=== PATIENT | male | born 1935 | race Caucasian/White ===

== ENCOUNTER 2021-12-21 11:33 | Outpatient (CLI) | payer MEDICARE, BC, SELFPAY ==
[2021-12-21 16:21] LABS: Chloride* 101 mmol/L (96-114)
[2021-12-21 16:22] LABS: Potassium* 5.3 mmol/L (3.6-5.1); Sodium* 137 mmol/L (135-149)
[2021-12-21 16:24] LABS: Carbon Dioxide* 28 mmol/L (20-32); Creatinine* 1.6 mg/dL (0.5-1.5); Estimated Glomerular Filt Rate 42 ml/min
[2021-12-21 16:25] LABS: Blood Urea Nitrogen* 27 mg/dL (7-30); Calcium* 8.8 mg/dL (8.4-10.6); Glucose* 136 mg/dL (60-115)
== END 2021-12-21 11:34 | disposition home or self-care (01) ==
LOC: LKVREF 11:34
PROVIDERS: PCP Emergency Medicine; Visit Provider Emergency Medicine
DX: I10 Essential (primary) hypertension (principal); E78.5 Hyperlipidemia, unspecified; E11.9 Type 2 diabetes mellitus without complications; M10.9 Gout, unspecified; F41.9 Anxiety disorder, unspecified
CPT/HCPCS: 80048

== ENCOUNTER 2022-01-20 15:15 | Outpatient (CLI) | payer MEDICARE, BC, SELFPAY ==
[2022-01-20 22:04] LABS: Potassium* 5.2 mmol/L (3.6-5.1)
== END 2022-01-20 15:16 | disposition home or self-care (01) ==
LOC: LKVREF 15:15
PROVIDERS: PCP Emergency Medicine; Visit Provider Emergency Medicine
DX: E87.6 Hypokalemia (principal)
CPT/HCPCS: 84132

== ENCOUNTER 2022-02-24 06:25 | Emergency (ER) | payer MEDICARE, BC, SELFPAY ==
[2022-02-24 06:27] VITALS: BP 187/116; PULSE 90; RESP 30; TEMP 36.4; O2SAT 82; BMI 34.6
[2022-02-24] MEDS: IPRAT-ALBUT 0.5-2.5 MG/3 ML NEB 1 NEB IH (06:30)
--- NOTE | 2022-02-24 06:42 | ED_ITS ---
HPI - SOB/Dyspnea General Chief Complaint: Shortness of Breath/Dyspnea <Jennifer Tatum MD - Last Filed: 02/24/22 08:12> Stated Complaint: can't breathe <Jennifer Tatum MD - Last Filed: 02/24/22 08:12> Time Seen by Provider: 02/24/22 06:38 <Jennifer Tatum MD - Last Filed: 02/24/22 08:12> Source: patient <Jennifer Tatum MD - Last Filed: 02/24/22 08:12> Mode of arrival: ambulatory <Jennifer Tatum MD - Last Filed: 02/24/22 08:12> Limitations: no limitations <Jennifer Tatum MD - Last Filed: 02/24/22 08:12> History of Present Illness HPI Narrative: 87-year-old male with a known prior history of COPD presents with increasing dyspnea, for the last week. Patient reports that he was evaluated in urgent care yesterday, chest x-ray was performed, he was giving a nebulizer solution. Was not started on antibiotics or steroids. He notes no fever but is having increasing fatigue. He has started the Combivent that they prescribed in shows me the inhaler. As cough, it is nonproductive. There is no chest pain. He denies a prior history of cardiac disease. Chest x-ray and Urgent Care notes are reviewed. He states that his appetite has been normal, illness exposures. He no longer smokes. He says that the dyspnea is getting worse despite use of the inhaler, prompting presentation to the ED. Upon arrival it is noted that his oxygen lesions or 82%. He denies chest pain or cardiac history, no orthopnea or swelling in his legs. He does have a notable prior history of sleep apnea but does not use a CPAP, as he did not get a good air seal with his baumann. He did not try any other interventions at home prior to coming to the emergency department. Past medical history notable for diabetes, COPD, hypertension, chronic kidney disease, depression. Medications are reviewed and verified through our electronic records. He denies allergies. Socially he is a former smoker but denies any pertinent travel or recent tobacco exposure. ROS is notable for the generalized and respiratory symptoms as described above, otherwise denies times 12 systems. <Jennifer Tatum MD - Last Filed: 02/24/22 08:12> Related Data Home Medications: Home Medications Medication Instructions Recorded Confirmed aspirin 81 mg tablet,delayed 81 mg PO QDAY 11/28/21 02/23/22 release gabapentin 100 mg capsule 100 mg PO TID 11/28/21 02/23/22 [id number] acid 300 1 tab PO QDAY 11/28/21 02/23/22 mcg-lycopene 600 mcg-lutein 300 mcg tablet (Centrum Silver Men) vitamin A-vitamin C-vit E-min 1 tab PO QDAY 11/28/21 02/23/22 tablet Previous Rx's Medication Instructions Recorded metoprolol succinate 50 mg 50 mg PO QDAY #90 tabs 12/07/21 tablet,extended release 24 hr allopurinol 300 mg tablet 300 mg PO QPM #90 tabs 12/21/21 escitalopram oxalate 5 mg tablet 5 mg PO QPM #90 tabs 12/21/21 hydrochlorothiazide 12.5 mg capsule 12.5 mg PO QAM #90 caps 12/21/21 lisinopril 20 mg tablet 20 mg PO QDAY #90 tabs 12/21/21 omeprazole 20 mg capsule,delayed 20 mg PO QDAY #90 caps 12/21/21 release simvastatin 40 mg tablet 40 mg PO QPM #90 tabs 12/21/21 ipratropium 20 mcg-albuterol 100 1 puff inhalation QID PRN sob #4 01/13/22 mcg/actuation mist for inhalation grams (Combivent Respimat) albuterol sulfate 90 mcg/actuation 2 inh inhalation Q2-3H PRN 02/24/22 aerosol inhaler shortness of breath or wheezing #8.5 grams azithromycin 250 mg tablet 250 mg PO DAILY 4 days #4 tabs 02/24/22 prednisone 20 mg tablet 20 mg PO DAILY #15 tabs 02/24/22 <Jennifer Tatum MD - Last Filed: 02/24/22 08:12> Allergies/Adverse Reactions: Allergies Allergy/AdvReac Type Severity Reaction Status Date / Time No Known Allergies Allergy Unverified 02/23/22 14:57 <Jennifer Tatum MD - Last Filed: 02/24/22 08:12> [facility] Medical History: Medical History (Updated 02/24/22 @ 07:51 by Jennifer Tatum MD) Barretts esophagus COPD (chronic obstructive pulmonary disease) Diabetes mellitus type 2, controlled, without complications Gastrointestinal stromal tumor (GIST) Mass of stomach Suspected sleep apnea <Jennifer Tatum MD - Last Filed: 02/24/22 08:12> Surgical History: Surgical History (Updated 12/01/21 @ 09:30 by Moe Hernandez) History of appendectomy History of hemicolectomy Status post partial gastrectomy <Jennifer Tatum MD - Last Filed: 02/24/22 08:12> Family History: Family History (Updated 12/01/21 @ 09:31 by Moe Hernandez) Mother Cancer Father Myocardial infarction <Jennifer Tatum MD - Last Filed: 02/24/22 08:12> Social History: Social History (Updated 12/01/21 @ 09:32 by Moe Hernandez) Narrative: Daily consumption of alcohol Does not use illicit drugs Former smoker Past Problems: Rarely consumes alcohol Smoking Status: Former smoker Do you use any of these nicotine containing products: None Second hand tobacco smoke exposure: No How often do you have a drink containing alcohol: never AUDIT-C Alcohol total score: 0 service: No <Jennifer Tatum MD - Last Filed: 02/24/22 08:12> Exam Const: Vital Signs, click to edit/add: Vital Signs - 24 hr 02/24/22 06:27 02/24/22 08:56 02/24/22 07:45 Temperature 97.6 F Pulse Rate [Left P ulse Oximeter] 90 86 Respiratory Rate 30 H 20 Blood Pressure [Le ft Upper Arm] 187/116 H 146/77 H Pulse Oximetry 82 L 98 98 Oxygen Delivery Me thod Room Air Nasal Cannula Nasal Cannula Oxygen Flow Rate 2 02/24/22 09:00 02/24/22 11:36 Temperature Pulse Rate [Left P ulse Oximeter] 87 87 Respiratory Rate 20 20 Blood Pressure [Le ft Upper Arm] 153/77 H 141/63 H Pulse Oximetry 94 96 Oxygen Delivery Me thod Nasal Cannula Room Air Oxygen Flow Rate <Jennifer Tatum MD - Last Filed: 02/24/22 08:12> Vital Signs, click to edit/add: Vital Signs - 24 hr 02/24/22 06:27 02/24/22 08:56 02/24/22 07:45 Temperature 97.6 F Pulse Rate [Left P ulse Oximeter] 90 86 Respiratory Rate 30 H 20 Blood Pressure [Le ft Upper Arm] 187/116 H 146/77 H Pulse Oximetry 82 L 98 98 Oxygen Delivery Me thod Room Air Nasal Cannula Nasal Cannula Oxygen Flow Rate 2 02/24/22 09:00 02/24/22 11:36 Temperature Pulse Rate [Left P ulse Oximeter] 87 87 Respiratory Rate 20 20 Blood Pressure [Le ft Upper Arm] 153/77 H 141/63 H Pulse Oximetry 94 96 Oxygen Delivery Me thod Nasal Cannula Room Air Oxygen Flow Rate <Fredrick Vincent MD - Last Filed: 02/25/22 01:08> Documenting provider has reviewed patient's vital signs: yes <Jennifer Tatum MD - Last Filed: 02/24/22 08:12> Common normals: alert <Jennifer Tatum MD - Last Filed: 02/24/22 08:12> General appearance: well kempt <Jennifer Tatum MD - Last Filed: 02/24/22 08:12> Other: Patient is visibly dyspneic with prolonged expiration, tachypnea and use of accessory muscles. There is barrel chest deformity and mild cyanosis of the lips. He is cooperative but mildly anxious which is clinically appropriate. He can not answer questions appropriately and does not seem obtunded.. <Jennifer Tatum MD - Last Filed: 02/24/22 08:12> HENMT: Common normals: normocephalic <Jennifer Tatum MD - Last Filed: 02/24/22 08:12> Head and scalp: normocephalic <Jennifer Tatum MD - Last Filed: 02/24/22 08:12> Mouth: oral and palatal mucosa normal <Jennifer Tatum MD - Last Filed: 02/24/22 08:12> Throat: posterior oropharynx normal <Jennifer Tatum MD - Last Filed: 02/24/22 08:12> Eye: Common normals: PERRL and conjunctivae normal <MD Stephy Mancini Last Filed: 02/24/22 08:12> Conjunctiva: conjunctiva(e) normal <MD Stephy Mancini Last Filed: 02/24/22 08:12> Pupil: PERRL <MD Stephy Mancini Last Filed: 02/24/22 08:12> Neck & C-Spine: Common normals: full ROM and no lymphadenopathy <MD Stephy Mancini Last Filed: 02/24/22 08:12> Chest: Other: Chronic COPD changes to the chest, nontender <MD Stephy Mancini Last Filed: 02/24/22 08:12> Resp: Other: Increased respiratory effort noted, marked prolongation of expiration about a 5- 1 ratio. Course expiratory wheeze but no obvious crackles. <MD Stephy Mancini Last Filed: 02/24/22 08:12> Cardio: Common normals: regular rate, regular rhythm, no murmurs and peripheral pulses 2+ throughout <MD Stephy Mancini Last Filed: 02/24/22 08:12> Rate: regular rate <MD Stephy Mancini Last Filed: 02/24/22 08:12> Rhythm: regular rhythm <MD Stephy Mancini Last Filed: 02/24/22 08:12> Peripheral pulses: pulses 2+ throughout <MD Stephy Mancini Last Filed: 02/24/22 08:12> GI: Common normals: Normal to inspection, nondistended, normoactive bowel sounds present, soft to palpation, non-tender and no hepatosplenomegaly <MD Stephy Mancini Last Filed: 02/24/22 08:12> Palpation: soft and no hepatosplenomegaly <MD Stephy Mancini Last Fi led: 02/24/22 08:12> Extremity: Common normals: normal to inspection, normal capillary refill and no pedal edema <MD Stephy Mancini Last Filed: 02/24/22 08:12> Neuro: Sensorium/orientation: alert <Jennifer Tatum MD - Last Filed: 02/24/22 08:12> Speech: speech normal <Jennifer Tatum MD - Last Filed: 02/24/22 08:12> Motor exam: no tremor noted and no movement abnormalities noted <Jennifer Tatum MD - Last Filed: 02/24/22 08:12> Psych: Common normals: speech normal <Jennifer Tatum MD - Last Filed: 02/24/22 08:12> Appearance: well kempt <Jennifer Tatum MD - Last Filed: 02/24/22 08:12> Attitude: engaged <Jennifer Tatum MD - Last Filed: 02/24/22 08:12> Speech: normal speech <Jennifer Tatum MD - Last Filed: 02/24/22 08:12> Insight: insight good <Jennifer Tatum MD - Last Filed: 02/24/22 08:12> Judgement: judgment good <Jennifer Tatum MD - Last Filed: 02/24/22 08:12> Skin: Common normals: no rashes or lesions noted <Jennifer Tatum MD - Last Filed: 02/24/22 08:12> General skin exam: no rashes or lesions noted <Jennifer Tatum MD - Last Filed: 02/24/22 08:12> Course Reevaluation(s) Reevaluation #1: Received Mr. Galvan at change of shift. Pending effect of steroid. He has received antibiotics. Oxygenating upper 90s on 2 L per nasal cannula. Reports feeling he is wheezy and a little short of breath but overall improved. Will titrate back on oxygen given COPD dx. <Fredrick Vincent MD - Last Filed: 02/25/22 01:08> Reevaluation #2: COVID positive. Reviewing this with Mr. Galvan reveals that he had COVID a month ago he says. Doing better from a respiratory standpoint. Oxygen has been turned off. Will also ambulate to check oxygen saturation. <Fredrick Vincent MD - Last Filed: 02/25/22 01:08> Reevaluation #3: Oxygen saturations now maintained at acceptable level. Overall feels improved. Regardless no beds available in this hospital or regionally at this time. <Fredrick Vincent MD - Last Filed: 02/25/22 01:08> Vital Signs Vital signs: Initial Vital Signs Temperature 97.6 F 02/24/22 06:27 Temperature Source Temporal Artery Scan 02/24/22 06:27 Pulse Rate 90 02/24/22 06:27 Respiratory Rate 30 H 02/24/22 06:27 Blood Pressure 187/116 H 02/24/22 06:27 Blood Pressure Mean 139 02/24/22 06:27 Blood Pressure Position High-Fowlers 02/24/22 06:27 Pulse Oximetry 82 L 02/24/22 06:27 Oxygen Delivery Method 02/24/22 06:27 Vital Signs Temperature 97.6 F 02/24/22 06:27 Pulse Rate 90 02/24/22 06:27 Respiratory Rate 30 H 02/24/22 06:27 Blood Pressure 187/116 H 02/24/22 06:27 Pulse Oximetry 82 L 02/24/22 06:27 Oxygen Delivery Method 02/24/22 06:27 Temperature 97.6 F 02/24/22 06:27 Pulse Rate 87 02/24/22 11:36 Respiratory Rate 20 02/24/22 11:36 Blood Pressure 141/63 H 02/24/22 11:36 Pulse Oximetry 96 02/24/22 11:36 Oxygen Delivery Method 02/24/22 11:36 Oxygen Flow Rate 2 02/24/22 07:45 <Jennifer Tatum MD - Last Filed: 02/24/22 08:12> Initial Vital Signs Temperature 97.6 F 02/24/22 06:27 Temperature Source Temporal Artery Scan 02/24/22 06:27 Pulse Rate 90 02/24/22 06:27 Respiratory Rate 30 H 02/24/22 06:27 Blood Pressure 187/116 H 02/24/22 06:27 Blood Pressure Mean 139 02/24/22 06:27 Blood Pressure Position High-Fowlers 02/24/22 06:27 Pulse Oximetry 82 L 02/24/22 06:27 Oxygen Delivery Method 02/24/22 06:27 Vital Signs Temperature 97.6 F 02/24/22 06:27 Pulse Rate 90 10/28/22 06:27 Respiratory Rate 30 H 02/24/22 06:27 Blood Pressure 187/116 H 02/24/22 06:27 Pulse Oximetry 82 L 02/24/22 06:27 Oxygen Delivery Method 02/24/22 06:27 Temperature 97.6 F 02/24/22 06:27 Pulse Rate 87 02/24/22 11:36 Respiratory Rate 20 02/24/22 11:36 Blood Pressure 141/63 H 02/24/22 11:36 Pulse Oximetry 96 02/24/22 11:36 Oxygen Delivery Method 02/24/22 11:36 Oxygen Flow Rate 2 02/24/22 07:45 <Fredrick Vincent MD - Last Filed: 02/25/22 01:08> MDM - SOB/Dyspnea MDM Narrative Medical decision making narrative: Hypoxia noted on arrival, placed on supplemental oxygen. Oxygen saturations improved to about 90% pretty quickly with this intervention. He will receive DuoNeb, laboratory studies. The benefit outweighs the risk in starting steroids. I have reviewed the previous chest x-ray performed yesterday, will not repeat. No obvious signs of heart failure but significant changes with chronic COPD. Will start Rocephin and azithromycin. He will likely need hospitalization. Differential diagnosis also includes acute coronary syndrome, pulmonary embolism. Laboratory studies to look at troponins will be performed. EKG is performed and is reassuring. Awaiting clinical response and re-evaluation. 7:30 a.m.: Repeat evaluation: A little less dyspnea, oxygen levels now around 90% on 2 L nasal cannula but feels less dyspneic after DuoNeb. Still markedly wheezy with prolongation of expiration and coarse breath sounds. Lab studies reviewed, actually a little better than usual for him. Blood pressure noted to be improved. Troponins negative, chest x-ray findings reviewed from yesterday with patient, not repeated. Admission discussed. He cannot maintain appropriate saturations without supplemental oxygen. I suspect that he would benefit from admission, additional IV steroids and antibiotics to help with his acute hypoxic respiratory failure. We do not have a bed available currently better likely to have 1 later this morning. He is willing to wait for 1 here rather than transfer to an outside hospital as there are no other beds available within a 2 hour radius. In the interim, I will order a regular diet, order DuoNebs p.r.n.. He has already started IV steroids and antibiotics. We will have Pharmacy verify his morning medications that we may get these ordered as well. A.c. at bedtime Accu-Cheks with sliding scale insulin ordered. Hand off to be given to Dr. Davis. <Jennifer Tatum MD - Last Filed: 02/24/22 08:12> Differential Diagnosis Differential diagnosis: Likely acute exacerbation of chronic obstructive airways disease, congestive heart failure, community acquired pneumonia, asthma with exacerbation and pulmonary embolism <Jennifer Tatum MD - Last Filed: 02/24/22 08:12> Medical Records Attestation: I reviewed the patient's medical records. <Jennifer Tatum MD - Last Filed: 02/24/22 08:12> Lab Data Attestation: I reviewed the patient's lab results. <Jennifer Tatum MD - Last Filed: 02/24/22 08:12> Labs: Lab Results 02/24/22 02/24/22 02/24/22 Range/Units 06:35 06:35 06:38 WBC (4.50-11.00) K/uL RBC (4.30-5.90) m/uL Hgb (13.5-17.5) gm/dL Hct (37.0-53.0) % MCV (80-100) fL MCH (26-34) pg MCHC (32-36) gm/dL RDW Coeff of Juanita (11.5-15.5) % Plt Count (140-440) K/uL Neut % (Auto) (42.0-72.0) % Lymph % (Auto) (20-44) % [place] % (Auto) (0.0-11.0) % Eos % (Auto) (0.0-7.0) % Baso % (Auto) (0.0-3.0) % Neut # (Auto) (1.7-7.0) K/uL Lymph # (Auto) (0.90-2.90) K/uL [place] # (Auto) (0.00-0.90) K/UL Eos # (Auto) (0.00-0.50) K/uL Baso # (Auto) (0.00-0.30) K/uL Abs Immat Gran (auto) (0.00-0.30) K/uL VBG pH 7.313 L (7.32-7.43) VBG pCO2 48 (40-50) mmHG VBG pO2 47.9 H (25-47) mmHG VBG HCO3 24 (21-28) mmol/L Sodium (135-149) mmol/L Potassium (3.6-5.1) mmol/L Chloride (96-114) mmol/L Carbon Dioxide (20-32) mmol/L BUN (7-30) mg/dL Creatinine (0.5-1.5) mg/dL Estimated Creat Clear Estimated GFR ml/min Glucose (60-115) mg/dL Calcium (8.4-10.6) mg/dL C-Reactive Protein (0.5-1.0) mg/dL NT-Pro-B Natriuret Pep 357 (0-450) PG/mL SARS-CoV-2 (PCR) POSITIVE SARS-CoV-2 A (Negative) Influenza Type A (PCR) Negative PCR FLU A (Negative) Influenza Type B (PCR) Negative PCR FLU B (Negative) RSV (PCR) Negative PCR RSV (Negative) POC Glucose (60-115) mg/dl POC Troponin I (0.01-0.04) ng/ml 02/24/22 02/24/22 02/24/22 Range/Units 06:40 06:40 06:40 WBC 7.80 (4.50-11.00) K/uL RBC 3.66 L (4.30-5.90) m/uL Hgb 12.4 L (13.5-17.5) gm/dL Hct 37.5 (37.0-53.0) % MCV 103 H (80-100) fL MCH 34 (26-34) pg MCHC 33 (32-36) gm/dL RDW Coeff of Juanita 13.0 (11.5-15.5) % Plt Count 162 (140-440) K/uL Neut % (Auto) 50.8 (42.0-72.0) % Lymph % (Auto) 29.1 (20-44) % [place] % (Auto) 5.8 (0.0-11.0) % Eos % (Auto) 12.4 H (0.0-7.0) % Baso % (Auto) 0.4 (0.0-3.0) % Neut # (Auto) 3.96 (1.7-7.0) K/uL Lymph # (Auto) 2.27 (0.90-2.90) K/uL [place] # (Auto) 0.50 (0.00-0.90) K/UL Eos # (Auto) 1.00 H (0.00-0.50) K/uL Baso # (Auto) 0.03 (0.00-0.30) K/uL Abs Immat Gran (auto) 0.12 (0.00-0.30) K/uL VBG pH (7.32-7.43) VBG pCO2 (40-50) mmHG VBG pO2 (25-47) mmHG VBG HCO3 (21-28) mmol/L Sodium 137 (135-149) mmol/L Potassium 4.6 (3.6-5.1) mmol/L Chloride 103 (96-114) mmol/L Carbon Dioxide 22 (20-32) mmol/L BUN 25 (7-30) mg/dL Creatinine 1.5 (0.5-1.5) mg/dL Estimated Creat Clear 37.65 Estimated GFR 45 ml/min Glucose 135 H (60-115) mg/dL Calcium 8.4 (8.4-10.6) mg/dL C-Reactive Protein 0.7 (0.5-1.0) mg/dL NT-Pro-B Natriuret Pep (0-450) PG/mL SARS-CoV-2 (PCR) (Negative) Influenza Type A (PCR) (Negative) Influenza Type B (PCR) (Negative) RSV (PCR) (Negative) POC Glucose (60-115) mg/dl POC Troponin I 0.01 (0.01-0.04) ng/ml 02/24/22 Range/Units 08:00 WBC (4.50-11.00) K/uL RBC (4.30-5.90) m/uL Hgb (13.5-17.5) gm/dL Hct (37.0-53.0) % MCV (80-100) fL MCH (26-34) pg MCHC (32-36) gm/dL RDW Coeff of Juanita (11.5-15.5) % Plt Count (140-440) K/uL Neut % (Auto) (42.0-72.0) % Lymph % (Auto) (20-44) % [place] % (Auto) (0.0-11.0) % Eos % (Auto) (0.0-7.0) % Baso % (Auto) (0.0-3.0) % Neut # (Auto) (1.7-7.0) K/uL Lymph # (Auto) (0.90-2.90) K/uL [place] # (Auto) (0.00-0.90) K/UL Eos # (Auto) (0.00-0.50) K/uL Baso # (Auto) (0.00-0.30) K/uL Abs Immat Gran (auto) (0.00-0.30) K/uL VBG pH (7.32-7.43) VBG pCO2 (40-50) mmHG VBG pO2 (25-47) mmHG VBG HCO3 (21-28) mmol/L Sodium (135-149) mmol/L Potassium (3.6-5.1) mmol/L Chloride (96-114) mmol/L Carbon Dioxide (20-32) mmol/L BUN (7-30) mg/dL Creatinine (0.5-1.5) mg/dL Estimated Creat Clear Estimated GFR ml/min Glucose (60-115) mg/dL Calcium (8.4-10.6) mg/dL C-Reactive Protein (0.5-1.0) mg/dL NT-Pro-B Natriuret Pep (0-450) PG/mL SARS-CoV-2 (PCR) (Negative) Influenza Type A (PCR) (Negative) Influenza Type B (PCR) (Negative) RSV (PCR) (Negative) POC Glucose 150 H (60-115) mg/dl POC Troponin I (0.01-0.04) ng/ml <Jennifer Tatum MD - Last Filed: 02/24/22 08:12> Lab Results 02/24/22 02/24/22 02/24/22 Range/Units 06:35 06:35 06:38 WBC (4.50-11.00) K/uL RBC (4.30-5.90) m/uL Hgb (13.5-17.5) gm/dL Hct (37.0-53.0) % MCV (80-100) fL MCH (26-34) pg MCHC (32-36) gm/dL RDW Coeff of Juanita (11.5-15.5) % Plt Count (140-440) K/uL Neut % (Auto) (42.0-72.0) % Lymph % (Auto) (20-44) % [place] % (Auto) (0.0-11.0) % Eos % (Auto) (0.0-7.0) % Baso % (Auto) (0.0-3.0) % Neut # (Auto) (1.7-7.0) K/uL Lymph # (Auto) (0.90-2.90) K/uL [place] # (Auto) (0.00-0.90) K/UL Eos # (Auto) (0.00-0.50) K/uL Baso # (Auto) (0.00-0.30) K/uL Abs Immat Gran (auto) (0.00-0.30) K/uL VBG pH 7.313 L (7.32-7.43) VBG pCO2 48 (40-50) mmHG VBG pO2 47.9 H (25-47) mmHG VBG HCO3 24 (21-28) mmol/L Sodium (135-149) mmol/L Potassium (3.6-5.1) mmol/L Chloride (96-114) mmol/L Carbon Dioxide (20-32) mmol/L BUN (7-30) mg/dL Creatinine (0.5-1.5) mg/dL Estimated Creat Clear Estimated GFR ml/min Glucose (60-115) mg/dL Calcium (8.4-10.6) mg/dL C-Reactive Protein (0.5-1.0) mg/dL NT-Pro-B Natriuret Pep 357 (0-450) PG/mL SARS-CoV-2 (PCR) POSITIVE SARS-CoV-2 A (Negative) Influenza Type A (PCR) Negative PCR FLU A (Negative) Influenza Type B (PCR) Negative PCR FLU B (Negative) RSV (PCR) Negative PCR RSV (Negative) POC Glucose (60-115) mg/dl POC Troponin I (0.01-0.04) ng/ml 02/24/22 02/24/22 02/24/22 Range/Units 06:40 06:40 06:40 WBC 7.80 (4.50-11.00) K/uL RBC 3.66 L (4.30-5.90) m/uL Hgb 12.4 L (13.5-17.5) gm/dL Hct 37.5 (37.0-53.0) % MCV 103 H (80-100) fL MCH 34 (26-34) pg MCHC 33 (32-36) gm/dL RDW Coeff of Jaunita 13.0 (11.5-15.5) % Plt Count 162 (140-440) K/uL Neut % (Auto) 50.8 (42.0-72.0) % Lymph % (Auto) 29.1 (20-44) % [place] % (Auto) 5.8 (0.0-11.0) % Eos % (Auto) 12.4 H (0.0-7.0) % Baso % (Auto) 0.4 (0.0-3.0) % Neut # (Auto) 3.96 (1.7-7.0) K/uL Lymph # (Auto) 2.27 (0.90-2.90) K/uL [place] # (Auto) 0.50 (0.00-0.90) K/UL Eos # (Auto) 1.00 H (0.00-0.50) K/uL Baso # (Auto) 0.03 (0.00-0.30) K/uL Abs Immat Gran (auto) 0.12 (0.00-0.30) K/uL VBG pH (7.32-7.43) VBG pCO2 (40-50) mmHG VBG pO2 (25-47) mmHG VBG HCO3 (21-28) mmol/L Sodium 137 (135-149) mmol/L Potassium 4.6 (3.6-5.1) mmol/L Chloride 103 (96-114) mmol/L Carbon Dioxide 22 (20-32) mmol/L BUN 25 (7-30) mg/dL Creatinine 1.5 (0.5-1.5) mg/dL Estimated Creat Clear 37.65 Estimated GFR 45 ml/min Glucose 135 H (60-115) mg/dL Calcium 8.4 (8.4-10.6) mg/dL C-Reactive Protein 0.7 (0.5-1.0) mg/dL NT-Pro-B Natriuret Pep (0-450) PG/mL SARS-CoV-2 (PCR) (Negative) Influenza Type A (PCR) (Negative) Influenza Type B (PCR) (Negative) RSV (PCR) (Negative) POC Glucose (60-115) mg/dl POC Troponin I 0.01 (0.01-0.04) ng/ml 02/24/22 Range/Units 08:00 WBC (4.50-11.00) K/uL RBC (4.30-5.90) m/uL Hgb (13.5-17.5) gm/dL Hct (37.0-53.0) % MCV (80-100) fL MCH (26-34) pg MCHC (32-36) gm/dL RDW Coeff of Juanita (11.5-15.5) % Plt Count (140-440) K/uL Neut % (Auto) (42.0-72.0) % Lymph % (Auto) (20-44) % [place] % (Auto) (0.0-11.0) % Eos % (Auto) (0.0-7.0) % Baso % (Auto) (0.0-3.0) % Neut # (Auto) (1.7-7.0) K/uL Lymph # (Auto) (0.90-2.90) K/uL [place] # (Auto) (0.00-0.90) K/UL Eos # (Auto) (0.00-0.50) K/uL Baso # (Auto) (0.00-0.30) K/uL Abs Immat Gran (auto) (0.00-0.30) K/uL VBG pH (7.32-7.43) VBG pCO2 (40-50) mmHG VBG pO2 (25-47) mmHG VBG HCO3 (21-28) mmol/L Sodium (135-149) mmol/L Potassium (3.6-5.1) mmol/L Chloride (96-114) mmol/L Carbon Dioxide (20-32) mmol/L BUN (7-30) mg/dL Creatinine (0.5-1.5) mg/dL Estimated Creat Clear Estimated GFR ml/min Glucose (60-115) mg/dL Calcium (8.4-10.6) mg/dL C-Reactive Protein (0.5-1.0) mg/dL NT-Pro-B Natriuret Pep (0-450) PG/mL SARS-CoV-2 (PCR) (Negative) Influenza Type A (PCR) (Negative) Influenza Type B (PCR) (Negative) RSV (PCR) (Negative) POC Glucose 150 H (60-115) mg/dl POC Troponin I (0.01-0.04) ng/ml <Fredrick Vincent MD - Last Filed: 02/25/22 01:08> Discharge Plan Discharge Clinical Impression: Acute respiratory failure with hypoxia, Acute exacerbation of chronic obstructive pulmonary disease (COPD) <Jennifer Tatum MD - Last Filed: 02/24/22 08:12> Patient Disposition: Home, Self-Care <Jennifer Tatum MD - Last Filed: 02/24/22 08:12> Condition: Improved <Jennifer Tatum MD - Last Filed: 02/24/22 08:12> Additional Instructions: I understand you have a follow-up with your primary care provider this following Sunday. You will be receiving another inhaler to use if you're feeling wheezy outside of the regularly scheduled Combivent. For both of these, please use with a spacer. Ask the pharmacist for spacer please. Return for persistent increasing shortness of breath, on associated fever, chest pain. As you are on a steroid, prednisone, please watch your blood sugars closely. <Jennifer Tatum MD - Last Filed: 02/24/22 08:12> Prescriptions: New prednisone 20 mg tablet 20 mg PO DAILY Qty: 15 0RF Rx Instructions: Take 60 mg starting on 02/25, take 40 mg days 2 through 5, then 20 mg daily days 6 through 10 azithromycin 250 mg tablet 250 mg PO DAILY 4 Days Qty: 4 0RF Taper: Z-MAGGI 250 mg Q24H for 4 Days and 0 Hour Rx Instructions: start on day 2 of therapy (02/25) albuterol sulfate 90 mcg/actuation HFA aerosol inhaler 2 inh inhalation Q2-3H PRN (Reason: shortness of breath or wheezing) Qty: 8.5 1RF Rx Instructions: use with spacer No Action allopurinol 300 mg tablet 300 mg PO QPM Qty: 90 1RF escitalopram oxalate 5 mg tablet 5 mg PO QPM Qty: 90 1RF hydrochlorothiazide 12.5 mg capsule 12.5 mg PO QAM Qty: 90 1RF lisinopril 20 mg tablet 20 mg PO QDAY Qty: 90 1RF omeprazole 20 mg capsule,delayed release(DR/EC) 20 mg PO QDAY Qty: 90 1RF simvastatin 40 mg tablet 40 mg PO QPM Qty: 90 1RF gabapentin 100 mg capsule 100 mg PO TID aspirin 81 mg tablet,delayed release (DR/EC) 81 mg PO QDAY vitamin A-vitamin C-vit E-min Tablet 1 tab PO QDAY Centrum Silver Men 300-600-300 mcg tablet 1 tab PO QDAY metoprolol succinate 50 mg tablet extended release 24 hr 50 mg PO QDAY Qty: 90 3RF Combivent Respimat 20-100 mcg/actuation mist 1 puff inhalation QID PRN (Reason: sob) Qty: 4 2RF Rx Instructions: space evenly during waking hours <Jennifer Tatum MD - Last Filed: 02/24/22 08:12> Follow Up/Referrals: Alexa Meng MD [Primary Care Provider] - <Jennifer Tatum MD - Last Filed: 02/24/22 08:12> [facility] <Jennifer Tatum MD - Last Filed: 02/24/22 08:12>
[2022-02-24 06:52] LABS: HCO3 VBG 24 mmol/L (21-28); PCO2 VBG 48 mmHG (40-50); PO2 VBG 47.9 mmHG (25-47); pH VBG 7.313 (7.32-7.43)
[2022-02-24 06:57] LABS: Basophils Absolute Auto 0.03 K/uL (0.00-0.30); Basophils Percent Auto 0.4 % (0.0-3.0); Eosinophils Percent Auto 12.4 % (0.0-7.0); Hematocrit 37.5 % (37.0-53.0); Hemoglobin* 12.4 gm/dL (13.5-17.5); Immature Granulocytes Abs Auto 0.12 K/uL (0.00-0.30); Lymphocytes Absolute Auto 2.27 K/uL (0.90-2.90); Lymphocytes Percent Auto 29.1 % (20-44); Mean Corpuscular HGB Conc 33 gm/dL (32-36); Mean Corpuscular Hemoglobin 34 pg (26-34); Mean Corpuscular Volume 103 fL (80-100); Monocytes Percent Auto 5.8 % (0.0-11.0); Neutrophils Absolute Auto 3.96 K/uL (1.7-7.0); Neutrophils Percent Auto 50.8 % (42.0-72.0); Platelet Count* 162 K/uL (140-440); Red Blood Count 3.66 m/uL (4.30-5.90)
[2022-02-24 06:58] LABS: Slide Review Reflex No
--- OUTSIDE RECORDS SUMMARY | 2022-02-24 07:13 | XMS_ITS | Encounter Summary ---
:1935 Author Organization [place] Address [facility] [place] [address] Care Team Providers Name Role Phone Antonio Cummings MD Primary Care Provider [facility], [facility]- Reason for Referral Specialty Diagnoses / Procedures Referred By Contact Refer red To Contact Ivelisse Purvis PA-C [address] [place] [address] Referral ID Status Reason Start Date Expiration Date Visits Requ ested Visits Authorized Reason for Visit Reason Comments Fall Encounter Details Date Type Department Care Team Description 12/15/2019 - Emergency [facility] Anusha Barboza DO [facility] [address] [place] [address] Mucosal abnormality of stomach (Primary Dx); 12/16/2019 Ridge Blu Dave MD [address] [place] [address] Abrasion of face, initial encounter; Dept Alcoholic intoxication witho ut complication (H); [address] Hypoglycemia; [place] Adrenal nodul e (H); [id number] of the abdomen; [phone] Abrasion of rig ht knee, initial encounter Social History Tobacco Use Types Packs/Day Years Used Date Smoking Tobacco: Former Alcohol Use Standard Drinks/Week Comments Yes 0.8 (1 standard drink = 0.6 oz pure alco hol) Sex Assigned at Date Recorded Not on file documented as of this encounter Last Filed Vital Signs Vital Sign Reading Time Taken Comments Blood Pressure 132/56 12/16/2019 7:41 AM CDT Pulse 69 12/16/2019 12:30 AM CDT Temperature 35.9 ??C (96.7 ??F) 12/16/2019 7:41 AM CDT Respiratory Rate 20 12/16/2019 7:41 AM CDT Oxygen Saturation 96% 12/16/2019 7:41 AM CDT Inhaled Oxygen Concentration - - Weight 112.4 kg (247 lb 12.8 oz) 12/16/2019 12:54 AM CDT Height 182.9 cm (6') 12/16/2019 12:54 AM CDT Body Mass Index 33.61 12/16/2019 12:54 AM CDT documented in this encounter Discharge Summaries Ivelisse Purvis PA-C - 12/16/2019 10:36 AM CDT [facility] Discharge Summary Hospitalist Date of Admission: 12/15/2019 Date of Discharge: 12/16/2019 Discharging Provider: Ivelisse Purvis PA-C Date of Service (when I saw the patient): 12/16/19 Discharge Diagnoses Fall Facial skin abrasion Alcohol Intoxication Suspected Alcohol dependence Hypoglycemia Hypertension Renal Insuffiencey Abnormal Stomach Mucosa appearance on CT Incidental Adrenal Nodule History of Present Illness Mat Galvan is a 84 year old male with PMhx of diabetes mellitus, HTN, CKD, GERD, lung nodules, arthritis, alcohol dependence, who was brought to the ED by EMS after a fall in his garage while intoxicated where he sustained several skin abrasions. He was registered to Observation for management ofhis hypoglycemia. His blood sugars improved with hold of his previously prescribed glipizide and dietary resumption as it was unclear when the patient had eaten a regular meal last. The patient was intoxicated on admission with a detectable etoh level. His CIWA scores were low during observation stay and the patient refused any alcohol cessation resources, was not interested in sobriety at this time.Imaging in the ED was negative for fractures, however it was suspected he may have sustained injury to his right anterolateral ribs which was treated supportively. 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 Please see admitting H & P for full details of the encounter. Pending Results These results will be followed up by lab with further directions if positive. Unresulted Labs Ordered in the Past 30 Days of this Admission Date and Time Order Name Status Description 12/16/2019 0002 Asymptomatic COVID-19 Virus (Coronavirus) by PCR In process Code Status Full Code Primary Care Physician [facility] INTERVAL HISTORY Patient has slight pain in his right sided anterolateral ribs with position changes and deep inspiration. Pain is controlled. No cough, fevers, chest pain. Tolerating normal diet. No nausea, vomiting. Glucoses improved. No dizziness, lightheaded, vision changes. CIWA scores low. No hallucinations. No fevers, chills. BP 132/56 Pulse 69 Temp 96.7 ??F (35.9 ??C) (Oral) Resp 20 Ht 1.829 m (6') Wt 112.4 kg (247 lb 12.8 oz) SpO2 96% BMI 33.61 kg/m?? Constitutional: Awake, alert, no apparent distress Respiratory: Normal work of breathing. Lungs clear to auscultation bilaterally, no crackles or wheezing. Cardiovascular: Regular rate and rhythm, normal S1 and S2, and no murmur appreciated. GI: Bowel sounds present. soft, non-distended, non-tender. Skin/Integument: Warm, dry. Right cheekbone with soft tissue swelling ecchymosis and superficial mandibular abrasion. MK: No gross deformities. Moving all extremities. Pain with palpations of anterolateral right sided ribs. Left superficial patellar abrasion. Neuro: No focal deficits. Slight intentional tremor. Coordination and sensation grossly intact. Speech clear. No focal deficits. Psych: Appropriate affect. No hallucinations, SI/SA. ?? Discharge Disposition Discharged to home Condition at discharge: Stable Consultations This Hospital Stay SOCIAL WORK IP CONSULT Time Spent on this Encounter IIvelisse PA-C, personally saw the patient today and spent greater than 30 minutes discharging this patient. Discharge Orders Gastroenterology Peds Referral +/- Procedure Reason for your hospital stay You were hospitalized after a fall sustained while drinking alcohol. You sustained a closed head injury and likely have some fractured right sided ribs. Imaging was negative for fracture or head bleed. During your hospital stay you were also noted to have low blood sugars. Your sugars improved after eating. Follow-up and recommended labs and tests Follow up with primary care provider, [facility], within 7 days to evaluate medication change and for hospital follow- up. The following labs/tests are recommended: BMP, Endoscopy with GI is for further evaluation of stomach polyp seen on CT. You should also have a repeat unenhanced CT of incidental 1.8 cm right adrenal nodule. Activity Your activity upon discharge: activity as tolerated When to contact your care team Call your primary care doctor if you have any of the following: temperature greater than 101 F, worsening shortness of breath, increased swelling, worsening pain, new or unrelenting diarrhea, or any other concerning symptoms. Call 911 or go to the emergency room if you need immediate assistance or ifyou have return of persistent low blood sugars <70. Monitor and record blood glucose as previously directed by your primary care provider. Monitor for blood in your stools or dark tarry stools. Discharge Instructions I recommend that you continue to check your blood sugars at home as previously directed by your primary care doctor. If your blood sugar is under 70 I want you to take a glucose tab or have a small amount of candy or juice and recheck your blood sugar. If persistently under 70 please present to the ED or notify your primary care provider for further recommendations. Please continue incentive spirometer to prevent a pneumonia. For your pain I recommend tylenol, ice and heat packs. For your skin abrasion on your face you may leave the wound open and cleanse gently with water, can use bacitracin ointment as needed. Diet Follow this diet upon discharge: Regular Discharge Medications Discharge Medication List as of 12/16/2019 10:06 AM START taking these medications Details acetaminophen (TYLENOL) 325 MG tablet Take 2 tablets (650 mg) by mouth every 4 hours as needed for mild pain, No Print Out glucose (BD GLUCOSE) 4 g chewable tablet Take 1 tablet by mouth every hour as needed for low blood sugar (For low blood sugars under 80) Please recheck your blood sugar after taking this to make sure it is coming up., Disp-10 tablet,R-0, E-Prescribe thiamine (B-1) 100 MG tablet Take 1 tablet (100 mg) by mouth daily Future refills by PCP [facility] with phone number [phone]., Disp-30 tablet,R-0, E-Prescribe CONTINUE these medications which have NOT CHANGED Details allopurinol (ZYLOPRIM) 300 MG tablet Take 300 mg by mouth daily., 300 mg, Oral, DAILY, Until Discontinued, Historical aspirin 81 MG tablet Take 1 tablet by mouth daily., 1 tablet, Oral, DAILY, Until Discontinued, Historical atenolol (TENORMIN) 50 MG tablet Take 50 mg by mouth daily., 50 mg, Oral, DAILY, Until Discontinued,Historical FISH OIL Does not apply, Until Discontinued, Historical lisinopril-hydrochlorothiazide (PRINZIDE,ZESTORETIC) 20-25 MG per tablet Take 1 tablet by mouth daily., 1 tablet, Oral, DAILY, Until Discontinued, Historical Omeprazole 20 MG tablet Take 20 mg by mouth daily., 20 mg, Oral, DAILY, Until Discontinued, Historical simvastatin (ZOCOR) 40 MG tablet Take 40 mg by mouth At Bedtime., 40 mg, Oral, AT BEDTIME, Until Discontinued, Historical STOP taking these medications glipiZIDE (GLUCOTROL XL) 2.5 MG 24 hr tablet Comments: Reason for Stopping: Allergies No Known Allergies Data Most Recent 3 CBC's: Recent Labs Lab Test 12/15/192215 WBC 7.9 HGB 12.6* MCV 104* PLT 143* Most Recent 3 BMP's: Recent Labs Lab Test 12/16/19 0804 12/15/19 221 NA 135 133 POTASSIUM 4.1 3.5 CHLORIDE 104 100 CO2 27 27 BUN 21 23 CR 1.44* 1.54* ANIONGAP 4 6 ANAND 8.0* 7.8* GLC 67* 56* Most Recent 2 LFT's: Recent Labs Lab Test 12/15/192215 AST 58* ALT 50 ALKPHOS 66 BILITOTAL 0.3 Most Recent INR's and Anticoagulation Dosing History: Anticoagulation Dose History Recent Dosing and Labs Latest Ref Rng & Units 12/15/2019 INR 0.86 - 1.14 1.00 Most Recent 3 Troponin's: Recent Labs Lab Test 12/15/19 2216 TROPI <0.015 Recent Labs Lab Test 12/15/19 2216 A1C 5.4 Results for orders placed or performed during the hospital encounter of 12/15/19 CT Head w/o Contrast Narrative EXAM: CT HEAD W/O CONTRAST LOCATION: [facility] DATE/TIME: 12/15/2019 10:38 PM INDICATION: Head injury COMPARISON: None. TECHNIQUE: Routine without IV contrast. Multiplanar reformats. Dose reduction techniques were used. FINDINGS: INTRACRANIAL CONTENTS: No intracranial hemorrhage, extraaxial collection, or mass effect. No CT evidence of acute infarct. Mild presumed chronic small vessel ischemic changes. Moderate generalized volume loss. No hydrocephalus. VISUALIZED ORBITS/SINUSES/MASTOIDS: Borderline bilateral proptosis. Moderate mucosal thickening scattered about the paranasal sinuses. No middle ear or mastoid effusion. BONES/SOFT TISSUES: No acute abnormality. Impression IMPRESSION: 1. No acute intracranial process. CT Cervical Spine w/o Contrast Narrative EXAM: CT CERVICAL SPINE W/O CONTRAST LOCATION: [facility] DATE/TIME: 12/15/2019 10:39 PM INDICATION: Neck injury COMPARISON: None. TECHNIQUE: Routine without IV contrast. Multiplanar reformats. Dose reduction techniques were used. FINDINGS: VERTEBRA: Normal vertebral body heights and alignment. No fracture or posttraumatic subluxation. CANAL/FORAMINA: Mild to moderate degenerative changes with mild canal narrowing at C6-C7. Mild left foraminal narrowing at C3-C4, C4-C5, and C6/C7. PARASPINAL: No extraspinal abnormality. Impression IMPRESSION: 1. No definite fracture. 2. Degenerative changes, as described. CT Facial Bones without Contrast Narrative EXAM: CT FACIAL BONES WITHOUT CONTRAST LOCATION: [facility] DATE/TIME: 12/15/2019 10:39 PM INDICATION: Facial injury COMPARISON: None. TECHNIQUE: Routine without IV contrast. Multiplanar reformats. Dose reduction techniques were used. FINDINGS: OSSEOUS STRUCTURES/SOFT TISSUES: Moderate soft tissue swelling overlying right cheek. No facial bonefracture or malalignment. No evidence for dental trauma or periapical abscess. ORBITAL CONTENTS: No acute abnormality. SINUSES: Moderate mucosal thickening scattered about the paranasal sinuses. VISUALIZED INTRACRANIAL CONTENTS: No acute abnormality. Impression IMPRESSION: 1. No definite fracture. CT Chest/Abdomen/Pelvis w Contrast Narrative EXAM: CT CHEST/ABDOMEN/PELVIS W CONTRAST LOCATION: [facility] DATE/TIME: 12/15/2019 10:40 PM INDICATION: Trauma -???Chest, abdomen, and pelvis injury. Fall. Pain. COMPARISON: None. TECHNIQUE: CT scan of the chest, abdomen, and pelvis was performed following injection of IV contrast. Multiplanar reformats were obtained. Dose reduction techniques were used. CONTRAST: 100mL Isovue-370 FINDINGS: LUNGS AND PLEURA: Small esophageal hiatal hernia. MEDIASTINUM/AXILLAE: Coronary artery calcification. HEPATOBILIARY: Normal. PANCREAS: Normal. SPLEEN: Calcified granulomata. ADRENAL GLANDS: Motion artifact. 1.8 cm nodule in the right adrenal gland is most likely an adenoma.This could be confirmed with a thin section unenhanced CT. KIDNEYS/BLADDER: Normal. BOWEL: Right hemicolectomy. There is a prominent ovoid well-defined 5.0 x 3.5 cm hypodense region within the distal gastric body. This has an appearance of a large intraluminal polyp and endoscopy is recommended in further evaluation. Colonic diverticula without CT evidence for diverticulitis. LYMPH NODES: Normal. VASCULATURE: Unremarkable. PELVIC ORGANS: Small fat-containing right inguinal hernia. MUSCULOSKELETAL: Lower lumbar degenerative change. Pronounced lower lumbar facet arthropathy. Impression IMPRESSION: 1. No acute change. 2. Well-defined ovoid 5.0 x 3.5 cm hypodense region in the distal gastric body. Endoscopy is suggested in further evaluation to exclude large polyp. 3. 1.8 cm right adrenal nodule is slightly obscured by motion. This most likely represents an adenoma and a thin section unenhanced CT could confirm this. 4. Previous right hemicolectomy. Colonic diverticula without CT evidence for diverticulitis. [facility] Associated attestation - Pio Messer MD - 12/17/2019 10:59 AM CDT Physician Attestation I, Pio Messer MD, have reviewed and discussed with the advanced practice provider their discharge plan for Mat Galvan. I did not participate in a shared visit by interviewing or examining the patient and this should be billed as an advanced practice provider only discharge. Pio Messer Date of Service (when I saw the patient): I did not personally see this patient today. documented in this encounter Discharge Instructions AttachmentsThe following attachments cannot be sent through Care Everywhere.(s) Treating Hypoglycemia (Low Blood Glucose): Type 1 and Type 2 Diabetes (French) documented in this encounter Medications at Time of Discharge Medication Sig Dispensed Refills Start Date End Date acetaminophen (TYLENOL) Take 2 tablets (650 0 325 MG tabletIndications: mg) by mouth every 4 Abrasion of right knee, hours as needed for initial encounter mild pain allopurinol (ZYLOPRIM) Take 300 mg by mouth 0 300 MG tablet daily. aspirin 81 MG tablet Take 1 tablet by mouth 0 daily. atenolol (TENORMIN) 50 MG Take 50 mg by mouth 0 tablet daily. FISH OIL 0 glucose (BD GLUCOSE) 4 g Take 1 tablet by mouth 10 tablet 0 12/16/2019 chewable every hour as needed tabletIndications: for low blood sugar Hypoglycemia (For low blood sugars under 80) Please recheck your blood sugar after taking this to make sure it is coming up. lisinopril-hydrochlorothi Take 1 tablet by mouth 0 azide daily. (PRINZIDE,ZESTORETIC) 20-25 MG per tablet Omeprazole 20 MG tablet Take 20 mg by mouth 0 daily. simvastatin (ZOCOR) 40 MG Take 40 mg by mouth At 0 tablet Bedtime. thiamine (B-1) 100 MG Take 1 tablet (100 mg) 30 tablet 0 tabletIndications: by mouth daily Future Alcoholic intoxication refills by PCP without complication (H) [facility] with phone number [phone]. documented as of this encounter Progress Notes Flor Casarez RN - 12/16/2019 10:10 AM CDT Per AM care rounds there are no CM/SW needs at this time. Will complete consult. Please call if needidentified. Flor Casarez RN BSN Weight Caller Inpatient Care Coordination [facility] documented in this encounter H&P Notes Blu Buchanan MD - 12/16/2019 12:53 AM CDT [facility] Hospitalist Admission Note Name: Mat Galvan Date of : 1935 Age: [age] year old Date of admission: 12/15/2019 Primary care provider: Antonio Cummings Assessment and Plan: Mat Galvan is a 84 year old male with known history of bwc-[id number]-msjanxmsc diabetes mellitus on sulfonylurea, hypertension, CKD, gouty arthritis, regular EtOH drinker, GERD, known lung nodules and lives at home with family and reportedly was on his usual state of health but has to be brought inhere in the emergency room by EMS personnel as apparently patient had a fall event outside of his garage and sustained facial laceration and abrasions. 1. Fall event 2. EtOH intoxication 3. Suspected EtOH dependence? 4. Hypoglycemia 5. History of diabetes mellitus tcz-fvhakkl-qvozewqnx on sulfonylurea 6. Hypertension 7. CKD 8. GERD 9. Incidentally found with adrenal nodules [place] under observation. Continue to monitor her glucose levels. May have regular diet. Discontinue sulfonylurea. Likely might not be the best oral regimen for him in the setting of his CKD, regular EtOH use. Check blood sugar levels, currently not requiring dextrose containing IV fluids. Low intensity insulin sliding scale if truly needed His fall events likely secondary to his EtOH intoxication with accompanying hypoglycemia Patient has known history of lung nodules, CT imaging today showed incidental finding of right adrenal nodule and possible gastric polyp. These findings were discussed with him and family as well by emergency room service. This will need to be follow-up in an outpatient basis. Watch for EtOH withdrawals, Code status: Full code Prophylaxis: Ambulate, mechanical PCD's if staying mostly in bed Disposition: Likely in the next 12 to 24 hours Chief Complaint: Fall event Source of Information: Patient with fair reliability Discussion with ED physician Review of E chart records History of Present Illness: Mat Galvan is a 84 year old male with known history of hfw-bkzcozd-ykwysjbow diabetes mellitus on sulfonylurea, hypertension, CKD, gouty arthritis, regular EtOH drinker, GERD, known lung nodules and lives at home with family and reportedly was on his usual state of health but has to be brought inhere in the emergency room by EMS personnel as apparently patient had a fall event outside of his garage and sustained facial laceration and abrasions. Patient stated that he has been drinking whiskey that started around 5 in the afternoon and likely has consumed approximately 1 quart of it. Last oral intake was this morning and and denies any nausea,vomiting, abdominal pain, diarrhea, fevers, chills, shortness of breath, back pain, bleeding tendencies, urinary symptoms, focal weakness nor slurring of speech. Upon further evaluation the emergency room he was ruled out for obvious fractures, found with EtOH intoxication as anticipated and expected, hypoglycemia that prompted his case to be referred to us forfurther management and care hence this hospitalization During the time of my exam he is glucose levels are within acceptable levels and Edward remained conversant, pleasant, interactive and endorses no other new complaints. Past Medical History: Past Medical History: Diagnosis Date ??? Gastro-oesophageal reflux disease ??? Gout ??? Hypertension Past Surgical History: Past Surgical History: Procedure Laterality Date ??? COLONOSCOPY ??? GI SURGERY bowel resection Social History: Social History Tobacco Use ??? Smoking status: Former Smoker Substance Use Topics ??? Alcohol use: Yes Alcohol/week: 0.8 standard drinks Types: 1 drink(s) per week Family History: Family history was fully reviewed and non-contributory in this case. Allergies: No Known Allergies Medications: Prior to Admission medications Medication Sig Last Dose Taking? Auth Provider allopurinol (ZYLOPRIM) 300 MG tablet Take 300 mg by mouth daily. Reported, Patient aspirin 81 MG tablet Take 1 tablet by mouth daily. Reported, Patient atenolol (TENORMIN) 50 MG tablet Take 50 mg by mouth daily. Reported, Patient FISH OIL Reported, Patient glipiZIDE (GLUCOTROL XL) 2.5 MG 24 hr tablet Take 2.5 mg by mouth daily. Reported, Patient lisinopril-hydrochlorothiazide (PRINZIDE,ZESTORETIC) 20-25 MG per tablet Take 1 tablet by mouth daily. Reported, Patient Omeprazole 20 MG tablet Take 20 mg by mouth daily. Reported, Patient simvastatin (ZOCOR) 40 MG tablet Take 40 mg by mouth At Bedtime. Reported, Patient Review of Systems: A Comprehensive greater than 10 system review of systems was carried out. Pertinent positives and negatives are noted above. Otherwise negative for contributory information. Physical Exam: Blood pressure (!) 162/94, pulse 75, temperature 97.6 ??F (36.4 ??C), temperature source Oral, resp.rate 24, SpO2 99 %. Wt Readings from Last 1 Encounters: 02/17/11 113.4 kg (250 lb) Exam: GENERAL: No apparent distress. Awake, alert, and fully oriented. HEENT: Normocephalic, atraumatic. Extraocular movements intact. Multiple facial abrasions CARDIOVASCULAR: Regular rate and rhythm without murmurs or rubs. No JVD PULMONARY: Clear to auscultation, no wheezes, crackles ABDOMINAL: Soft, non-tender, non-distended. Bowel sounds normoactive. No hepatosplenomegaly. EXTREMITIES: No cyanosis or clubbing. No edema. Multiple skin excoriations, hematoma NEUROLOGICAL: CN 2-12 grossly intact, awake and alert x3, spontaneous and coherent speech. no focal neurological deficits. DERMATOLOGICAL: No rash Psych: not agitation, not combative, pleasant mood Data: EKG: Normal sinus rhythm at 72 bpm Imaging: Results for orders placed or performed during the hospital encounter of 12/15/19 CT Head w/o Contrast Narrative EXAM: CT HEAD W/O CONTRAST LOCATION: [facility] DATE/TIME: 12/15/2019 10:38 PM INDICATION: Head injury COMPARISON: None. TECHNIQUE: Routine without IV contrast. Multiplanar reformats. Dose reduction techniques were used. FINDINGS: INTRACRANIAL CONTENTS: No intracranial hemorrhage, extraaxial collection, or mass effect. No CT evidence of acute infarct. Mild presumed chronic small vessel ischemic changes. Moderate generalized volume loss. No hydrocephalus. VISUALIZED ORBITS/SINUSES/MASTOIDS: Borderline bilateral proptosis. Moderate mucosal thickening scattered about the paranasal sinuses. No middle ear or mastoid effusion. BONES/SOFT TISSUES: No acute abnormality. Impression IMPRESSION: 1. No acute intracranial process. CT Cervical Spine w/o Contrast Narrative EXAM: CT CERVICAL SPINE W/O CONTRAST LOCATION: [facility] DATE/TIME: 12/15/2019 10:39 PM INDICATION: Neck injury COMPARISON: None. TECHNIQUE: Routine without IV contrast. Multiplanar reformats. Dose reduction techniques were used. FINDINGS: VERTEBRA: Normal vertebral body heights and alignment. No fracture or posttraumatic subluxation. CANAL/FORAMINA: Mild to moderate degenerative changes with mild canal narrowing at C6-C7. Mild left foraminal narrowing at C3-C4, C4-C5, and C6/C7. PARASPINAL: No extraspinal abnormality. Impression IMPRESSION: 1. No definite fracture. 2. Degenerative changes, as described. CT Facial Bones without Contrast Narrative EXAM: CT FACIAL BONES WITHOUT CONTRAST LOCATION: [facility] DATE/TIME: 12/15/2019 10:39 PM INDICATION: Facial injury COMPARISON: None. TECHNIQUE: Routine without IV contrast. Multiplanar reformats. Dose reduction techniques were used. FINDINGS: OSSEOUS STRUCTURES/SOFT TISSUES: Moderate soft tissue swelling overlying right cheek. No facial bonefracture or malalignment. No evidence for dental trauma or periapical abscess. ORBITAL CONTENTS: No acute abnormality. SINUSES: Moderate mucosal thickening scattered about the paranasal sinuses. VISUALIZED INTRACRANIAL CONTENTS: No acute abnormality. Impression IMPRESSION: 1. No definite fracture. CT Chest/Abdomen/Pelvis w Contrast Narrative EXAM: CT CHEST/ABDOMEN/PELVIS W CONTRAST LOCATION: [facility] DATE/TIME: 12/15/2019 10:40 PM INDICATION: Trauma -???Chest, abdomen, and pelvis injury. Fall. Pain. COMPARISON: None. TECHNIQUE: CT scan of the chest, abdomen, and pelvis was performed following injection of IV contrast. Multiplanar reformats were obtained. Dose reduction techniques were used. CONTRAST: 100mL Isovue-370 FINDINGS: LUNGS AND PLEURA: Small esophageal hiatal hernia. MEDIASTINUM/AXILLAE: Coronary artery calcification. HEPATOBILIARY: Normal. PANCREAS: Normal. SPLEEN: Calcified granulomata. ADRENAL GLANDS: Motion artifact. 1.8 cm nodule in the right adrenal gland is most likely an adenoma.This could be confirmed with a thin section unenhanced CT. KIDNEYS/BLADDER: Normal. BOWEL: Right hemicolectomy. There is a prominent ovoid well-defined 5.0 x 3.5 cm hypodense region within the distal gastric body. This has an appearance of a large intraluminal polyp and endoscopy is recommended in further evaluation. Colonic diverticula without CT evidence for diverticulitis. LYMPH NODES: Normal. VASCULATURE: Unremarkable. PELVIC ORGANS: Small fat-containing right inguinal hernia. MUSCULOSKELETAL: Lower lumbar degenerative change. Pronounced lower lumbar facet arthropathy. Impression IMPRESSION: 1. No acute change. 2. Well-defined ovoid 5.0 x 3.5 cm hypodense region in the distal gastric body. Endoscopy is suggested in further evaluation to exclude large polyp. 3. 1.8 cm right adrenal nodule is slightly obscured by motion. This most likely represents an adenoma and a thin section unenhanced CT could confirm this. 4. Previous right hemicolectomy. Colonic diverticula without CT evidence for diverticulitis. Labs: No results for input(s): CULT in the last 168 hours. Recent Labs Lab 12/15/192215 WBC 7.9 HGB 12.6* HCT 38.7* MCV 104* PLT 143* Recent Labs Lab 12/15/19 2218 12/15/19 221 NA -- 133 POTASSIUM -- 3.5 CHLORIDE -- 100 CO2 -- 27 ANIONGAP -- 6 GLC -- 56* BUN -- 23 CR -- 1.54* GFRESTIMATED 36* 41* GFRESTBLACK 44* 47* ANAND -- 7.8* PROTTOTAL -- 6.7* ALBUMIN -- 3.6 BILITOTAL -- 0.3 ALKPHOS -- 66 AST -- 58* ALT -- 50 Recent Labs Lab 12/15/19 2314 12/15/19 2229 12/15/19 2216 12/15/19 2202 GLC -- -- 56* -- BGM 85 89 -- 61* Recent Labs Lab 12/15/19 2216 INR 1.00 No results for input(s): LIPASE in the last 168 hours. Recent Labs Lab 12/15/192215 TROPI <0.015 Recent Labs Lab 12/16/19 0007 COLOR Straw APPEARANCE Clear URINEGLC Negative URINEBILI Negative URINEKETONE Negative SG 1.012 UBLD Negative URINEPH 5.0 PROTEIN Negative NITRITE Negative LEUKEST Negative RBCU 0 WBCU 1 documented in this encounter ED Notes Tyler Ascecnio RN - 12/16/2019 12:10 AM CDT [facility] ED Nurse Handoff Report Mat Galvan is a 84 year old male ED Chief complaint: Fall . ED Diagnosis: Final diagnoses: Abrasion of face, initial encounter Alcoholic intoxication without complication (H) Hypoglycemia Allergies: No Known Allergies Code Status: Full Code Activity level - Baseline/Home: Independent. Activity Level - Current: Assist X 1. Lift room needed:No. Bariatric: No Corporate Events Director Needed: No Isolation: No. Infection: Not Applicable. Vital Signs: Vitals: 12/15/19 2157 12/15/19 2200 12/15/19 2320 BP: (!) 165/77 (!) 165/77 Pulse: 77 Resp: Temp: 97.6 ??F (36.4 ??C) TempSrc: Oral SpO2: 98% Cardiac Rhythm: , Pain level: Patient confused: No. Patient Falls Risk: Yes. Elimination Status: Has voided Patient Report - Initial Complaint: Fall. Focused Assessment: Pt was found by at the bottom of the stairs in the garage and appears to have fallen onto his face. Pt was known to have been drinkingalcohol, unknown amount of intake. Blood all over face noted upon EMS arrival. C-spines maintained by EMS. Alert to self, unable to remember what happened. Pt is combative and confused upon arrival. ABCs intact. Tests Performed: labs, ekg, CT head, neck, Chest, abdomen. Abnormal Results: Labs Ordered and Resulted from Time of ED Arrival Up to the Time of Departure from the ED CBC WITH PLATELETS DIFFERENTIAL - Abnormal; Notable for the following components: Result Value RBC Count 3.73 (*) Hemoglobin 12.6 (*) Hematocrit 38.7 (*) MCV 104 (*) MCH 33.8 (*) Platelet Count 143 (*) All other components within normal limits COMPREHENSIVE METABOLIC PANEL - Abnormal; Notable for the following components: Glucose 56 (*) Creatinine 1.54 (*) GFR Estimate 41 (*) GFR Estimate If Black 47 (*) Calcium 7.8 (*) Protein Total 6.7 (*) AST 58 (*) All other components within normal limits ALCOHOL ETHYL - Abnormal; Notable for the following components: Ethanol g/dL 0.18 (*) All other components within normal limits GLUCOSE BY METER - Abnormal; Notable for the following components: Glucose 61 (*) All other components within normal limits CREATININE POCT - Abnormal; Notable for the following components: Creatinine 1.8 (*) GFR Estimate 36 (*) GFR Estimate If Black 44 (*) All other components within normal limits INR PARTIAL THROMBOPLASTIN TIME CK TOTAL GLUCOSE MONITOR NURSING POCT TROPONIN I GLUCOSE BY METER GLUCOSE MONITOR NURSING POCT GLUCOSE BY METER ROUTINE UA WITH MICROSCOPIC COVID-19 VIRUS (CORONAVIRUS) BY PCR RODRIGO COMA SCALE (GCS) ASSESSMENT PULSE OXIMETRY NURSING PERIPHERAL IV CATHETER IV ACCESS ABO/RH TYPE AND SCREEN CT Cervical Spine w/o Contrast Final Result IMPRESSION: 1. No definite fracture. 2. Degenerative changes, as described. CT Facial Bones without Contrast Final Result IMPRESSION: 1. No definite fracture. CT Head w/o Contrast Final Result IMPRESSION: 1. No acute intracranial process. CT Chest/Abdomen/Pelvis w Contrast Final Result IMPRESSION: 1. No acute change. 2. Well-defined ovoid 5.0 x 3.5 cm hypodense region in the distal gastric body. Endoscopy is suggested in further evaluation to exclude large polyp. 3. 1.8 cm right adrenal nodule is slightly obscured by motion. This most likely represents an adenoma and a thin section unenhanced CT could confirm this. 4. Previous right hemicolectomy. Colonic diverticula without CT evidence for diverticulitis. . Treatments provided: C-spines maintained until r/o, tylenol Family Comments: daughter at bedside OBS brochure/video discussed/provided to patient: Yes ED Medications: Medications acetaminophen (TYLENOL) tablet 1,000 mg (has no administration in time range) dextrose 50 % injection 50 mL (50 mLs Intravenous Given 12/15/192210) 0.9% sodium chloride BOLUS (65 mLs Intravenous New Bag 12/15/192253) iopamidol (ISOVUE-370) solution 500 mL (100 mLs Intravenous Given 12/15/192253) Drips infusing: No For the majority of the shift, the patient's behavior Green. Interventions performed were NA. Sepsis treatment initiated: No ED Nurse Name/Phone Number: Sil Chan RN, 12:10 AM RECEIVING UNIT ED HANDOFF REVIEW Above ED Nurse Handoff Report was reviewed: Yes Reviewed by: Tyler Ascencio RN on December 16, 2019 at 12:38 AM Sil Chan RN - 12/15/2019 10:00 PM CDT Pt was found by at the bottom of the stairs in the garage and appears to have fallen onto his face. Pt was known to have been drinking alcohol, unknown amount of intake. Blood all over face noted upon EMS arrival. C-spines maintained by EMS. Alert to self, unable to remember what happened. Pt is c ombative and confused upon arrival. ABCs intact. Brice Altman RN - 12/15/2019 9:59 PM CDT Bed: [id number] Expected date: 12/15/19 Expected time: 9:29 PM Means of arrival: Ambulance Comments: [id number] Kylie Barboza DO - 12/15/2019 9:59 PM CDT History Chief Complaint: Fall The history is provided by the patient and the EMS personnel. History limited by: alcohol intoxication. Mat Galvan is a 84 year old male with a history of hypertension, type II diabetes, gout, who presents after a fall via EMS. Per EMS report, the patient was found on the ground outside of his garage by his ashlee with noted facial laceration and abrasions. The patient's is reportedly very demented and was not able to provide details to the fall. He arrives with a c- collar in place. EMS did not obtain blood sugar en route. Here, the patient states that he is unsure how much he exactly drank tonight but estimates it was around a quart. He notes that he drinks 3-4 whiskey drinks nightly starting at 1700. He denies any current pain or drug use. The patient denies blood thinner use besides a baby aspirin daily. Allergies: No known drug allergies. Medications: Zocor Allopurinol Aspirin atenolol Glipizide lisinopril-hydrochlorothiazide Omeprazole simvastatin Past Medical History: GERD Gout Hypertension DAQUAN Obesity Type II diabetes Lung nodule Past Surgical History: Colonoscopy Bowel resection Family History: Family history reviewed. No pertinent family history. Social History: The patient was accompanied to the ED by EMS. Smoking Status: Former Smoker Smokeless Tobacco: Never Used Alcohol Use: Positive Drug Use: Negative PCP: Antonio Cummings Marital Status: Review of Systems Constitutional: Negative for fever. Denies pain Respiratory: Negative for shortness of breath. Cardiovascular: Negative for chest pain. Gastrointestinal: Negative for abdominal pain. Skin: Positive for wound. All other systems reviewed and are negative. Physical Exam Patient Vitals for the past 24 hrs: BP Temp Temp src Pulse Heart Rate Resp SpO2 12/15/19 2320 -- -- -- -- 78 26 98 % 12/15/19 2200 (!) 165/77 -- -- 77 -- 20 -- 12/15/19 2157 (!) 165 97.6 ??F (36.4 ??C) Oral -- -- -- -- Physical Exam General: Alert. C-collar in place Head: The face covered in dried blood; 3cm skin abrasion to R. face Eyes: Sclera white; Pupils are equal and round ENT: External ears normal. No hemotympanum. External nares normal. No septal hematoma. Bruising and abrasion noted to R. Upper lip Neck: No midline tenderness or pain with full ROM. CV: Rate as above with regular rhythm No murmur 2/2 radial and dorsal pedal pulses Resp: Breath sounds clear and equal bilaterally Non-labored, no retractions or accessory muscle use GI: Abdomen soft, non-tender, non-distended No rebound tenderness or guarding MSK: No midline tenderness or bony step-off No deformity Moves all extremities equally and symmetrically; abrasion to R. Knee though full ROM knee flexion/extension; abrasion to R. Palm; ecchymosis to RLQ Skin: No rash or lesions noted. Neuro: No apparent deficit. Strength 5/5 x4. Sensation intact x4. GCS: 15 Psych: Blunt affect bruising to right abdomen Emergency Department Course ECG: ECG taken at 2211, ECG read at 2211 Normal sinus rhythm Normal ECG Rate 72 bpm. TN interval 148 ms. QRS duration 108 ms. QT/QTc 416/455 ms. P-R-T axes 22 63 45. Imaging: Radiology findings were communicated with the patient who voiced understanding of the findings. CT Cervical Spine w/o Contrast 1. No definite fracture. 2. Degenerative changes, as described. CT Facial Bones without Contrast 1. No definite fracture. Reading per radiology CT Head w/o Contrast 1. No acute intracranial process. Reading per radiology CT Chest/Abdomen/Pelvis w Contrast 1. No acute change. 2. Well-defined ovoid 5.0 x 3.5 cm hypodense region in the distal gastric body. Endoscopy is suggested in further evaluation to exclude large polyp. 3. 1.8 cm right adrenal nodule is slightly obscured by motion. This most likely represents an adenoma and a thin section unenhanced CT could confirm this. 4. Previous right hemicolectomy. Colonic diverticula without CT evidence for diverticulitis. Reading per radiology Laboratory: Laboratory findings were communicated with the patient who voiced understanding of the findings. Asymptomatic COVID-19 Virus (Coronavirus) by PCR Nasopharyngeal swab: Pending UA: Ordered/Pending CBC: WBC 7.9, HGB 12.6 (L), PLT 143 (L) CMP: Glucose 56 (L), GFR 41 (L), Calcium 7.8 (L), Protein Total 6.7 (L), AST 58 (H), o/w WNL (Creatinine 1.54 (H)) Troponin (Collected 2215): <0.015 INR: 1.00 Partial Thromboplastin Time: 26 CK Total: 149 Creatinine POCT: Creatinine 1.8 (H), GFR 36 (L) Glucose by meter 2202: 61 (L) Glucose by meter 2216: 56 (L) Glucose by meter 2229: 89 Glucose by meter 2314: 85 Alcohol Ethyl: 0.18 (H) ABO/Rh Type and Screen: A positive, antibody negative [facility] Procedure Note FAST (Focused Assessment with Sonography for Trauma): PROCEDURE: PERFORMED BY: Dr. Kylie Barboza DO INDICATIONS/SYMPTOM: Trauma PROBE: Low frequency convex probe BODY LOCATION: The ultrasound was performed in the abdominal and subxiphoid areas. FINDINGS: No evidence of free fluid in hepatorenal (Morison's pouch), perisplenic, or and pelvic areas. No evidence of pericardial effusion. INTERPRETATION: The FAST exam was normal. There was no free fluid present. There was no pericardial effusion. IMAGE DOCUMENTATION: Images were archived to PACs system. Interventions: Medications dextrose 50 % injection 50 mL (50 mLs Intravenous Given 8/17/20 2211) 0.9% sodium chloride BOLUS (65 mLs Intravenous New Bag 12/15/192253) iopamidol (ISOVUE-370) solution 500 mL (100 mLs Intravenous Given 12/15/192253) acetaminophen (TYLENOL) tablet 1,000 mg (1,000 mg Oral Given 12/16/1915) Emergency Department Course: 2147 Nursing notes and vitals reviewed. I performed an exam of the patient as documented above. 2157 FAST exam performed. 2210 EKG obtained as noted above. 221 IV was inserted and blood was drawn for laboratory testing, results above. 2218 Blood drawn. This was sent to the lab for further testing, results above. 2229 Blood drawn. This was sent to the lab for further testing, results above. 2239 The patient was sent for a CT while in the emergency department, results above. 2255 The patient was sent for a XR while in the emergency department, results above. 2314 Blood drawn. This was sent to the lab for further testing, results above. 0010 I called the patient's daughter, Pio, regarding the patient's plan of care. [address] Buchanan of the hospitalist service from [facility] regarding patient's presentation, findings, and plan of care. A COVID-19 nasal swab PCR test was obtained for laboratory testing as documented above. Prior to admission, I personally reviewed the results with the patient and all related questions were answered. The patient verbalized understanding and is amenable to plan. Impression & Plan Medical Decision Making: Mat Galvan is a 84 year old male who presents to the emergency department today for evaluation of fall. Patient underwent extensive workup during his time in the ED. He was noted to to be hypoglycemic on arrival and did receive an amp of D50. He did not have recurrent episodes of hypoglycemia during his time in the ED. Review of records does show a history of glipizide. He is acutely intoxicatedtoday and noted to have renal insufficiency. He is noted to have multiple abrasions though fortunately no evidence of intracranial process. Cervical spine cleared. Incidental finding of gastric body lesion identified as well as adrenal nodule discussed with patient and his daughter. I do suspect patient's fall was more mechanical, he denied any prodromal symptoms. In light of his hypoglycemia and history of glipizide I do feel that he would benefit from close glucose monitoring at this time to ensure no evidence of sulfonylurea induced hypoglycemia. He was accepted by hospitalist for admission. Covid-19 Mat Galvan was evaluated during a global COVID-19 pandemic, which necessitated consideration that the patient might be at risk for infection with the SARS-CoV-2 virus that causes COVID-19. Applicable protocols for evaluation were followed during the patient's care. COVID-19 was considered as part of the patient's evaluation. The plan for testing is: a test was obtained during this visit. Diagnosis: ICD-10-CM 1. Abrasion of face, initial encounter S00.81XA UA with Microscopic 2. Alcoholic intoxication without complication (H) F10.920 3. Hypoglycemia E16.2 4. Adrenal nodule (H) E27.[address] of the abdomen R93.5 gastric body ovoid lesion 6. Abrasion of right knee, initial encounter S80.211A Disposition: The patient is admitted into the care of Dr. Buchanan. Scribe Disclosure: Dana Bridges, am serving as a scribe at 10:00 PM on 12/15/2019 to document services personally performed by Kylie Barboza DO based on my observations and the provider's statements to me. [facility] EMERGENCY DEPARTMENT Kylie Barboza DO 12/16/19 0041 documented in this encounter Miscellaneous Notes Plan of Care - Pooja Norris RN - 12/16/2019 10:34 AM CDT OBSERVATION patient END time: 1034 Pt daughter picking pt up in front of hospital and he was brought down to her in wheelchair. Did go over discharge info with daughter on phone and pt signed papers. Pt ate good breakfast and blood sugar went up to 112 after eating. Ready for discharge. Plan of Care - Pooja Norris RN - 12/16/2019 7:55 AM CDT PRIMARY DIAGNOSIS: ACUTE PAIN/FALL OUTPATIENT/OBSERVATION GOALS TO BE MET BEFORE DISCHARGE: 1. Pain Status: Improved with use of alternative comfort measures i.e.: positioning, c/o right rib cage pain from fall but better when moving. 2. Return to near baseline physical activity: Yes 3. Cleared for discharge by consultants (if involved): No Web Press Operator Helper Offset Nurse Safe discharge environment identified: No Barriers to discharge: Yes, lives at home with who has dementia. Entered by: Pooja Norris 12/16/2019 7:56 AM Please review provider order for any additional goals. Nurse to notify provider when observation goals have been met and patient is ready for discharge. Plan of Care - Tyler Ascencio RN - 12/16/2019 4:10 AM CDT PRIMARY DIAGNOSIS: FALL OUTPATIENT/OBSERVATION GOALS TO BE MET BEFORE DISCHARGE: ADLs back to baseline: Yes Activity and level of assistance: Up with standby assistance. Pain status: Pain free. Return to near baseline physical activity: Yes Web Press Operator Helper Offset Nurse Safe discharge environment identified: Yes Barriers to discharge: Yes- CIWA scores, blood sugars Entered by: Tyler Ascencio 12/16/2019 4:11 AM Please review provider order for any additional goals. Nurse to notify provider when observation goals have been met and patient is ready for discharge. Plan of Care - Tyler Ascencio RN - 12/16/2019 1:07 AM CDT PRIMARY DIAGNOSIS: FALL OUTPATIENT/OBSERVATION GOALS TO BE MET BEFORE DISCHARGE: ADLs back to baseline: Yes Activity and level of assistance: Up with standby assistance. Pain status: Pain free. Return to near baseline physical activity: Yes Web Press Operator Helper Offset Nurse Safe discharge environment identified: Yes Barriers to discharge: Yes Entered by: Tyler Ascencio 12/16/2019 1:07 AM Please review provider order for any additional goals. Nurse to notify provider when observation goals have been met and patient is ready for discharge. Plan of Care - Tyler Ascencio RN - 12/16/2019 1:05 AM CDT ROOM #215 Living Situation (if not independent, order SW consult): ind w/ Facility name:N/A salesperson toy trains and accessories: javi Mendoza Activity level at baseline: ind Activity level on admit: SBA Patient registered to observation; given Patient Bill of Rights; given the opportunity to ask questions about observation status and their plan of care. Patient has been oriented to the observation room, bathroom and call light is in place. Discussed discharge goals and expectations with patient/family. documented in this encounter Plan of Treatment Scheduled Referrals Name Type Priority Associated Diagnoses Order S chedule Gastroenterology Peds Referral Routine Mucosal abnormality of Ordered: Referral +/- Procedure stomach 12/15 documented as of this encounter Procedures Procedure Name Priority Date/Time Associated Comments Diagnosis GLUCOSE BY METER Routine 12/16/2019 9:13 AM Abrasion of face, Results for this CDT initial encounter procedure are in the results section. GLUCOSE BY METER Routine 12/16/2019 8:20 AM Abrasion of face, Results for this CDT initial encounter procedure are in the results section. BASIC METABOLIC PANEL Routine 12/16/2019 8:04 AM Abrasion of f kelly, Results for this CDT initial encounter procedure are in the results section. GLUCOSE BY METER Routine 12/16/2019 1:36 AM Abrasion of face, Results for this CDT initial encounter procedure are in the results section. GLUCOSE BY METER Routine 12/16/2019 1:14 AM Abrasion of face, Results for this CDT initial encounter procedure are in the results section. COVID-19 VIRUS STAT 12/16/2019 12:19 Abrasion of face, Resu lts for this (CORONAVIRUS) BY PCR AM CDT initial encounter pr ocedure are in the results section. ROUTINE UA WITH STAT 12/16/2019 12:07 Abrasion of face, Res ults for this MICROSCOPIC AM CDT initial encounter procedure are in the results section. CT CERVICAL SPINE W/O STAT 12/15/2019 11:22 Re sults for this CONTRAST PM CDT procedure are i n the results section. CT FACIAL BONES WITHOUT STAT 12/15/2019 11:20 Results for this CONTRAST PM CDT procedure are i n the results section. CT HEAD W/O CONTRAST STAT 12/15/2019 11:18 Res ults for this PM CDT procedure are i n the results section. CT CHEST/ABDOMEN/PELVIS STAT 12/15/2019 11:17 Results for this W CONTRAST PM CDT procedure are i n the results section. GLUCOSE BY METER Routine 12/15/2019 11:14 Results for this PM CDT procedure are i n the results section. GLUCOSE BY METER Routine 12/15/2019 10:29 Results for this PM CDT procedure are i n the results section. ISTAT CREATININE POCT Routine 12/15/2019 10:18 Re sults for this PM CDT procedure are i n the results section. ABO/RH TYPE AND SCREEN STAT 12/15/2019 10:17 R esults for this PM CDT procedure are i n the results section. CBC WITH PLATELETS & STAT 12/15/2019 10:16 Res ults for this DIFFERENTIAL PM CDT procedure are i n the results section. TROPONIN I STAT 12/15/2019 10:16 Results for this PM CDT procedure are i n the results section. INR STAT 12/15/2019 10:16 Results for this PM CDT procedure are i n the results section. PARTIAL THROMBOPLASTIN STAT 12/15/2019 10:16 R esults for this TIME PM CDT procedure are i n the results section. HEMOGLOBIN A1C Routine 12/15/2019 10:16 Abrasion of face, Resu lts for this PM CDT initial encounter procedure are in the results section. COMPREHENSIVE METABOLIC STAT 12/15/2019 10:16 Results for this PANEL PM CDT procedure are i n the results section. CK TOTAL STAT 12/15/2019 10:16 Results for this PM CDT procedure are i n the results section. ETHYL ALCOHOL LEVEL STAT 12/15/2019 10:16 Resu lts for this PM CDT procedure are i n the results section. EKG 12-LEAD, TRACING STAT 12/15/2019 10:11 Res ults for this ONLY PM CDT procedure are i n the results section. GLUCOSE BY METER Routine 12/15/2019 10:02 Results for this PM CDT procedure are i n the results section. documented in this encounter Results (ABNORMAL) Glucose by meter (12/16/2019 9:13 AM CDT) P athologist Signature Glucose 112 (H) 70 - 99 12/16/2019 POINT OF CARE mg/dL 9:21 AM CDT TEST, GLUCOSE Specimen Anatomical Collection Method Collection Time Receive d Time (Source) Location / / Volume Laterality 12/16/2019 9:13 AM 0 9:20 CDT AM CDT Kylie Barboza DO LAB - BEAKER POCT Performing Organization Address City/State/[facility] Phon e Number FV POINT OF CARE TEST, GLUCOSE POINT OF CARE TEST, GLUCOSE (ABNORMAL) Glucose by meter (12/16/2019 8:20 AM CDT) athologist Signature Glucose 54 (L) 70 - 99 12/16/2019 POINT OF CARE mg/dL 8:28 AM CDT TEST, GLUCOSE Specimen Anatomical Collection Method Collection Time Receive d Time (Source) Location / / Volume Laterality 12/16/2019 8:20 AM 0 8:28 CDT AM CDT Kylie Barboza DO LAB - BEBAUTISTA POCT Performing Organization Address City/[facility] Phon e Number [facility] POINT OF CARE TEST, GLUCOSE POINT OF CARE TEST, GLUCOSE (ABNORMAL) Basic metabolic panel (12/16/2019 8:04 AM CDT) Analysis Performed At Patho logist Time Signature Sodium 135 133 - 144 12/16/2019 [facility] mmol/L 8:22 AM [facility] Potassium 4.1 3.4 - 5.3 12/16/2019 [facility] mmol/L 8:22 AM [facility] Chloride 104 94 - 109 12/16/2019 [facility] mmol/L 8:22 AM [facility] Carbon Dioxide 27 20 - 32 12/16/2019 [facility] [facility] mmol/L 8:28 AM [facility] Anion Gap 4 3 - 14 12/16/2019 [facility] mmol/L 8:28 AM [facility] Glucose 67 (L) 70 - 99 12/16/2019 [facility] mg/dL 8:28 AM [facility] Urea Nitrogen 21 7 - 30 12/16/2019 [facility] mg/dL 8:28 AM [facility] Creatinine 1.44 (H) 0.66 - 12/16/2019 [place] 1.25 mg/dL 8:28 AM [facility] GFR Estimate 44 (L) >60 12/16/2019 [place] mL/min/{1. 8:28 AM [facility] 73_m2} [facility]OSPITAL Comment: Non GFR Calc Starting 04/16/2018, serum creatinine ba sed estimated GFR (eGFR) will be calculated using the Chronic Kidney Dise [facility] Epidemiology Collaboration (CKD-EPI) equation. GFR Estimate If 51 (L) >60 mL/min/{1.73_m2} 12/16/2019 8: [address] [facility] Comment: GFR Calc Starting 04/16/2018, serum creatinine ba sed estimated GFR (eGFR) will be calculated using the Chronic Kidney Dise [facility] Epidemiology Collaboration (CKD-EPI) equation. Calcium 8.0 (L) 8.5 - 10.1 mg/dL 12/16/2019 8:28 AM [facility] Specimen Anatomical Collection Method Collection Time Receive d Time (Source) Location / / Volume Laterality Blood specimen 12/16/2019 8:04 AM 020 8:05 (specimen) CDT AM CDT Ivelisse Purvis PA-C LAB - BLOOD ORDERABLES Performing Organization Address City/State/ZIP Code Phon e Number [place] [address] [phone] (ABNORMAL) Glucose by meter (12/16/2019 1:36 AM CDT) P athologist Signature Glucose 170 (H) 70 - 99 12/16/2019 [facility] mg/dL 1:42 AM CDT TEST, GLUCOSE Specimen Anatomical Collection Method Collection Time Receive d Time (Source) Location / / Volume Laterality 12/16/2019 1:36 AM 0 1:42 CDT AM CDT Kylie Barboza DO LAB - BEAKER POCT Performing Organization Address City/State/ZIP Code Phon e Number FV POINT OF CARE TEST, GLUCOSE POINT OF CARE TEST, GLUCOSE (ABNORMAL) Glucose by meter (12/16/2019 1:14 AM CDT) P athologist Signature Glucose 69 (L) 70 - 99 12/16/2019 [facility] mg/dL 1:21 AM CDT TEST, GLUCOSE Specimen Anatomical Collection Method Collection Time Receive d Time (Source) Location / / Volume Laterality 12/16/2019 1:14 AM 0 1:21 CDT AM CDT Kylie Barboza DO [place] - BEAKER POCT Performing Organization Address City/State/ZIP Code Phon e Number [facility] POINT OF CARE TEST, GLUCOSE POINT OF CARE TEST, GLUCOSE Asymptomatic COVID-19 Virus (Coronavirus) by PCR (12/16/2019 12:19 AM CDT) Patholo gist Method Time Signature COVID-19 Nasopharyngeal 12/16/2019 [place] Virus PCR to 12:19 AM [facility] Source COVID-19 Not Detected 12/17/2019 [facility] Virus PCR to 11:10 AM [facility] GENOMICS Result CENTER LABORATORY Comment: Collection of multiple specimens from th e same patient may be necessary to detect the virus. The possibility of a f alse negative should be considered if the patient's recent exposure or clinica l presentation suggests 2019 nCOV infection and diagnostic tests for other causes of illness are negative. Repeat testing may be considered in this setting. Viral RNA was extracted via a validated method and subsequently underwent single step reverse transcriptase-real t malika polymerase chain reaction using primers to the CDC specified N1,N2 gene targets of CoV2 and human [employer] as an internal control. A negative result does not rule out the presence of real-time PCR inhibitors in the specimen or COVID-19 RNA in liela ntrations below the limit of detection of the assay. The possibility of a fals e negative should be considered if the patients recent exposure or clinical pr esentation suggests COVID-19. Additional testing or repeat testing req uires consultation with the laboratory. Nasopharyngeal specimen is the preferred choice for swab-based SARS CoV2 testing. When collection of a nasopharyn geal swab is not possible the following are acceptable alternatives: an oropharyngeal (OP) specimen collected by a healthcare professional, or a nasal mid-turbinate (NMT) swab collected by a healthcare professional or by onsite self-collection (using a flocked tapered swab), or an anterior nares specimen collected by a healthcare profe ssional or by onsite self-collection (using a round foam swab). (Centers for Disease Control) Testing performed by [facility], Room 1-210, [address] [place] [id number]. T his test was developed and its performance characteristics determined b y the [facility]. It has not been cleared or appr rosie by the FDA. The laboratory is regulated under the Cl inical Laboratory Improvement Amendments of 1988 (CLIA-88) as qualifie d to perform high-complexity testing. This test is used for clinical purposes. It should not be regarded as investigational or for research. Specimen (Source) Anatomical Collection Method Collection Time Re ceived Time Location / / Volume Laterality Specimen from 12/16/2019 12:19 12/16/2019 nasopharyngeal AM CDT 12:43 AM CDT structure (specimen) Kylie Barboza DO LAB - MICRO GENERAL ORDERABL ES Performing Organization Address City/State/[place] [address] [facility] Room: 1-210 LABORATORY [facility] [address] [phone] (ABNORMAL) UA with Microscopic (12/16/2019 12:07 AM CDT) [facility] Method Time Signature Color Urine Straw 12/16/2019 [place] 12:22 AM [facility] Appearance Urine Clear 12/16/2019 [place] 12:22 AM [facility] Glucose Urine Negative NEG^Negat 12/16/2019 [place] gianna mg/dL 12:22 [facility] Bilirubin Urine Negative NEG^Negat 12/16/2019 [place] gianna 12:22 [facility] Ketones Urine Negative NEG^Negat 12/16/2019 [place] gianna mg/dL 12:22 [facility] Specific Adams 1.012 1.003 - 12/16/2019 [place] Urine 1.035 12:22 [facility] Blood Urine Negative NEG^Negat 12/16/2019 [place] gianna 12:22 AM [facility] pH Urine 5.0 5.0 - 7.0 12/16/2019 [place] pH 12:22 AM [facility] Protein Albumin Negative NEG^Negat 12/16/2019 [place] Urine gianna mg/dL 12:22 AM [facility] Urobilinogen Normal 0.0 - 2.0 12/16/2019 [place] mg/dL mg/dL 12:22 AM [facility] Nitrite Urine Negative NEG^Negat 12/16/2019 [place] gianna 12:22 AM [facility] Leukocyte Negative NEG^Negat 12/16/2019 [facility] [facility] Esterase Urine gianna 12:22 AM [facility] Source Midstream 12/16/2019 [place] Urine 12:07 AM [facility] WBC Urine 1 0 - 5 12/16/2019 [place] /HPF 12:22 [facility] RBC Urine 0 0 - 2 12/16[facility] [facility] Mucous Urine Present (A) NEG^Negat 12/16/2019 [place] gianna /LPF 12:22 [facility] Specimen (Source) Anatomical Collection Method Collection Time Re ceived Time Location / / Volume Laterality Examination of URINE SPECIMEN 12/16/2019 12:07 020 midstream urine OBTAINED BY CLEAN AM CDT 12:13 A M CDT specimen CATCH PROCEDURE / (procedure) Unknown Kylie Barboza DO LAB - URINE ORDERABLES Performing Organization Address City/State/ZIP Code Phon e Number [place] [address] [address] [place] [address] [place] [address] [address] [place] [phone] CT Cervical Spine w/o Contrast (12/15/2019 11:22 PM CDT) Anatomical Region Laterality Modality Spine, SUBRAD CT NEURO, SUBRAD CT NEURO, UMP CT SPINE, Computed Tomography RAD CT Specimen (Source) Anatomical Collection Method Collection Time Re ceived Time Location / / Volume Laterality 12/15/2019 10:39 PM CDT Impressions 12/15/2019 11:48 PM CDT IMPRESSION: 1. ??No definite fracture. 2. ??Degenerative changes, as described. Narrative 12/15/2019 11:48 PM CDT EXAM: CT CERVICAL SPINE W/O CONTRAST LOCATION: [facility] DATE/TIME: 12/15/2019 10:39 PM INDICATION: Neck injury COMPARISON: None. TECHNIQUE: Routine without IV contrast. Multiplanar reformats. Dose reduction techniques were used. FINDINGS: VERTEBRA: Normal vertebral body heights and alignment. No fracture or posttraumatic subluxation. CANAL/FORAMINA: Mild to moderate degener ative changes with mild canal narrowing at C6-C7. Mild left foraminal narrowing at C3-C4, C4-C5, and C6/C7. PARASPINAL: No extraspinal abnormality. Procedure Note Rickey Sung MD - 12/15/2019Forma tting of this note might be different from the original. EXAM: CT CERVICAL SPINE W/O CONTRAST LOCATION: [facility] DATE/TIME: 12/15/2019 10:39 PM INDICATION: Neck injury COMPARISON: None. TECHNIQUE: Routine without IV contrast. Multiplanar reformats. Dose reduction techniques were used. FINDINGS: VERTEBRA: Normal vertebral body heights and alignment. No fracture or posttraumatic subluxation. CANAL/FORAMINA: Mild to moderate degener ative changes with mild canal narrowing at C6-C7. Mild left foraminal narrowing at C3-C4, C4-C5, and C6/C7. PARASPINAL: No extraspinal abnormality. IMPRESSION: 1. No definite fracture. 2. Degenerative changes, as described. Kylie Barboza DO Tori CT ORDERABLES CT Facial Bones without Contrast (12/15/2019 11:20 PM CDT) Anatomical Region Laterality Modality Head, SUBRAD CT NEURO, UMP CT NEURO, RAD CT Computed Tomography Specimen (Source) Anatomical Collection Method Collection Time Re ceived Time Location / / Volume Laterality 12/15/2019 10:39 PM CDT Impressions 12/15/2019 11:42 PM CDT IMPRESSION: 1. ??No definite fracture. Narrative 12/15/2019 11:42 PM CDT EXAM: CT FACIAL BONES WITHOUT CONTRAST LOCATION: [facility] DATE/TIME: 12/15/2019 10:39 PM INDICATION: Facial injury COMPARISON: None. TECHNIQUE: Routine without IV contrast. Multiplanar reformats. Dose reduction techniques were used. FINDINGS: OSSEOUS STRUCTURES/SOFT TISSUES: Moderat e soft tissue swelling overlying right cheek. No facial bone fracture or malalignment. No evidence for dental trauma or periapical abscess. ORBITAL CONTENTS: No acute abnormality. SINUSES: Moderate mucosal thickening sca ttered about the paranasal sinuses. VISUALIZED INTRACRANIAL CONTENTS: No acu te abnormality. Procedure Note Rickey Sung MD - 12/15/2019Forma tting of this note might be different from the original. EXAM: CT FACIAL BONES WITHOUT CONTRAST LOCATION: [facility] DATE/TIME: 12/15/2019 10:39 PM INDICATION: Facial injury COMPARISON: None. TECHNIQUE: Routine without IV contrast. Multiplanar reformats. Dose reduction techniques were used. FINDINGS: OSSEOUS STRUCTURES/SOFT TISSUES: Moderat e soft tissue swelling overlying right cheek. No facial bone fracture or malalignment. No evidence for dental trauma or periapical abscess. ORBITAL CONTENTS: No acute abnormality. SINUSES: Moderate mucosal thickening sca ttered about the paranasal sinuses. VISUALIZED INTRACRANIAL CONTENTS: No acu te abnormality. IMPRESSION: 1. No definite fracture. Kylie Barboza DO G CT ORDERABLES CT Head w/o Contrast (12/15/2019 11:18 PM CDT) Anatomical Region Laterality Modality Head, SUBRAD CT NEURO, SUBRAD CT NEURO, UMP CT NEURO, Computed Tomography RAD CT Specimen (Source) Anatomical Collection Method Collection Time Re ceived Time Location / / Volume Laterality 12/15/2019 10:38 PM CDT Impressions 12/15/2019 11:29 PM CDT IMPRESSION: 1. ??No acute intracranial process. Narrative 12/15/2019 11:29 PM CDT EXAM: CT HEAD W/O CONTRAST LOCATION: [facility] DATE/TIME: 12/15/2019 10:38 PM INDICATION: Head injury COMPARISON: None. TECHNIQUE: Routine without IV contrast. Multiplanar reformats. Dose reduction techniques were used. FINDINGS: INTRACRANIAL CONTENTS: No intracranial h emorrhage, extraaxial collection, or mass effect. ??No CT evidence of acute infarct. Mild presumed chronic small vessel ischemic changes. Moderate generalized volume loss. No hydrocephalus. VISUALIZED ORBITS/SINUSES/MASTOIDS: Bord jessica bilateral proptosis. Moderate mucosal thickening scattered about the paranasal sinuses. No middle ear or mastoid effusion. BONES/SOFT TISSUES: No acute abnormality . Procedure Note Rickey Sung MD - 12/15/2019Forma tting of this note might be different from the original. EXAM: CT HEAD W/O CONTRAST LOCATION: [facility] DATE/TIME: 12/15/2019 10:38 PM INDICATION: Head injury COMPARISON: None. TECHNIQUE: Routine without IV contrast. Multiplanar reformats. Dose reduction techniques were used. FINDINGS: INTRACRANIAL CONTENTS: No intracranial h emorrhage, extraaxial collection, or mass effect. No CT evidence of acute infarct. Mild presumed chronic small vessel ischemic changes. Moderate generalized volume loss. No hydrocephalus. VISUALIZED ORBITS/SINUSES/MASTOIDS: Bord jessica bilateral proptosis. Moderate mucosal thickening scattered about the paranasal sinuses. No middle ear or mastoid effusion. BONES/SOFT TISSUES: No acute abnormality . IMPRESSION: 1. No acute intracranial process. Kylie Barboza DO G CT ORDERABLES CT Chest/Abdomen/Pelvis w Contrast (12/15/2019 11:17 PM CDT) Anatomical Region Laterality Modality Abdomen/Pelvis, Chest, SUBRAD CT BODY, UMP CT CHEST, Computed Tomography UMP CT ABDOMEN PELVIS, RAD CT Specimen (Source) Anatomical Collection Method Collection Time Re ceived Time Location / / Volume Laterality 12/15/2019 10:40 PM CDT Impressions 12/15/2019 11:42 PM CDT IMPRESSION: 1. ??No acute change. 2. ??Well-defined ovoid 5.0 x 3.5 cm hyp odense region in the distal gastric body. Endoscopy is suggested in further evaluation to exclude large polyp. 3. ??1.8 cm right adrenal nodule is slig htly obscured by motion. This most likely represents an adenoma and a thin section unenhanced CT could confirm this. 4. ??Previous right hemicolectomy. Colon ic diverticula without CT evidence for diverticulitis. Narrative 12/15/2019 11:42 PM CDT EXAM: CT CHEST/ABDOMEN/PELVIS W CONTRAST LOCATION: [facility] DATE/TIME: 12/15/2019 10:40 PM INDICATION: Trauma -???Chest, abdomen, a nd pelvis injury. Fall. Pain. COMPARISON: None. TECHNIQUE: CT scan of the chest, abdomen , and pelvis was performed following injection of IV contrast. Multiplanar reformats were obtained. Dose reduction techniques were used. CONTRAST: 100mL Isovue-370 FINDINGS: LUNGS AND PLEURA: Small esophageal hiata l hernia. MEDIASTINUM/AXILLAE: Coronary artery anand cification. HEPATOBILIARY: Normal. PANCREAS: Normal. SPLEEN: Calcified granulomata. ADRENAL GLANDS: Motion artifact. 1.8 cm nodule in the right adrenal gland is most likely an adenoma. This could be confirmed with a thin section unenhanced CT. KIDNEYS/BLADDER: Normal. BOWEL: Right hemicolectomy. There is a p rominent ovoid well-defined 5.0 x 3.5 cm hypodense region within the distal gastric body. This has an appearance of a large intraluminal polyp and endoscopy is re commended in further evaluation. Colonic diverticula without CT evidence for diverticulitis. LYMPH NODES: Normal. VASCULATURE: Unremarkable. PELVIC ORGANS: Small fat-containing righ t inguinal hernia. MUSCULOSKELETAL: Lower lumbar degenerati ve change. Pronounced lower lumbar facet arthropathy. Procedure Note Richard Little MD - 12/15/2019Formattin g of this note might be different from the original. EXAM: CT CHEST/ABDOMEN/PELVIS W CONTRAST LOCATION: [facility] DATE/TIME: 12/15/2019 10:40 PM INDICATION: Trauma -???Chest, abdomen, a nd pelvis injury. Fall. Pain. COMPARISON: None. TECHNIQUE: CT scan of the chest, abdomen , and pelvis was performed following injection of IV contrast. Multiplanar reformats were obtained. Dose reduction techniques were used. CONTRAST: 100mL Isovue-370 FINDINGS: LUNGS AND PLEURA: Small esophageal hiata l hernia. MEDIASTINUM/AXILLAE: Coronary artery anand cification. HEPATOBILIARY: Normal. PANCREAS: Normal. SPLEEN: Calcified granulomata. ADRENAL GLANDS: Motion artifact. 1.8 cm nodule in the right adrenal gland is most likely an adenoma. This could be confirmed with a thin section unenhanced CT. KIDNEYS/BLADDER: Normal. BOWEL: Right hemicolectomy. There is a p rominent ovoid well-defined 5.0 x 3.5 cm hypodense region within the distal gastric body. This has an appearance of a large intraluminal polyp and endoscopy is recommended in further evaluation. Colonic diverticula without CT evidence for diverticulitis. LYMPH NODES: Normal. VASCULATURE: Unremarkable. PELVIC ORGANS: Small fat-containing righ t inguinal hernia. MUSCULOSKELETAL: Lower lumbar degenerati ve change. Pronounced lower lumbar facet arthropathy. IMPRESSION: 1. No acute change. 2. Well-defined ovoid 5.0 x 3.5 cm hypod ense region in the distal gastric body. Endoscopy is suggested in further evaluation to exclude large polyp. 3. 1.8 cm right adrenal nodule is slight ly obscured by motion. This most likely represents an adenoma and a thin section unenhanced CT could confirm this. 4. Previous right hemicolectomy. Colonic diverticula without CT evidence for diverticulitis. Kylie Barboza DO IMG CT ORDERABLES Glucose by meter (12/15/2019 11:14 PM CDT) athologist Signature Glucose 85 70 - 99 12/15/2019 [facility] mg/dL 11:20 PM CDT TEST, GLUCOSE Specimen Anatomical Collection Method Collection Time Receive d Time (Source) Location / / Volume Laterality 12/15/2019 11:14 12/15/2019 PM CDT 11:20 PM CDT Kylie Barboza DO LAB - BEAKER POCT Performing Organization Address City/[facility]/ZIP Code Phon e Number [facility] POINT OF CARE TEST, GLUCOSE POINT OF CARE TEST, GLUCOSE Glucose by meter (12/15/2019 10:29 PM CDT) athologist Signature Glucose 89 70 - 99 12/15/2019 [facility] mg/dL 10:35 PM CDT TEST, GLUCOSE Comment: Dr/RN Notified Specimen Anatomical Collection Method Collection Time Receive d Time (Source) Location / / Volume Laterality 12/15/2019 10:29 12/15/2019 PM CDT 10:35 PM CDT Kylie Barboza DO LAB - BEAKER POCT Performing Organization Address City/State/ZIP Code Phon e Number [facility] POINT OF CARE TEST, GLUCOSE POINT OF CARE TEST, GLUCOSE (ABNORMAL) Creatinine POCT (12/15/2019 10:18 PM CDT) athologist Signature Creatinine 1.8 (H) 0.66 - 12/15/2019 [facility] C[facility] 1.25 mg/dL 10:22 PM CDT TEST, HANDHELD METER GFR Estimate 36 (L) >60 12/15/2019 [facility] C[facility] mL/min/{1. 10:22 PM CDT TEST, 73_m2} HANDHELD METER GFR Estimate If 44 (L) >60 12/15/2019 POINT OF CARE Black mL/min/{1. 10:22 PM CDT TEST, 73_m2} HANDHELD METER Specimen Anatomical Collection Method Collection Time Receive d Time (Source) Location / / Volume Laterality 12/15/2019 10:18 12/15/2019 PM CDT 10:22 PM CDT Kylie Barboza DO LAB - BEAKER POCT Performing Organization Address City/State/ZIP Code Phon e Number [facility] POINT OF CARE TEST, HANDHELD METER POINT OF CARE TEST, HANDHELD METER ABO/Rh type and screen (12/15/2019 10:17 PM CDT) Patholo gist Method Time Signature ABO A 12/15/2019 [place] 10:58 PM CDT [facility] RH(D) Pos [facility] Antibody Neg 12/15/2019 [place] Screen 10:58 PM T [facility] Test Valid [place] 12/15/2019 [facility] 10:48 PM CDT [facility] Specimen 12/18/2019 12/15/2019 [place] Expires 10:48 PM T [facility] Specimen Anatomical Collection Method Collection Time Receive d Time (Source) Location / / Volume Laterality Blood specimen 12/15/2019 10:17 0 (specimen) PM CDT 10:22 PM CDT Kylie Barboza DO LAB - BLOOD BANK TEST ORDER Performing Organization Address City/[facility]/ZIP [facility] Phon e Number M [facility] [address] [place] [phone] HOSPITAL [facility] [address] [place] [phone] Hemoglobin A1c (12/15/2019 10:16 PM CDT) P athologist Signature Hemoglobin A1C 5.4 0 - 5.6 % 12/16/2019 [place] 1:30 AM CDT [facility] Comment: Normal <5.7% Prediabetes 5.7-6.4% ??Diab etes 6.5% or higher - adopted from ADA consensus guidelines. Specimen Anatomical Collection Method Collection Time Receive d Time (Source) Location / / Volume Laterality 12/15/2019 10:16 12/15/2019 PM CDT 10:21 PM CDT Kylie Barboza DO LAB - BLOOD ORDERABLES Performing Organization Address City/State/ZIP Code Phon e Number M [facility] [address] [address] [facility] [address] [place] [address], [place] [phone] Troponin I (now) (12/15/2019 10:16 PM CDT) athologist Signature Troponin I ES <0.015 0.000 - 12/15/2019 [place] 0.045 ug/L 10:44 PM CDT [facility] Comment: The 99th percentile for upper reference range is 0.045 ug/L. ??Troponin values in the range of 0.045 - 0.120 ug/L may b e associated with risks of adverse clinical events. Specimen Anatomical Collection Method Collection Time Receive d Time (Source) Location / / Volume Laterality Blood specimen 12/15/2019 10:16 0 (specimen) PM CDT 10:21 PM CDT Kylie Barboza DO LAB - BLOOD ORDERABLES Performing Organization Address City/State/ZIP Code Phon e Number M [facility] [address] [place], [place] [address] [facility] [address] [place], [place] [address] [facility] [phone] CK total (12/15/2019 10:16 PM CDT) athologist [facility] CK Total 149 30 - 300 12/15/2019 [facility] U/L 10:42 PM CDT HOSPITAL Specimen Anatomical Collection Method Collection Time Receive d Time (Source) Location / / Volume Laterality Blood specimen 12/15/2019 10:16 0 (specimen) PM CDT 10:21 PM CDT Kylie Barboza DO LAB - BLOOD ORDERABLES Performing Organization Address City/State/ZIP Code Phon e Number M [facility] [address] [place], [place] [address] [facility] [address] [place], [place] [address], [facility] [phone] (ABNORMAL) Alcohol ethyl (12/15/2019 10:16 PM CDT) athologist Signature Ethanol g/dL 0.18 (H) <0.01 g/dL 12/15/2019 [place] 10:42 PM CDT [facility] Specimen Anatomical Collection Method Collection Time Receive d Time (Source) Location / / Volume Laterality Blood specimen 12/15/2019 10:16 0 (specimen) PM CDT 10:21 PM CDT Kylie Barboza DO LAB - BLOOD ORDERABLES Performing Organization Address City/[facility] Phon e Yohana [facility] [address] [place], [place] [address] [facility] [address] [place], [place] [address], [facility] [phone] Partial thromboplastin time (12/15/2019 10:16 PM CDT) athologist Signature PTT 26 22 - 37 sec 12/15/2019 [facility] 10:46 PM CDT HOSPITAL Specimen Anatomical Collection Method Collection Time Receive d Time (Source) Location / / Volume Laterality Blood specimen 12/15/2019 10:16 0 (specimen) PM CDT 10:21 PM CDT Kylie Barboza DO LAB - BLOOD ORDERABLES Performing Organization Address City/[facility] Phon e Yohana Sin [facility] [address] [place], [place] [address] [facility] [address] [place], [place] [address], [facility] [phone] INR (12/15/2019 10:16 PM CDT) athologist Signature INR 1.00 0.86 - 1.14 12/15/2019 [facility] 10:46 PM CDT HOSPITAL Specimen Anatomical Collection Method Collection Time Receive d Time (Source) Location / / Volume Laterality Blood specimen 12/15/2019 10:16 08/17/202 0 (specimen) PM CDT 10:21 PM CDT Kylie Barboza DO LAB - BLOOD ORDERABLES Performing Organization Address City/State/ZIP Code Phon e Yohana [facility] [address] [place], [place] [address] [facility] [address] [place], [place] [address] [facility] [phone] (ABNORMAL) Comprehensive metabolic panel (12/15/2019 10:16 PM CDT) Analysis Performed At [facility] logis Time Signature Sodium 133 133 - 144 12/15/2019 [place] mmol/L 10:33 PM [facility] Potassium 3.5 3.4 - 5.3 12/15/2019 [place] mmol/L 10:33 PM [facility] Chloride 100 94 - 109 12/15/2019 [place] mmol/L 10:33 PM [facility] Carbon Dioxide 27 20 - 32 12/15/2019 [place] mmol/L 10:39 PM [facility] Anion Gap 6 3 - 14 12/15/2019 [place] mmol/L 10:39 PM [facility] Glucose 56 (L) 70 - 99 12/15/2019 [place] mg/dL 10:39 PM [facility] Urea Nitrogen 23 7 - 30 12/15/2019 [place] mg/dL 10:39 PM [facility] Creatinine 1.54 (H) 0.66 - 12/15/2019 [place] 1.25 mg/dL 10:39 PM [facility] GFR Estimate 41 (L) >60 12/15/2019 [place] mL/min/{1. 10:39 PM [facility] 73_m2} [facility] Comment: Non GFR Calc Starting 04/16/2018, serum creatinine ba sed estimated GFR (eGFR) will be calculated using the Chronic Kidney Dise [facility] Epidemiology Collaboration (CKD-EPI) equation. GFR Estimate If 47 (L) >60 mL/min/{1.73_m2} 12/15/2019 10:[address] [facility] Comment: GFR Calc Starting 04/16/2018, serum creatinine ba sed estimated GFR (eGFR) will be calculated using the Chronic Kidney Dise [place] Epidemiology Collaboration (CKD-EPI) equation. Calcium 7.8 (L) 8.5 - 10.1 12/15/2019 10:39 PM [facility] mg/dL [facility] [place] [facility] Bilirubin Total 0.3 0.2 - 1.3 mg/dL 12/15/2019 10:42 P M [facility] Albumin 3.6 3.4 - 5.0 g/dL 12/15/2019 10:42 PM [facility] Protein Total 6.7 (L) 6.8 - 8.8 g/dL 12/15/2019 10:42 PM [facility] Alkaline Phosphatase 66 40 - 150 U/L 12/15/2019 10:42 PM [facility] ALT 50 0 - 70 U/L 12/15/2019 10:42 PM [facility] AST 58 (H) 0 - 45 U/L 12/15/2019 10:42 PM [facility] Specimen Anatomical Collection Method Collection Time Receive d Time (Source) Location / / Volume Laterality Blood specimen 12/15/2019 10:16 0 (specimen) PM CDT 10:21 PM T Kylie Barboza DO LAB - BLOOD ORDERABLES Performing Organization Address City/State/ZIP Code Phon [place] Number [place] [address] [address] [place] [address] [facility] [address] [phone] (ABNORMAL) CBC with platelets differential (12/15/2019 10:16 PM CDT) [facility] Method Time Signature WBC 7.9 4.0 - 12/15/2019 [facility] 11.0 10:24 PM [facility] 10e9/L [facility] [place] RBC Count 3.73 (L) 4.4 - 5.9 12/15/2019 [place] 10e12/L 10:24 PM [facility] Hemoglobin 12.6 (L) 13.3 - 12/15/2019 [place] 17.7 g/dL 10:24 PM [facility] Hematocrit 38.7 (L) 40.0 - 12/15/2019 [facility] 53.0 % 10:24 PM [facility] MCV 104 (H) 78 - 100 12/15/2019 [facility] fl 10:24 PM [facility] MCH 33.8 (H) 26.5 - 12/15/2019 [facility] 33.0 pg 10:24 PM [facility] MCHC 32.6 31.5 - 12/15/2019 [facility] 36.5 g/dL 10:24 PM [facility] RDW 13.2 10.0 - 12/15/2019 [facility] 15.0 % 10:24 PM [facility] Platelet Count 143 (L) 150 - 450 12/15/2019 [facility] 10e9/L 10:24 PM [facility] Diff Method Automated 12/15/2019 [facility] Method 10:24 PM [facility] % Neutrophils 37.6 % 12/15/2019 [facility] 10:24 PM [facility] % Lymphocytes 44.3 % 12/15/2019 [facility] 10:24 PM [facility] % Monocytes 7.9 % 12/15/2019 [facility] 10:24 PM [facility] % Eosinophils 7.9 % 12/15/2019 [facility] 10:24 PM [facility] % Basophils 1.0 % 12/15/2019 [facility] 10:24 PM [facility] % Immature 1.3 % 12/15/2019 [facility] Granulocytes 10:24 PM [facility] Nucleated RBCs 0 0 /100 12/15/2019 [facility] 10:24 PM [facility] Absolute 3.0 1.6 - 8.3 12/15/2019 [facility] Neutrophil 10e9/L 10:24 PM [facility] Absolute 3.5 0.8 - 5.3 12/15/2019 [facility] Lymphocytes 10e9/L 10:24 PM [facility] Absolute 0.6 0.0 - 1.3 12/15/2019 [facility] Monocytes 10e9/L 10:24 PM [facility] Absolute 0.6 0.0 - 0.7 12/15/2019 [facility] Eosinophils 10e9/L 10:24 PM [facility] Absolute 0.1 0.0 - 0.2 12/15/2019 [facility] Basophils 10e9/L 10:24 PM [facility] Abs Immature 0.1 0 - 0.4 12/15/2019 [facility] Granulocytes 10e9/L 10:24 PM [facility] Absolute 0.0 12/15/2019 [place] Nucleated RBC 10:24 PM [facility] Specimen Anatomical Collection Method Collection Time Receive d Time (Source) Location / / Volume Laterality Blood specimen 12/15/2019 10:16 0 (specimen) PM CDT 10:21 PM CDT Kylie Barboza DO LAB - BLOOD ORDERABLES Performing Organization Address City/[facility]/ZIP [facility] Phon e Number [place] [address] [address] [place] [address] [facility] [address] [place] [address] [address] [phone] EKG 12 lead (12/15/2019 10:11 PM CDT) [facility] gist Method Time Signature Interpretation ECG Click View RADIOLOGY Image link RESULTS to view waveform and result Specimen (Source) Anatomical Collection Method Collection Time Re ceived Time Location / / Volume Laterality 12/15/2019 10:11 PM CDT Kylie Barboza DO ECG ORDERABLES Performing Organization Address City/[facility]/ZIP Code Phon e Number RADIOLOGY RESULTS (ABNORMAL) Glucose by meter (12/15/2019 10:02 PM CDT) P athologist Signature Glucose 61 (L) 70 - 99 12/15/2019 [facility] mg/dL 10:09 PM CDT TEST, GLUCOSE Comment: Dr/RN Notified Specimen Anatomical Collection Method Collection Time Receive d Time (Source) Location / / Volume Laterality 12/15/2019 10:02 12/15/2019 PM CDT 10:09 PM CDT Kylie Barboza DO LAB - BEAKER POCT Performing Organization Address City/[facility]/ZIP Code Phon e Number [facility] POINT OF CARE TEST, GLUCOSE POINT OF CARE TEST, GLUCOSE documented in this encounter Visit Diagnoses Diagnosis Mucosal abnormality of stomach - Primary Other specified disorder of stomach and duodenum Abrasion of face, initial encounter Alcoholic intoxication without complicat ion (H) Hypoglycemia Hypoglycemia, unspecified 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 Abnormal CT of the abdomen Nonspecific (abnormal) findings on radio logical and other examination of abdominal area, including retroperitoneum Abrasion of right knee, initial encounte r Hypoglycemia Hypoglycemia, unspecified documented in this encounter Administered Medications Inactive Administered Medications - up to 3 most recent administrations Medication Order MAR Action Action Date Dose Rate Site 0.9% sodium chloride BOLUS New Bag 12/15/2019 10:54 PM CDT 65 mLs Intravenous, 100 mL, ONCE, On Sun12/15/19 at 2242, For 1 dose acetaminophen (TYLENOL) Suppository 650 mg 650 mg, Rectal, EVERY 4 HOURS PRN, mild pain, Starting on Sun12/16/19 at 0050, Alternate ibuprofen (if ordered) with acetaminophen. M aximum acetaminophen dose from all sources = 75 mg/kg/day not to exceed 4 grams/ day. acetaminophen (TYLENOL) tablet 1,000 mg Given 12/16/2019 12:16 AM CDT 1,000 mg 1,000 mg, Oral, ONCE, On Sun12/15/19 at 2352, For 1 dose, Maximum acetaminophen dose from all sources = 75 mg/kg/day not to exceed 4 gram acetaminophen (TYLENOL) tablet 650 mg Given 12/16/2019 8:46 AM CDT 650 mg 650 mg, Oral, EVERY 4 HOURS PRN, mild pain, Starting on Sun12/16/19 at 0050, Alternate ibuprofen (if ordered) with acetaminophen. Maximum acetaminophen dose from all sources = 75 mg/kg/day not to exceed 4 grams/day. dextrose 50 % injection 25-50 mL 25-50 mL, Intravenous, EVERY 15 MIN PRN, low blood sug ar, Administer over 1-5 Minutes, Starting on Sun12/16/19 at 0050 , Use if have IV access, BG less than 70 mg/dL and meet dose criteria below: Dose if conscious and alert (or disorientated) and NPO = 25 mL Dose if unconscious / no t alert = 50 mL Give first dose for initial blood glucose less than 70 mg/dL. If blood glucose at 15 minute recheck is less than or equal to 100 mg/dL continue to a dminister carbohydrate treatment every 15 minutes, as needed, based on blood gluco se and assessment parameters until blood glucose level is above 100 mg/dL. Vesica nt. For ordered doses up to 25 g, give IV Push undiluted. Give each 5g over 1 minute. dextrose 50 % injection 50 mL Given 12/15/2019 10:11 PM CDT 50 mLs 50 mL, Intravenous, ONCE, On 12/15/19 at 2204, For 1 dose, Vesicant. For ordered doses up to 25 g, give IV Push undiluted. Give each 5g over 1 minute. flumazenil (ROMAZICON) injection 0.2 mg 0.2 mg, Intravenous, EVERY 1 MIN PRN, be nzodiazepine reversal, Administer over 1 Minutes, Starting on Sun12/16/19 at 0050 , Give if patient unarousable, RR less than 8, or appears to be approaching respiratory arrest. Gi ve over 15 secs. If inadequate response after 45 seconds, may repeat q1min (MAX total dose: 1 mg). Continue monitoring for a minimum of 2 h ours. Notify MD if administered. Irritant. For ordered IV doses 0.1-1 mg, give IV P ush undiluted. Administer each 0.2mg over 15 seconds. folic acid (FOLVITE) tablet 1 mg Given 12/16/2019 8:20 AM CDT 1 mg 1 mg, Oral, DAILY, First dose on Sun12/16/19 at 0800 glucagon injection 1 mg 1 mg, Subcutaneous, EVERY 15 MIN PRN, low blood sugar, May repeat x 1 only, Starting on Sun12/16/19 at 0050, May giv e SQ or IM. ONLY use glucagon IF patient has NO IV access AND is UNABLE to swallo w AND blood glucose is LESS than or EQUAL to 50 mg/dL. If ordered IV, give IV Push over 1 minute . Reconstitute with 1mL sterile water. glucose gel 15-30 g 15-30 g, Oral, EVERY 15 MIN PRN, low blo od sugar, Starting on Sun12/16/19 at 0050, Give first dose for initial blood glucose less than 70 mg/dL per the dosing instructions below. If blood glucose at 15 minute rechecks is still less than or equal to 100 mg/dL, continue to administ er doses per blood glucose parameters every 15 minutes, as needed, until blood glucose level is ab ove 100 mg/dL. Dosing Instructions: ~If patient is conscious a nd able to swallow and NO enteral tube For initial BG 51-69mg/dL OR 15 minute reche ck BG 51- 100 mg/dL - give 15 g For BG less than or equal to 50 mg/dL - give 30 g ~ If Enteral tube For initial BG 51-69mg/dL OR 15 minute recheck BG 51- 100 mg/dL - give apple juice 120 mL (4 oz or 15 g of CHO) via enteral tube For BG less than o r equal to 50 mg/dL - Give apple juice 240 mL (8 oz or 30 g of CHO) via enteral tub e ~Oral gel is preferable for conscious and able to swallow patient. ~IF gel unavail able or patient refuses may provide apple juice per Enteral tube dosing instructio ns. Document juice on I and O flowsheet. insulin aspart (NovoLOG) injection (RAPI D ACTING) 1-3 Units, Subcutaneous, 3 TIMES DAILY B EFORE MEALS, First dose on Sun12/16/19 at 0730, Correction Scale - LOW INSULIN RESISTANCE DOSING Do Not give Correction Insulin if Pre-Meal BG less than 140. Fo r Pre-Meal BG 140 - 239 give 1 unit. For Pre-Meal BG 240 - 339 give 2 units. For Pre-Meal BG greater than or equal to 340 give 3 units. To be given with prandial insulin, and b ased on pre-meal blood glucose. Notify provider if glucose greater than or eq ual to 350 mg/dL after administration of correction dose. If given at mealtim e, administer within 30 minutes of start of meal insulin aspart (NovoLOG) injection (RAPI D ACTING) 1-3 Units, Subcutaneous, AT BEDTIME, Fir st dose on Sun12/16/19 at 0051, LOW INSULIN RESISTANCE DOSING Do Not give Bedtime Co rrection Insulin if BG less than 200. For BG 200 - 299 give 1 unit. For BG 300 - 399 give 2 unit s For BG greater than or equal 400 give 3 units. Notify provider if glucose gre ater than or equal to 350 mg/dL after administration of correction dose. If give n at mealtime, administer within 30 minutes of start of meal iopamidol (ISOVUE-370) solution 500 mL Given 12/15/2019 10:54 PM CDT 100 mLs 500 mL, Intravenous, ONCE, On Sun12/15/19 at 2242, For 1 dose LORazepam (ATIVAN) injection 1-2 mg 1-2 mg, Intravenous, EVERY 30 MIN PRN, o ther, per CIWA-Ar score, Starting on Sun12/16/19 at 0050, Oral dosing is the preferred route of administration. Dose according to CIWA-Ar score: For CIWA-Ar Score LESS DOUGLAS N OR EQUAL TO 7: ~ NO LORazepam (ATIVAN) is to be administered and ~ repeat CIWA-Ar scale in 4 hours and PRN For CIWA-Ar Score 8-12: ~ give LORaz epam (ATIVAN) 1 mg PO or IV and ~ repeat CIWA-Ar scale in 1 hour For CIWA-Ar Scor e 13-15: ~ give LORazepam (ATIVAN) 2 mg PO or IV ~ and repeat CIWA-Ar scale in 30 m inutes For CIWA-Ar Score GREATER THAN OR EQUAL TO 16: ~ give LORazepam (ATIVAN) 2 mg PO or IV and ~ repeat CIWA-Ar scale in 30 minutes Doses should be withheld for nystagmus, sedation, ataxia, dysarthria or respiratory rate less than 12. If dose i s being held more than once, provider must be notified. This drug may cause significant respirato ry depression. Monitor respiratory status and vital signs carefully for 1 millie r after each dose. LORazepam (ATIVAN) tablet 1-2 mg 1-2 mg, Oral, EVERY 30 MIN PRN, other, p er CIWA-Ar score., Starting on Sun12/16/19 at 0050, Oral dosing is the preferred ro [place] of administration. Dose according to CIWA-Ar score: For CIWA-Ar Score LESS TH AN OR EQUAL TO 7: ~ NO LORazepam (ATIVAN) is to be administered and ~ repeat CIWA-Ar scale in 4 hours and PRN For CIWA-Ar Score 8-12: ~ give LORazepam (ATIVAN) 1 mg PO or IV and ~ repeat CIWA-Ar scale in 1 hour For CIWA-Ar Score 13-15: ~ give REMI azepam (ATIVAN) 2 mg PO or IV ~ and repeat CIWA-Ar scale in 30 minutes For CIWA-Ar Score GREATER THAN OR EQUAL TO 16: ~ give LORazepam (ATIVAN) 2 mg PO or IV and ~ repeat CIWA-Ar scale in 30 minutes Doses should be withheld for nystagmus, sedati on, ataxia, dysarthria or respiratory rate less than 12. If dose is being held more than once, pr ovider must be notified. melatonin tablet 5 mg 5 mg, Oral, EVERY EVENING PRN, sleep, Starting on Sun12/16/19 at 0050 multivitamin w/minerals (THERA-VIT-M) Given 12/16/2019 8:20 AM C DT 1 tablet tablet 1 tablet 1 tablet, Oral, DAILY, First dose on Sun12/16/19 at 0800 naloxone (NARCAN) injection 0.1-0.4 mg 0.1-0.4 mg, Intravenous, EVERY 2 MIN PRN , opioid reversal, Starting on Sun12/16/19 at 0050, For respiratory rate LESS than or EQUAL to 8. Partial reversal dose: 0.1 mg titrated q 2 minutes for Analgesia Si de Effects Monitoring Sedation Level of 3 (frequently drowsy, arousable, drifts to sleep during conversation).Full reversal dose: 0.4 mg bolus for Analgesia Side Effects Monitori ng Sedation Level of 4 (somnolent, minimal or no response to st imulation). For ordered IV doses 0.1-2mg give IVP. Give each 0.4mg over 15 second s in emergency situations. For non-emergent situations further dilute in 9mL of NS to facilitate t itration of response. ondansetron (ZOFRAN) injection 4 mg 4 mg, Intravenous, EVERY 6 HOURS PRN, nausea, vomiting , Administer over 2-5 Minutes, Starting on Sun12/16/19 at 0050, This is Step 1 of nausea and vomiting management. If nausea not resolved in 15 minutes, go t o Step 2 prochlorperazine (COMPAZINE). Irritant. For ordered IV do ses 0.1-4 mg, give IV Push undiluted over 2-5 minutes. ondansetron (ZOFRAN-ODT) ODT tab 4 mg 4 mg, Oral, EVERY 6 HOURS PRN, nausea, v omiting, Starting on Sun12/16/19 at 0050, This is Step 1 of nausea and vomiting management. If n ausea not resolved in 15 minutes, go to Step 2 prochlorperazine (COMPAZINE). Do not push through foil backing. Peel back foil and gently remove. Place on to ngue immediately. Administration with liquid unnecessary W ith dry hands, peel back foil backing and gently remove tablet. Do not push oral d isintegrating tablet through foil backing. Administer immediately on tongue and oral disintegrati ng tablet dissolves in seconds, then swallow with saliva. Liquid not required . senna-docusate (SENOKOT-S/PERICOLACE) 8. 6-50 MG per tablet 1 tablet 1 tablet, Oral, 2 TIMES DAILY PRN, const ipation, Starting on Sun12/16/19 at 0050, If no bowel movement in 24 hours, increa se to 2 tablets PO. Hold for loose stools. This is the first step of a three step constipation tr eatment. Hold for loose stools. senna-docusate (SENOKOT-S/PERICOLACE) 8. 6-50 MG per tablet 2 tablet 2 tablet, Oral, 2 TIMES DAILY PRN, const ipation, Starting on Sun12/16/19 at 0050, Hold for loose stools. This is the first step of a thr ee step constipation treatment. Hold for loose stools. thiamine (B-1) tablet 100 mg 100 mg, Oral, 3 TIMES DAILY, First dose on Sun12/18/19 at 0800, For 15 doses thiamine (B-1) tablet 100 mg 100 mg, Oral, DAILY, First dose on Sun12/23/19 at 0800 thiamine (B-1) tablet 200 mg Given 12/16/2019 8:20 AM CDT 200 mg 200 mg, Oral, 3 TIMES DAILY, First dose on Sun12/16/19 at 0800, For 6 doses documented in this encounter Active and Recently Administered Medications Times are shown in CDT. Scheduled Medication Order 12/14/2019 12/15/2019 12/16/2019 0.9% sodium chloride BOLUS (COMPLETED) 2 254 (New Bag - Provider: Ondina Alexander) Intravenous, 100 mL, ONCE, Sun12/15/19 at 2242, For 1 dose acetaminophen (TYLENOL) tablet 1,000 mg (COMPLETED) 0016 (Given - Provider: Sil Chan RN) 1,000 mg, Oral, ONCE, Sun12/15/19 at 235 2, For 1 dose, Maximum acetaminophen dose from all sources = 75 mg/kg/day not to exceed 4 gram dextrose 50 % injection 50 mL (COMPLETED) 2211 (Given - Provider: Sil Chan RN) 50 mL, Intravenous, ONCE, Sun12/15/19 at 2204, For 1 dose, Vesicant. For ordered doses up to 25 g, give IV Push undiluted. Give each 5g over 1 minute. folic acid (FOLVITE) tablet 1 mg 0820 (Given - Provider: Pooja Norris, ELI) 1 mg, Oral, DAILY, First dose on Sun12/16/19 at 0800 insulin aspart (NovoLOG) injection (RAPID ACTING) 0821 (Not Given - Provider: Pooja Norris RN - Reason: Contraindicated)1200 (Canceled Entry - Provider: Orders Generic Provider - Comment: Automatically canceled at discontinue of medication order) 1-3 Units, Subcutaneous, 3 TIMES DAILY B EFORE MEALS, First dose on Sun12/16/19 at 0730, Correction Scale - LOW INSULIN RESISTANCE DOSING Do Not give Correction Insulin if Pre-Meal BG less than 140. For Pre-Meal BG 140 - 239 give 1 unit. For P re-Meal BG 240 - 339 give 2 units. For Pre-Meal BG greater than or equal to 340 give 3 units. To be given with prandial insulin, and based on pre-meal blood gluco se. Notify provider if glucose greater t morgan or equal to 350 mg/dL after administration of correction dose. If given at mealtime, administer within 30 minutes of start of meal insulin aspart (NovoLOG) injection (RAPID ACTING) 0052 (Not Given - Provider: Tyler Ascencio RN - Reason: Order parameters not met) 1-3 Units, Subcutaneous, AT BEDTIME, Fir st dose on Sun12/16/19 at 0051, LOW INSULIN RESISTANCE DOSING Do Not give Bedtime Correction Insulin if BG less than 200. For BG 200 - 299 give 1 unit. For BG 300 - 399 give 2 units For BG greater than or equal 400 give 3 units. Notify provider if glucose greater than or equal to 350 mg/dL after administration of correction dose. If given at mealtime, administer within 30 minutes of start of meal iopamidol (ISOVUE-370) solution 500 mL (COMPLETED) 2254 (Given - Provider: Ondina Alexander) 500 mL, Intravenous, ONCE, Sun12/15/19 at 2242, For 1 dose multivitamin w/minerals (THERA-VIT-M) tablet 1 tablet 0820 (Given - Provider: Pooja Norris, ELI) 1 tablet, Oral, DAILY, First dose on Sun12/16/19 at 0800 thiamine (B-1) tablet 100 mg(Linked Group 1) 100 mg, Oral, 3 TIMES DAILY, First dose on Sun12/18/19 at 0800, For 15 doses thiamine (B-1) tablet 100 mg(Linked Group 1) 100 mg, Oral, DAILY, First dose on Sun12/23/19 at 0800 thiamine (B-1) tablet 200 mg(Linked Group 1) 0820 (Given - Provider: Pooja Norris, ELI) 200 mg, Oral, 3 TIMES DAILY, First dose on Sun12/16/19 at 0800, For 6 doses PRN Medication Order 12/14/2019 12/15/2019 12/16/2019 acetaminophen (TYLENOL) Suppository 650 mg 650 mg, Rectal, EVERY 4 HOURS PRN, mild pain, Starting Sun12/16/19 at 0050, Alternate ibuprofen (if ordered) with acetaminophen. Maximum acetaminophen dose from all sources = 75 mg/kg/day not to exceed 4 grams/day. acetaminophen (TYLENOL) tablet 650 mg 0846 (Given - Provider: Pooja Norris, ELI) 650 mg, Oral, EVERY 4 HOURS PRN, mild pa in, Starting Sun12/16/19 at 0050, Alternate ibuprofen (if ordered) with acetaminophen. Maximum acetaminophen dose from all sources = 75 mg/kg/day not to exceed 4 grams/day. dextrose 50 % injection 25-50 mL(Linked Group 2) 25-50 mL, Intravenous, EVERY 15 MIN PRN, low blood sugar, Administer over 1-5 Minutes, Starting Sun12/16/19 at 0050, Use if have IV access, BG less than 70 mg/dL and meet dose criteria below: Dose if co nscious and alert (or disorientated) and NPO = 25 mL Dose if unconscious / not alert = 50 mL Give first dose for initial blood glucose less than 70 mg/dL. If blood glucose at 15 minute recheck is less t morgan or equal to 100 mg/dL continue to ad illuminator carbohydrate treatment every 15 minutes, as needed, based on blood glucose and assessment parameters until blood glucose level is above 100 mg/dL. Vesica nt. For ordered doses up to 25 g, give I V Push undiluted. Give each 5g over 1 minute. flumazenil (ROMAZICON) injection 0.2 mg 0.2 mg, Intravenous, EVERY 1 MIN PRN, be nzodiazepine reversal, Administer over 1 Minutes, Starting Sun12/16/19 at 0050, Give if patient unarousable, RR less than 8, or appears to be approaching respirat ory arrest. Give over 15 secs. If inadeq uate response after 45 seconds, may repeat q1min (MAX total dose: 1 mg). Continue monitoring for a minimum of 2 hours. Notify MD if administered. Irritant. For or dered IV doses 0.1-1 mg, give IV Push un diluted. Administer each 0.2mg over 15 seconds. glucagon injection 1 mg(Linked Group 2) 1 mg, Subcutaneous, EVERY 15 MIN PRN, lo w blood sugar, May repeat x 1 only, Starting Sun12/16/19 at 0050, May give SQ or IM. ONLY use glucagon IF patient has NO IV access AND is UNABLE to swallow AND bl ood glucose is LESS than or EQUAL to 50 mg/dL. If ordered IV, give IV Push over 1 minute. Reconstitute with 1mL sterile water. glucose gel 15-30 g(Linked Group 2) 15-30 g, Oral, EVERY 15 MIN PRN, low blo od sugar, Starting Sun12/16/19 at 0050, Give first dose for initial blood glucose less than 70 mg/dL per the dosing instructions below. If blood glucose at 15 min [place] rechecks is still less than or equal to 100 mg/dL, continue to administer doses per blood glucose parameters every 15 minutes, as needed, until blood glucose level is above 100 mg/dL. Dosing Instruc tions: ~If patient is conscious and able to swallow and NO enteral tube For initial BG 51-69mg/dL OR 15 minute recheck BG 51- 100 mg/dL - give 15 g For BG less than or equal to 50 mg/dL - give 30 g ~ If Enteral tube For initial BG 51-69mg/dL OR 15 minute recheck BG 51- 100 mg/dL - give apple juice 120 mL (4 oz or 15 g of CHO) via enteral tube For BG less than or equal to 50 mg/dL - Give apple juice 24 0 mL (8 oz or 30 g of CHO) via enteral t ube ~Oral gel is preferable for conscious and able to swallow patient. ~IF gel unavailable or patient refuses may provide apple juice per Enteral tube dosing instructions. Document juice on I and O flowsheet. LORazepam (ATIVAN) injection 1-2 mg(Linked Group 3) 1-2 mg, Intravenous, EVERY 30 MIN PRN, o ther, per CIWA-Ar score, Starting Sun12/16/19 at 0050, Oral dosing is the preferred route of administration. Dose according to CIWA-Ar score: For CIWA-Ar Score LE SS THAN OR EQUAL TO 7: ~ NO LORazepam (A TIVAN) is to be administered and ~ repeat CIWA-Ar scale in 4 hours and PRN For CIWA-Ar Score 8-12: ~ give LORazepam (ATIVAN) 1 mg PO or IV and ~ repeat CIWA-Ar sc bria in 1 hour For CIWA-Ar Score 13-15: ~ give LORazepam (ATIVAN) 2 mg PO or IV ~ and repeat CIWA-Ar scale in 30 minutes For CIWA-Ar Score GREATER THAN OR EQUAL TO 16: ~ give LORazepam (ATIVAN) 2 mg PO o r IV and ~ repeat CIWA-Ar scale in 30 mi nutes Doses should be withheld for nystagmus, sedation, ataxia, dysarthria or respiratory rate less than 12. If dose is being held more than once, provider must b e notified. This drug may cause signific ant respiratory depression. Monitor respiratory status and vital signs carefully for 1 hour after each dose. LORazepam (ATIVAN) tablet 1-2 mg(Linked Group 3) 1-2 mg, Oral, EVERY 30 MIN PRN, other, p er CIWA-Ar score., Starting Sun12/16/19 at 0050, Oral dosing is the preferred route of administration. Dose according to CIWA-Ar score: For CIWA-Ar Score LESS DOUGLAS N OR EQUAL TO 7: ~ NO LORazepam (ATIVAN) is to be administered and ~ repeat CIWA-Ar scale in 4 hours and PRN For CIWA-Ar Score 8-12: ~ give LORazepam (ATIVAN) 1 mg PO or IV and ~ repeat CIWA-Ar scale in 1 hour For CIWA-Ar Score 13-15: ~ give LORazepam (ATIVAN) 2 mg PO or IV ~ and repeat CIWA-Ar scale in 30 minutes For CIWA-Ar Score GREATER THAN OR EQUAL TO 16: ~ give LORazepam (ATIVAN) 2 mg PO or IV a nd ~ repeat CIWA-Ar scale in 30 minutes Doses should be withheld for nystagmus, sedation, ataxia, dysarthria or respiratory rate less than 12. If dose is being held more than once, provider must be notified. melatonin tablet 5 mg 5 mg, Oral, EVERY EVENING PRN, sleep, Starting Sun12/16/19 at 00 50 naloxone (NARCAN) injection 0.1-0.4 mg 0.1-0.4 mg, Intravenous, EVERY 2 MIN PRN , opioid reversal, Starting Sun12/16/19 at 0050, For respiratory rate LESS than or EQUAL to 8. Partial reversal dose: 0.1 mg titrated q 2 minutes for Analgesia Si de Effects Monitoring Sedation Level of 3 (frequently drowsy, arousable, drifts to sleep during conversation).Full reversal dose: 0.4 mg bolus for Analgesia Side Effects Monitoring Sedation Level of 4 ( somnolent, minimal or no response to sti mulation). For ordered IV doses 0.1-2mg give IVP. Give each 0.4mg over 15 seconds in emergency situations. For non- emergent situations further dilute in 9mL of NS to facilitate titration of response. ondansetron (ZOFRAN) injection 4 mg(Linked Group 4) 4 mg, Intravenous, EVERY 6 HOURS PRN, na usea, vomiting, Administer over 2-5 Minutes, Starting Sun12/16/19 at 0050, This is Step 1 of nausea and vomiting management. If nausea not resolved in 15 minutes, go to Step 2 prochlorperazine (COMPAZIN E). Irritant. For ordered IV doses 0.1-4 mg, give IV Push undiluted over 2-5 minutes. ondansetron (ZOFRAN-ODT) ODT tab 4 mg(Linked Group 4) 4 mg, Oral, EVERY 6 HOURS PRN, nausea, v omiting, Starting Sun12/16/19 at 0050, This is Step 1 of nausea and vomiting management. If nausea not resolved in 15 minutes, go to Step 2 prochlorperazine (COMP AZINE). Do not push through foil backing . Peel back foil and gently remove. Place on tongue immediately. Administration with liquid unnecessary With dry hands, peel back foil backing and gently remove t ablet. Do not push oral disintegrating t ablet through foil backing. Administer immediately on tongue and oral disintegrating tablet dissolves in seconds, then swallow with saliva. Liquid not required. senna-docusate (SENOKOT-S/PERICOLACE) 8. 6-50 MG per tablet 1 tablet(Linked Group 5) 1 tablet, Oral, 2 TIMES DAILY PRN, const ipation, Starting Sun12/16/19 at 0050, If no bowel movement in 24 hours, increase to 2 tablets PO. Hold for loose stools. This is the first step of a three step constipation treatment. Hold for loose stools. senna-docusate (SENOKOT-S/PERICOLACE) 8. 6-50 MG per tablet 2 tablet(Linked Group 5) 2 tablet, Oral, 2 TIMES DAILY PRN, const ipation, Starting Sun12/16/19 at 0050, Hold for loose stools. This is the first step of a three step constipation treatment. Hold for loose stools. Linked Groups Order Group 1: thiamine (B-1) tablet 200 mgJump to med 200 mg, Oral, 3 TIMES DAILY, First dose on Sun12/16/19 at 0800, For 6 doses Followed by thiamine (B-1) tablet 100 mgJump to med 100 mg, Oral, 3 TIMES DAILY, First dose on Sun12/18/19 at 0800, For 15 doses Followed by thiamine (B-1) tablet 100 mgJump to med 100 mg, Oral, DAILY, First dose on Sun at 0800 Group 2: glucose gel 15-30 gJump to med 15-30 g, Oral, EVERY 15 MIN PRN, low blo od sugar, Starting Sun12/16/19 at 0050
Give first dose for initial blood glucose less than 70 mg/dL per the dosing instructions below. If blood glucose at 15 minute rechecks is still less than or equal to 100 mg/dL, continue to administer doses per blood glucose parameters every 15 minutes, as needed, until blood glucose level is above 100 mg/ dL. Dosing Instructions:&nbsp ;~If patient is conscious and able to swallow and NO enteral tube For initial BG 51-69mg/dL OR 15 minute recheck BG 51- 100 mg/dL - give 15 g For BG less than or equal to 50 mg /dL - give 30 g ~ If Enteral tube For initial BG 51-69mg/dL OR 15 minute recheck BG 51- 100 mg/dL - give apple juice 120 mL (4 oz or 15 g of CHO) via enteral tube For BG less than or equal to 50 mg/dL - Give apple juice 240 mL (8 oz or 30 g of CHO) via enteral tube ~Oral gel is preferable for conscious and able to swallow patient. ~IF gel unavailable or pa tient refuses may provide apple juice per Enteral tube dosing instructions. Document juice on I and O flowsheet.
Or dextrose 50 % injection 25-50 mLJump to med 25-50 mL, Intravenous, EVERY 15 MIN PRN, low blood sugar, Administer over 1-5 Minutes, Starting Sun12/16/19 at 0050
Use if have IV access, BG less than 70 mg/dL and meet dose criteria below:&am p;nbsp;Dose if conscious and alert (or d isorientated) and NPO = 25 mL Dose if unconscious / not alert = 50 mL Give first dose for initial blood glucose less than 70 mg/dL. If blood glucose at 15 minute recheck is less than or equal to 100 mg/dL continue to administer carbohydrate treatment every 15 minutes, as needed, based on blood glu cose and assessment parameters until blo od glucose level is above 100 mg/dL. Vesicant. For ordered doses up to 25 g, give IV Push undiluted. Give each 5g over 1 minute.
Or glucagon injection 1 mgJump to med 1 mg, Subcutaneous, EVERY 15 MIN PRN, lo w blood sugar, May repeat x 1 only, Starting Sun12/16/19 at 0050
May give SQ or IM. ONLY use glucagon IF patient has NO IV access AND is UNABLE to swallo w AND blood glucose is LESS than or EQUA L to 50 mg/dL. If ordered IV, give IV Push over 1 minute. Reconstitute with 1mL sterile water.
Group 3: LORazepam (ATIVAN) tablet 1-2 mgJump to med 1-2 mg, Oral, EVERY 30 MIN PRN, other, p er CIWA-Ar score., Starting Sun12/16/19 at 0050
Oral dosing is the preferred route of administration. Dose according to CIWA-Ar score: For CIWA-Ar Score LESS THAN OR EQU AL TO 7: ~ NO LORazepam (ATIVAN) is to be administered and ~ repeat CIWA-Ar scale in 4 hours and PRN For CIWA-Ar Score 8-12:&nb sp;~ give LORazepam (ATIVAN) 1 mg PO or IV and ~ repeat CIWA-Ar scale in 1 hour For CIWA-Ar Score 13-15: ~ give LORazepam (ATIVAN) 2 mg PO or IV ~ and repeat CIWA-Ar scale in 30 minutes& nbsp;For CIWA-Ar Score GREATER THAN OR EQUAL TO 16: ~ give LORazepam (ATIVAN) 2 mg PO or IV and ~ repeat CIWA-Ar scale in 30 minutes&nbs p;Doses should be withheld for nystagmus , sedation, ataxia, dysarthria or respiratory rate less than 12. If dose is being held more than once, provider must be notified.
Or LORazepam (ATIVAN) injection 1-2 mgJump to med 1-2 mg, Intravenous, EVERY 30 MIN PRN, o ther, per CIWA-Ar score, Starting Sun12/16/19 at 0050
Oral dosing is the preferred route of administration. Dose according to CIWA-Ar score: For CIWA-Ar Score LESS THAN OR EQUAL TO 7: ~ NO LORazepam (ATIVAN) is to be administered and ~ repeat CIWA-Ar scale in 4 hours and PRN For CIWA-Ar Score 8-12:& amp;nbsp;~ give LORazepam (ATIVAN) 1 mg PO or IV and ~ repeat CIWA-Ar scale in 1 hour For CIWA-Ar Score 13-15: ~ give LORazepam (ATIVAN) 2 mg PO or IV& nbsp;~ and repeat CIWA-Ar scale in 30 mi nutes For CIWA-Ar Score GREATER THAN OR EQUAL TO 16: ~ give LORazepam (ATIVAN) 2 mg PO or IV and ~ repeat CIWA-Ar scale in 30 minutes&a mp;nbsp;Doses should be withheld for nys tagmus, sedation, ataxia, dysarthria or respiratory rate less than 12. If dose is being held more than once, provider must be notified. This drug may cau se significant respiratory depression. M onitor respiratory status and vital signs carefully for 1 hour after each dose.
Group 4: ondansetron (ZOFRAN-ODT) ODT tab 4 mgJump to med 4 mg, Oral, EVERY 6 HOURS PRN, nausea, v omiting, Starting 12/16/19 at 0050
This is Step 1 of nausea and vomiting management. If nausea not resolved in 15 minutes, go to St ep 2 prochlorperazine (COMPAZINE). Do no t push through foil backing. Peel back foil and gently remove. Place on tongue immediately. Administration with liquid unnecessary With dry hands, peel b ack foil backing and gently remove table t. Do not push oral disintegrating tablet through foil backing. Administer immediately on tongue and oral disintegrating tablet dissolves in seconds, then swallow with saliva. Liquid not required.
Or ondansetron (ZOFRAN) injection 4 mgJump to med 4 mg, Intravenous, EVERY 6 HOURS PRN, na usea, vomiting, Administer over 2-5 Minutes, Starting 12/16/19 at 0050
This is Step 1 of nausea and vomiting management. If nausea not resolved in 15 minutes, go to Step 2 prochlorperazine (COMPAZINE). Irritant. For ordered IV doses 0.1-4 mg, give IV Push undiluted over 2-5 minutes.
Group 5: senna-docusate (SENOKOT-S/PERICOLACE) 8.6-50 MG per tablet 1 tabletJump to med 1 tablet, Oral, 2 TIMES DAILY PRN, const ipation, Starting Sun12/16/19 at 0050
If no bowel movement in 24 hours, increase to 2 tablets PO. Hold for loose stools. This is the first step of a three step const ipation treatment. Hold for loose stools.
Or senna-docusate (SENOKOT-S/PERICOLACE) 8.6-50 MG per tablet 2 tabletJump to med 2 tablet, Oral, 2 TIMES DAILY PRN, const ipation, Starting Sun12/16/19 at 0050
Hold for loose stools. This is the first step of a three step constipation treatment. Hold for loose stools.
documented in this encounter Care Teams City Council Member Relationship Specialty Start Date End Date Antonio Cummings MD PCP - General Family Practice 02/17/11 12/15/19 [facility] PCP - General 12/16/19 [facility] [address] [place] [id number] documented as of this encounter
--- OUTSIDE RECORDS SUMMARY | 2022-02-24 07:13 | XMS_ITS | Encounter Summary ---
:1935 Author Organization [place] Address [facility] [place] [address] Care Team Providers Name Role Phone Unavailable Primary Care Provider Unavailable Encounter Details Date Type Department Care Team Description 02/27/2008 Historic Results [facility] Katrin Cummings MD [address] [id number] [phone] Social History Tobacco Use Types Packs/Day Years Used Date Smoking Tobacco: Never Assessed Sex Assigned at Date Recorded Not on file documented as of this encounter Plan of Treatment Not on filedocumented as of this encounter Procedures Procedure Name Priority Date/Time Associated Diagnosis Comme nts GLUCOSE BY METER Routine 02/27/2008 7:42 AM Resul ts for this CDT procedure are i n the results section. documented in this encounter Results (ABNORMAL) Glucose by meter (02/27/2008 7:42 AM CDT) P athologist Signature Glucose 192 (H) 60 - 99 MISYS mg/dL Specimen Anatomical Collection Method Collection Time Receive d Time (Source) Location / / Volume Laterality 02/27/2008 7:42 AM 8 7:50 CDT AM CDT [facility] - ALL POCT Performing Organization Address City/State/ZIP Code Phon e Number MISYS documented in this encounter Visit Diagnoses Not on filedocumented in this encounter
--- OUTSIDE RECORDS SUMMARY | 2022-02-24 07:13 | XMS_ITS | Encounter Summary ---
:1935 Author Organization [place] Address [address] [facility] [place] [address] Care Team Providers Name Role Phone Antonio Cummings MD Primary Care Provider Encounter Details Date Type Department Care Team Description 12/20/2009 Historic Results [facility] Unknown, [facility] [address] [id number] Social History Tobacco Use Types Packs/Day Years Used Date Smoking Tobacco: Never Assessed Sex Assigned at Date Recorded Not on file documented as of this encounter Plan of Treatment Not on filedocumented as of this encounter Procedures Procedure Name Priority Date/Time Associated Diagnosis Comme nts ECHO CARDIAC - HIM SCAN 12/20/2009 12:00 AM CDT - ARCHIVE documented in this encounter Results ECHO CARDIAC - HIM SCAN - ARCHIVE (12/20/2009 12:00 AM CDT) Anatomical Region Laterality Modality Echocardiography Specimen (Source) Anatomical Location Collection Method / Collectio n Time Received Time / Laterality Volume 12/20/2009 Narrative This result has an attachment that is no t available. Provider Scan CV ECHO ORDERABLES documented in this encounter Visit Diagnoses Not on filedocumented in this encounter Care Teams Cable Splicing Technician Relationship Specialty Start Date End Date Antonio Cummings MD PCP - General Family Practice 02/17/11 12/15/19 documented as of this encounter
--- OUTSIDE RECORDS SUMMARY | 2022-02-24 07:13 | XMS_ITS | Encounter Summary ---
:1935 Author Organization [place] Address [facility] [place] [address] Care Team Providers Name Role Phone Antonio Cummings MD Primary Care Provider Reason for Visit Reason Comments Facial Laceration Patient was bending over to pet a cat and tipped over, striking his face, laceration to his nose and lip Encounter Details Date Type Department Care Team Description 02/17/2011 - Emergency [facility] Dion Pacheco oumar laceration; 02/18/2011 [facility] Emergency MD Ezra Closed head injury Dept [facility] [address] [place], [place] [address] [facility] [id number] [place] [address] [phone] (Wo rk) Social History Tobacco Use Types Packs/Day Years Used Date Smoking Tobacco: Former Alcohol Use Standard Drinks/Week Comments Yes 0.8 (1 standard drink = 0.6 oz pure alco hol) Sex Assigned at Date Recorded Not on file documented as of this encounter Last Filed Vital Signs Vital Sign Reading Time Taken Comments Blood Pressure 138/78 02/17/2011 11:59 PM CDT Pulse 75 02/17/2011 11:44 PM CDT Temperature 36.5 ??C (97.7 ??F) 02/17/2011 11:44 PM CDT Respiratory Rate 18 02/17/2011 11:59 PM CDT Oxygen Saturation 99% 02/17/2011 11:59 PM CDT Inhaled Oxygen Concentration - - Weight 113.4 kg (250 lb) 02/17/2011 9:56 PM CDT Height 182.9 cm (6') 02/17/2011 9:56 PM CDT Body Mass Index 33.91 02/17/2011 9:56 PM CDT documented in this encounter Discharge Instructions Discharge InstructionsDion Pacheco MD - 02/17/2011 11:41 PM CDT Images from the original note were not included. Home Back SP Please make an appointment to follow up with your pick up driver in 5 days for removal of sutures, or earlier if not improving and return to the ED immediately if your symptoms worsen in any way, especially if you have any nausea or vomiting or headache or abnormal behavior. LACERATION, FACE (suture or tape) A??laceration is a cut through the skin. This will require stitches if it is deep. Minor cuts may betreated with surgical tape (???Steri Strips?? ). HOME CARE: 1. If a bandage was applied and it becomes wet or dirty, replace it. Otherwise, leave it in place for the first 24 hours, then change it once a day or as directed. 2. If sutures were used, clean the wound daily: ?? After removing the bandage, wash the area with soap and water. Use a wet cotton swab (Q tip) to loosen and remove any blood or crust that forms. ?? After cleaning, apply a thin layer of Polysporin or Bacitracin ointment. This will keep the woundclean and make it easier to remove the stitches. Reapply a fresh bandage. ?? You may remove the bandage to shower as usual after the first 24 hours, but do not soak the area in water (no swimming) until the sutures are removed. 3. If Steri-Strips were used, keep the area clean and dry. If it becomes wet, blot it dry with a towel. 4. You may use acetaminophen (Tylenol) or ibuprofen (Motrin, Advil) to control pain, unless another pain medicine was prescribed. [NOTE: If you have chronic liver or kidney disease or ever had a stomach ulcer or GI bleeding, talk with your doctor before using these medicines.] FOLLOW UP: Most facial cuts heal in five days with no problem. However, even with proper treatment, a wound infection sometimes occurs. Therefore, check the wound daily for the warning signs listed below. Stitches should not be left in the face for more than five days; otherwise, permanent stitch reyes may form.If Steri-Strips were used, you may remove them yourself after five days, if they have not fallen offby then. GET PROMPT MEDICAL ATTENTION if any of the following occur: ?? Increasing pain in the wound ?? Redness, swelling or pus coming from the wound ?? If sutures come apart or fall out before 5 days ?? If the Steri-Strips fall off before 5 days, or the wound edges reopen ?? Fever over 100.0??F (37.8??C) oral, or over 101.0??F (38.3??C) rectal ?? Bleeding not controlled by direct pressure ?? [id number] [facility], [address] [place] [address]. All rights reserved. This information is not intended as a substitute for professional medical care. Always follow your healthcare professional's instructions. documented in this encounter Medications at Time of Discharge Medication Sig Dispensed Refills Start Date End Date allopurinol (ZYLOPRIM) Take 300 mg by mouth 0 300 MG tablet daily. aspirin 81 MG tablet Take 1 tablet by 0 mouth daily. atenolol (TENORMIN) 50 MG Take 50 mg by mouth 0 tablet daily. FISH OIL 0 lisinopril-hydrochlorothi Take 1 tablet by 0 azide mouth daily. (PRINZIDE,ZESTORETIC) 20-25 MG per tablet Omeprazole 20 MG tablet Take 20 mg by mouth 0 daily. simvastatin (ZOCOR) 40 MG Take 40 mg by mouth 0 tablet At Bedtime. glipiZIDE (GLUCOTROL XL) Take 2.5 mg by mouth 0 12/16/2019 2.5 MG 24 hr tablet daily. documented as of this encounter ED Notes Dion Pacheco MD - 02/17/2011 11:46 PM CDT CHIEF COMPLAINT: Facial laceration. HISTORY OF PRESENT ILLNESS: Mat Alexandra is a 76-year-old gentleman who had a mechanical fall earlier today when he was leaning over to pet his cat. Said that he leaned over, lost his balance, fellforward on to the cement, hit his face, had no loss of consciousness, no nausea, vomiting afterwards. No headache, no neurologic symptoms. and daughter agree he has been acting normally since. He denies any dizziness or lightheadedness prior episode. No chest pain, nausea and vomiting or any other constitutional symptoms. ALLERGIES: None. MEDICATIONS: Omeprazole, allopurinol, aspirin, atenolol, glipizide, Prinzide and simvastatin. PAST MEDICAL HISTORY: Hypertension, reflux, gout, surgical history, GI surgery, colonoscopy. SOCIAL HISTORY: Admits to alcohol, no tobacco, no drugs. REVIEW OF SYSTEMS: No fevers, chills, night sweats, nausea, vomiting, diarrhea, constipation. No headache, no lightheadedness, no changes in vision. No changes in hearing. No chest pain or edema, no difficulty with breathing, no numbness or tingling. Remainder of review of systems are negative. PHYSICAL EXAMINATION: GENERAL: This is a healthy-appearing elderly gentleman in very good spirits. VITAL SIGNS: Temperature 97.7, pulse 73, respirations 22, blood pressure 140/77. HEENT: Head normocephalic with a stellate laceration over the bridge of his nose with no septal hematomas bilaterally and no deviation of the nose to one side or the other. Oropharynx is clear and moist. No intraoral injury. He does have an abrasion over his upper lip. Eyes: Extraocular motions are normal. Pupils are equal, round, reactive to light bilaterally. TMs are clear bilaterally. No hematomas. NECK: Supple, no meningismus, no cervical spinal tenderness. CARDIOVASCULAR: He has got normal rate and rhythm, no murmurs, rubs or gallops. PULMONARY: Chest separates normal, breath sounds normal, no stridor, no respiratory distress. ABDOMEN: Soft, bowel sounds normal. NEUROLOGIC: Intact. Cranial nerves intact. Moves all extremities without difficulty. MEDICAL DECISION MAKING: This is a 36-year-old gentleman with a head injury. Differential is concerning for cause of fall. States it was mechanical in nature, lost his balance. No presyncopal or syncopal symptoms making dangerous causes for fall unlikely. Tetanus was unknown, so we updated and the laceration was repaired without any difficulty and he was instructed for followup. There did not appear to be any foreign bodies. We decided not to do an x-ray. Discussed this with him and the chance of there being a foreign body causing an infection. He agreed that he did not require that at this time. PROCEDURE NOTE: Laceration repair. There is a 3 cm in total stellate laceration over the bridge of the nose. Anesthesia was obtained with lidocaine with epinephrine, 3 cc and wound was cleaned, explored. No obvious fractures, no foreign bodies and it was repaired with 5-0 nylon without complication. Five sutures were placed and the wound appeared intact with the exception of some minor abrasions. Thepatient tolerated the procedure well. There were no difficulties or complications. ASSESSMENT: Fall, laceration to nose. DISPOSITION: Follow up with primary care doctor in 5 days for removal of sutures. Return to the ED with any worsening symptoms, especially any dizziness, headache, nausea, vomiting or other signs of intracranial injury systems. DION PACHECO MD MT: #[id number] Name: MAT ALEXANDRA MRN: [id number] Account: [id number] : 1935 Visit Date: 02/17/2011 Document: [id number] Kaitlynn Puri RN - 02/17/2011 10:46 PM CDT Pt is a and o x 3 and had no loc and has not had any previous falls. Everett Banuelos RN - 02/17/2011 10:02 PM CDT Patient was bending down to pet a cat and tipped over, striking his face on the deck. Laceration to his nose and lip documented in this encounter Plan of Treatment Not on filedocumented as of this encounter Visit Diagnoses Diagnosis Facial laceration Open wound of face, unspecified site, wi thout mention of complication Closed head injury Head injury, unspecified documented in this encounter Administered Medications Inactive Administered Medications - up to 3 most recent administrations Medication Order MAR Action Action Date Dose Rate Site bacitracin 500 UNIT/GM ointment Given 02/17/2011 11:43 PM CDT Starting on Sun02/17/11 at 2338, For 1 dose, CODY FISHMAN: Cabinet Override documented in this encounter Active and Recently Administered Medications Times are shown in CDT. No Frequency Medication Order 02/16/2011 02/17/2011 02/18/2011 bacitracin 500 UNIT/GM ointment (COMPLETED) 2343 (Given - Provider: Cody Fishman) Starting Sun02/17/11 at 2338, For 1 dos e, CODY FISHMAN: Cabinet Override documented in this encounter Care Teams Graduate Assistant Athletic Trainer Relationship Specialty Start Date End Date Antonio Cummings MD PCP - General Family Practice 02/17/11 12/15/19 documented as of this encounter
--- OUTSIDE RECORDS SUMMARY | 2022-02-24 07:13 | XMS_ITS | Encounter Summary ---
:1935 Author Organization [place] Address [facility] [place] [address] Care Team Providers Name Role Phone Unavailable Primary Care Provider Unavailable Encounter Details Date Type Department Care Team Description 02/27/2008 Discharge Summary [facility] Greer Mcgarry, (Air Brakes Inspector) [facility] Results [address] [place] [address] (Wo rk) Social History Tobacco Use Types Packs/Day Years Used Date Smoking Tobacco: Never Assessed Sex Assigned at Date Recorded Not on file documented as of this encounter Progress Notes Greer Mcgarry - 05/26/2008 4:29 PM CONTINUITY EDITOR FINAL PREOPERATIVE DIAGNOSIS: Large sessile polyp. POSTOPERATIVE DIAGNOSIS: Large sessile polyp. SURGICAL INDICATIONS: This is a 73-year-old gentleman with a large sessile polyp noted on screeningcolonoscopy hepatic flexure and is 3.5 cm. It has been tattooed. He had several other polyps which were nonmalignant removed at the same setting of his colonoscopy. He has recommended now for right hemicolectomy. Therefore, on 02/21/2008, the patient underwent operative procedure including right hemicolectomy. This was done under general anesthesia with estimated blood loss of 100 cc. Intraoperative finding was that of a normal liver, negative lymph nodes clinically and 3 polyps in the mid ascendingand hepatic flexures (specimen open by pathology). The patient tolerated the procedure well and was t ransferred to recovery in stable condition. POSTOPERATIVE COURSE: The patient received appropriate perioperative antibiotic therapy (Invanz). The patient received IV pain medication initially after surgery until able to tolerate p.o. intake. Rocio had an epidural in place to assist with pain management. Postop day #1 hemoglobin 12.5 and thisremained stable. Postop day #2, the patient had a temperature spike to 101.1, but after that point he remained afebrile. On postop day #1, the patient was seen in consultation by Internal Medicine related to multiple medical issues including diabetes, hypertension, GERD, dyslipidemia and gout. Medication recommendations were given related to the patient being on n.p.o. status and they continued to follow the patient throughout the hospital course. The patient also did have an NG tube in initially after surgery until return of bowel activity on 02/23. On postop day #3, the patient did have some bowel sounds and was able to have the NG removed later in the day. The patient was ambulating well and onpostop day 4 was able to start p.o. intake. Over the following days, the patient continued to have slow return of bowel function and return to regular diet. By 02/27/2008, he was tolerating a regular diet, having bowel movements, having good urinary function and was ambulating independently. Patient was taking in minimal medication for pain management and was cleared for discharge to home by Surgery and Internal Medicine. DISCHARGE INSTRUCTIONS: Discharge instructions were given to the patient regarding activity, weightrestriction, care of the incision and use of discharge medication including Vicodin as needed for pain. The patient was recommended to follow up with Dr. Mcgarry in 2-3 weeks for regular postoperative check and to call her office prior to that point if he had other questions or concerns. The patient was also recommended to follow up with his primary physician in the future regarding ongoing followup of hypertension and diabetes, both were stable at the time of discharge. Final pathology report on surgical specimen of the right colon/colectomy revealed: 1. 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 2. Three separate smaller tubulovillous and tubular adenoma identified without evidence of high-grade dysplasia or malignancy. 3. Unremarkable appendix. 4. Surgical margins negative for adenomatous change and malignancy. 5. Benign lymph nodes x17. Electronically signed on 05/26/2008 16:28 by GREER MCGARRY MD As dictated by CHRISTOPHER DO PA-C MT: [id number] Name: MAT ALEXANDRA MRN: [id number] Account: [id number] : 1935 Admit Date: [id number] Discharge Date: 02/27/2008 Document: [id number] cc: Fredrick Mireles MD INUITY EDITOR documented in this encounter Plan of Treatment Not on filedocumented as of this encounter Visit Diagnoses Not on filedocumented in this encounter
--- OUTSIDE RECORDS SUMMARY | 2022-02-24 07:13 | XMS_ITS | Clinical Summary ---
:1935 Author Organization [place] Address [address] [facility] [place] [address] Care Team Providers Name Role Phone [facility] Clin[facility]- Allergies No known active allergies Medications Medication Sig Dispensed Refills Start Date End Date Status aspirin 81 MG tablet Take 1 tablet by 0 Active mouth daily. lisinopril-hydrochloro Take 1 tablet by 0 Active thiazide mouth daily. (PRINZIDE,ZESTORETIC) 20-25 MG per tablet atenolol (TENORMIN) 50 Take 50 mg by 0 Active MG tablet mouth daily. allopurinol (ZYLOPRIM) Take 300 mg by 0 Active 300 MG tablet mouth daily. simvastatin (ZOCOR) 40 Take 40 mg by 0 Active MG tablet mouth At Bedtime. Omeprazole 20 MG Take 20 mg by 0 Active tablet mouth daily. FISH OIL 0 Active acetaminophen Take 2 tablets 0 12/16/2019 Active (TYLENOL) 325 MG (650 mg) by mouth tabletIndications: every 4 hours as Abrasion of right needed for mild knee, initial pain encounter thiamine (B-1) 100 MG Take 1 tablet (100 30 tablet 0 0 Active tabletIndications: mg) by mouth daily Alcoholic intoxication Future refills by without complication PCP Dr. Higgins () [facility] with phone number [phone]. glucose (BD GLUCOSE) 4 Take 1 tablet by 10 tablet 0 12/16/2019 Active g chewable mouth every hour tabletIndications: as needed for low Hypoglycemia blood sugar (For low blood sugars under 80) Please recheck your blood sugar after taking this to make sure it is coming up. Active Problems Problem Noted Date Hypoglycemia 12/16/2019 Immunizations Name Administration Dates Next Due TD (ADULT, 7+) 02/17/2011 Social History Tobacco Use Types Packs/Day Years Used Date Smoking Tobacco: Former Alcohol Use Standard Drinks/Week Comments Yes 0.8 (1 standard drink = 0.6 oz pure alco hol) Sex Assigned at Date Recorded Not on file Last Filed Vital Signs Vital Sign Reading [...] Mass Index 33.61 12/16/2019 12:54 AM CDT Plan of Treatment Health Maintenance Due Date Last Done Comments ADVANCE CARE PLANNING 1935 ANNUAL REVIEW OF HM ORDERS 1935 HEPATITIS B IMMUNIZATION (1 1935 of 3 - 3-dose series) COVID-19 Vaccine (#1) 1935 FALL RISK ASSESSMENT 01/06/2001 MEDICARE ANNUAL WELLNESS 01/06/2001 VISIT ZOSTER IMMUNIZATION (3 of 08/21/2018 06/26/2018, 01/22/2017 3) DTAP/TDAP/TD IMMUNIZATION 02/17/2021 02/17/2011, 01/26/2009 (3 - Td or Tdap) PHQ-2 (once per calendar 04/30/2021 year) INFLUENZA VACCINE (#1) 2021 04/12/2019, 02/19/2017, 03/15/2016, Additional history exists Pneumococcal Vaccine: 65+ Completed 02/03/2015, 01/28/2015 , Years 01/26/2009 IPV IMMUNIZATION Aged Out No longer eligi ble based on patient 's age to complete this topic MENINGITIS IMMUNIZATION Aged Out No longe r eligible based on patient 's age to complete this topic Insurance Payer Benefit Plan / Subscriber ID Effective Phone Address T ype Group Dates MEDICARE MEDICARE [id number] 2010-Prese [phone] ATTN ALISHA MS Medicare nt 40 [address] [facility] [place] [address] BCBS BCBS OF [place] [id number] 2016-Prese [phone] [address] [address] Indemnity nt [address] [place] [address] Advance Directives For more information, please contact: [phone] Latest Code Status on File Code Status Date Activated Date Inactivated Comments Full Code 12/16/2019 12:50 AM 12/16/2019 12:42 PM All basic and advanced life-sustaining interventions are performed as arminda ropriate Question Answer Comments Code status determined by: Discussion with patient/ legal de cision maker Care Teams Hat Brusher Machine Relationship Specialty Start Date End Date [facility] And PCP - General 12/16/19 [facility]- [address] [place] [address]
--- OUTSIDE RECORDS SUMMARY | 2022-02-24 07:13 | XMS_ITS | Encounter Summary ---
:1935 Author Organization [place] Address [facility] [place] [address] Care Team Providers Name Role Phone Unavailable Primary Care Provider Unavailable Encounter Details Date Type Department Care Team Description 02/26/[address] [facility] Katrin Cummings MD [address] [id number] [phone] Social History Tobacco Use Types Packs/Day Years Used Date Smoking Tobacco: Never Assessed Sex Assigned at Date Recorded Not on file documented as of this encounter Plan of Treatment Not on filedocumented as of this encounter Procedures Procedure Name Priority Date/Time Associated Diagnosis Comme nts GLUCOSE BY METER Routine 02/26/2008 8:55 PM Resul ts for this CDT procedure are i n the results section. GLUCOSE BY METER Routine 02/26/2008 4:34 PM Resul ts for this CDT procedure are i n the results section. GLUCOSE BY METER Routine 02/26/2008 11:34 AM Resu lts for this CDT procedure are i n the results section. GLUCOSE BY METER Routine 02/26/2008 7:39 AM Resul ts for this CDT procedure are i n the results section. CREATININE Routine 02/26/2008 6:33 AM Results f or this CDT procedure are i n the results section. GLUCOSE BY METER Routine 02/26/2008 3:45 AM Resul ts for this CDT procedure are i n the results section. documented in this encounter Results (ABNORMAL) Glucose by meter (02/26/2008 8:55 PM CDT) P athologist Signature Glucose 134 (H) 60 - 99 MISYS mg/dL Specimen Anatomical Collection Method Collection Time Receive d Time (Source) Location / / Volume Laterality 02/26/2008 8:55 PM 8 CDT 10:00 PM CDT Greer Cummings MD LAB - [place] POCT Performing Organization Address City/State/ZIP Code Phon e Number MISYS (ABNORMAL) Glucose by meter (02/26/2008 4:34 PM CDT) P athologist Signature Glucose 122 (H) 60 - 99 MISYS mg/dL Specimen Anatomical Collection Method Collection Time Receive d Time (Source) Location / / Volume Laterality 02/26/2008 4:34 PM 8 CDT 10:00 PM CDT Greer Cummings MD LAB - [place] POCT Performing Organization Address City/[facility]/ZIP Code Phon e Number MISYS (ABNORMAL) Glucose by meter (02/26/2008 11:34 AM CDT) P athologist Signature Glucose 188 (H) 60 - 99 MISYS mg/dL Specimen Anatomical Collection Method Collection Time Receive d Time (Source) Location / / Volume Laterality 02/26/2008 11:34 02/26/2008 AM CDT 11:45 AM CDT rGeer Cummings MD LAB - ALL POCT Performing Organization Address City/[facility]/ZIP Code Phon e Number MISYS (ABNORMAL) Glucose by meter (02/26/2008 7:39 AM CDT) P athologist Signature Glucose 155 (H) 60 - 99 MISYS mg/dL Specimen Anatomical Collection Method Collection Time Receive d Time (Source) Location / / Volume Laterality 02/26/2008 7:39 AM 8 7:45 CDT AM CDT Greer Cummings MD LAB - [place] POCT Performing Organization Address City/[facility]/ZIP Code Phon e Number MISYS Creatinine (02/26/2008 6:33 AM CDT) P athologist Signature Creatinine 0.83 0.66 - 1.25 MISYS mg/dL Comment: New IDMS-traceable calibration beginning 08/29/07 GFR Estimate >90 >60 mL/min/1.7m2 MISYS GFR Estimate If Black >90 >60 mL/min/1.7m2 M ISYS Specimen (Source) Anatomical Collection Method Collection Time Re ceived Time Location / / Volume Laterality 02/26/2008 6:33 AM 8 CDT Provider Unknown LAB - BLOOD ORDERABLES Performing Organization Address City/State/ZIP Code Phon e Number MISYS (ABNORMAL) Glucose by meter (02/26/2008 3:45 AM CDT) P athologist Signature Glucose 164 (H) 60 - 99 MISYS mg/dL Specimen Anatomical Collection Method Collection Time Receive d Time (Source) Location / / Volume Laterality 02/26/2008 3:45 AM 8 3:50 CDT AM CDT Greer Cummings MD LAB - [place] POCT Performing Organization Address City/State/ZIP Code Phon e Number MISYS documented in this encounter Visit Diagnoses Not on filedocumented in this encounter
--- OUTSIDE RECORDS SUMMARY | 2022-02-24 07:13 | XMS_ITS | Encounter Summary ---
:1935 Author Organization [place] Address [facility] [place] [address] Care Team Providers Name Role Phone Unavailable Primary Care Provider Unavailable Encounter Details Date Type Department Care Team Description 02/26/2008 Historic Notes INTERFACED REPORT Interface, Transcript on, Social History Tobacco Use Types Packs/Day Years Used Date Smoking Tobacco: Never Assessed Sex Assigned at Date Recorded Not on file documented as of this encounter Progress Notes Interface, Basketball Commentator - 07/17/2010 2:30 PM CDT Patient Status - Diagnosis/Procedure Right hemicolectomy - Physical status Stable (s/s of potential complications absent or manageable) - Psychosocial status Stable Discharge Planning - Discharge From: [facility] - Patient Care Unit: MS2 - PCU - Discharge To: Home/Alternative home - Method of discharge: Wheel Chair - Transportation: Private Discharge Information - Discharge information Discharge instructions reviewed with pt/family/so; Prescriptions given - Accompanied by Spouse - Mode of Travel Wheelchair Medications and Prescriptions - Medications and Prescriptions given to patient Pt will fill Prescriptions scripts if needed. Support Services - Is home care No recommended? Special Care Needs and Instructions - Diet Instructions: easy to digest foods advance slowly, drink plenty of fluids avoid gas forming foods stay hydrated - Activity As tolerated. Do not lift greater than 10-15 Instructions: pounds for 1-2 weeks. Continue to walk for exercise. Ok to shower. Do not submerge incision in water (bathtub). - Report temp if 100.5 degrees F greater than: - Symptoms/Problems to 1. Increased temperature look for at home- 2. increased/uncontrolled abdominal pain, not call the physician controlled by pain medication about: 3. redness, swelling and/or drainage from incision 4. nausea/vomiting 5. no bm for 3 days, take OTC stool softeners if needed. - Who patient should Dr. Cummings call: - Phone number of [facility] [phone] patient should call: - Additional Check incision daily. Monitor for changes. instructions for wound care: - Additional Change dressing daily and when wet. instructions for dressings: - Is patient going home No with IV Catheter?: Follow Up Care - Physician/clinician Dr. Cummings name: - - When to see Follow up in 3 weeks. Call office to make an physician/clinician: appointment. JASMIN Glasgow (RN)[Signed 09:55] Authored: Patient Status, Discharge Information, Medications and Prescriptions, Support Services, Special Care Needs and Instructions, Follow Up Care GAY NEVES (RN)[Signed 07:13] Authored: Patient Status, Discharge Planning, Support Services, Special Care Needs and Instructions,Follow Up Care Interface, Basketball Commentator - 07/17/2010 2:29 PM CDT NUTRITION ASSESSMENT REASON FOR ASSESSMENT: Patient has been NPO and on Clear Liquid Diet for 5 days Nutritional status does not appear to be compromised at this time, however prolonged period of inadequate intake may put patient at nutritional risk. Weight greater than 100% IBW Weight stable No nutrition problem identified at this time Pt on clear liquids, eating well. Note in chart OK to adv diet if ok with surgery. Advance diet as tolerated per physician order Will re-evaluate in 7 days or sooner if condition changes [Signature] Author: HALINA PONCE (RD, LD) [Signed 13:58] documented in this encounter Plan of Treatment Not on filedocumented as of this encounter Visit Diagnoses Not on filedocumented in this encounter
--- OUTSIDE RECORDS SUMMARY | 2022-02-24 07:13 | XMS_ITS | Encounter Summary ---
:1935 Author Organization [place] Address [facility] [place] [address] Care Team Providers Name Role Phone Unavailable Primary Care Provider Unavailable Encounter Details Date Type Department Care Team Description 12/20/2009 Results Only INTERFACED REPORT Julio Cummings MD [facility] [address] [facility] [address] [place] [address] (Wo rk) Social History Tobacco Use Types Packs/Day Years Used Date Smoking Tobacco: Never Assessed Sex Assigned at Date Recorded Not on file documented as of this encounter Plan of Treatment Not on filedocumented as of this encounter Procedures Procedure Name Priority Date/Time Associated Diagnosis Comme formerly [facility] ECHO HEART Routine 12/20/2009 9:01 AM Result s for this XTHORACIC, CDT procedure are i n STRESS/REST the results section. documented in this encounter Results ECHO HEART XTHORACIC, STRESS/REST (12/20/2009 9:01 AM CDT) [facility] Method Time Signature [facility] Interpretation Summary RESULTS Normal stress echocardiogram without evidence of significant ischemia or infarction. PatientHeight: 72 in PatientWeight: 250 lbs SystolicPressure: 158 mmHg DiastolicPressure: 84 mmHg HeartRate: 96 bpm BSA 2.3 m^2 Baseline The patient is in normal sinus rhythm. Stage 1 hypertension at rest. Normal left ventricular wall motion. The visual ejection fraction is estimated at 55-60%. Stress The patient exhibited no chest pain during exercise. Exercise was stopped due to fatigue. Normal blood pressure response to exercise. Target Heart Rate was achieved. No arrhythmia noted. A treadmill exercise test according to the Alfred protocol wa s performed. A moderate workload was achieved. There was a maximum 1.0mm ST segment depression in the infer ior lead(s). There was a maximum 1.0mm ST segment depression in the later al lead(s). Time to recovery of ST segments was 3 to 5 minutes. Likely false positive stress EKG as stress echo is normal. Normal resting wall motion and no stress-induced wall motion abnormality. Left ventricular cavity size decreases with exercise. Global LV systolic function augments with exercise. Tricuspid Valve No tricuspid regurgitation. Aortic Valve No aortic regurgitation is present. Procedure Stress Echo Complete. Stress Results Protocol: ??Alfred Protocol Target HR: 125 bpm ?Maximum Predicted HR: 1 47 bpm Stage ?Duration(mm:ss) ??HR(bpm) ?? BP ?DOSE ??Comment ? 03:00 ?130 ? 154/70 ? 03:00 ?153 ? 180/70 ?MAX BP 180/70 RECOVERY ? 06:00 ?100 ? 142/70 ?RPP 27,540 Stress Duration: 06:00 mm:ss ??Recovery Time: 06:00 mm:ss Maximum Stress HR: 153 bpm ?METS: 7 Interpreting Physician: ??Ezra Bueno MD electronically signed on 12-20-2009 09:57:44 Anatomical Region Laterality Modality Other Specimen (Source) Anatomical Collection Method Collection Time Re ceived Time Location / / Volume Laterality 12/20/2009 9:01 AM CDT Antonio Cummings MD SPECIAL IMAGING STUDIES documented in this encounter Visit Diagnoses Not on filedocumented in this encounter
[2022-02-24 07:14] LABS: Troponin, Point-of-Care* 0.01 ng/ml (0.01-0.04)
--- OUTSIDE RECORDS SUMMARY | 2022-02-24 07:14 | XMS_ITS | Encounter Summary ---
:1935 Author Organization [place] Address [facility] [place] [address] Care Team Providers Name Role Phone Unavailable Primary Care Provider Unavailable Encounter Details Date Type Department Care Team Description 02/23/2008 Historic Results [facility] Katrin Cummings MD [address] [id number] [phone] Social History Tobacco Use Types Packs/Day Years Used Date Smoking Tobacco: Never Assessed Sex Assigned at Date Recorded Not on file documented as of this encounter Plan of Treatment Not on filedocumented as of this encounter Procedures Procedure Name Priority Date/Time Associated Diagnosis Comme nts GLUCOSE BY METER Routine 02/23/2008 8:01 PM Resul ts for this CDT procedure are i n the results section. GLUCOSE BY METER Routine 02/23/2008 4:27 PM Resul ts for this CDT procedure are i n the results section. GLUCOSE BY METER Routine 02/23/2008 11:20 AM Resu lts for this CDT procedure are i n the results section. GLUCOSE BY METER Routine 02/23/2008 7:17 AM Resul ts for this CDT procedure are i n the results section. GLUCOSE BY METER Routine 02/23/2008 4:17 AM Resul ts for this CDT procedure are i n the results section. GLUCOSE BY METER Routine 02/23/2008 12:03 AM Resu lts for this CDT procedure are i n the results section. documented in this encounter Results (ABNORMAL) Glucose by meter (02/23/2008 8:01 PM CDT) P athologist Signature Glucose 153 (H) 60 - 99 MISYS mg/dL Specimen Anatomical Collection Method Collection Time Receive d Time (Source) Location / / Volume Laterality 02/23/2008 8:01 PM 8 8:30 CDT PM CDT Greer Cummings MD LAB - [place] POCT Performing Organization Address City/State/[facility] Phon e Number MISYS (ABNORMAL) Glucose by meter (02/23/2008 4:27 PM CDT) P athologist Signature Glucose 151 (H) 60 - 99 MISYS mg/dL Specimen Anatomical Collection Method Collection Time Receive d Time (Source) Location / / Volume Laterality 02/23/2008 4:27 PM 8 4:35 CDT PM CDT Greer Cummings MD LAB - ALL POCT Performing Organization Address [facility] Phon e Number MISYS (ABNORMAL) Glucose by meter (02/23/2008 11:20 AM CDT) P athologist Signature Glucose 156 (H) 60 - 99 MISYS mg/dL Comment: RN/ notified Specimen Anatomical Collection Method Collection Time Receive d Time (Source) Location / / Volume Laterality 02/23/2008 11:20 02/23/2008 AM CDT 11:30 AM CDT Greer ORR - ALL POCT Performing Organization Address [facility] Phon e Number MISYS (ABNORMAL) Glucose by meter (02/23/2008 7:17 AM CDT) P athologist Signature Glucose 170 (H) 60 - 99 MISYS mg/dL Comment: RN/ notified Specimen Anatomical Collection Method Collection Time Receive d Time (Source) Location / / Volume Laterality 02/23/2008 7:17 AM 8 7:25 CDT AM CDT Greer Cummings MD LAB - [place] POCT Performing Organization Address City/State/ZIP Code Phon e Number MISYS (ABNORMAL) Glucose by meter (02/23/2008 4:17 AM CDT) P athologist Signature Glucose 156 (H) 60 - 99 MISYS mg/dL Specimen Anatomical Collection Method Collection Time Receive d Time (Source) Location / / Volume Laterality 02/23/2008 4:17 AM 8 4:30 CDT AM CDT Greer ORR - ALL POCT Performing Organization Address City/State/[facility] Code Phon e Number MISYS (ABNORMAL) Glucose by meter (02/23/2008 12:03 AM CDT) P athologist Signature Glucose 164 (H) 60 - 99 MISYS mg/dL Specimen Anatomical Collection Method Collection Time Receive d Time (Source) Location / / Volume Laterality 02/23/2008 12:03 02/23/2008 AM CDT 12:20 AM CDT Greer ORR - ALL POCT Performing Organization Address City/State/[facility] Code Phon e Number MISYS documented in this encounter Visit Diagnoses Not on filedocumented in this encounter
--- OUTSIDE RECORDS SUMMARY | 2022-02-24 07:14 | XMS_ITS | Encounter Summary ---
:1935 Author Organization [place] Address [facility] [place] [address] Care Team Providers Name Role Phone Unavailable Primary Care Provider Unavailable Encounter Details Date Type Department Care Team Description 02/19/2008 Historic Notes INTERFACED REPORT Interface, Transcript on, Social History Tobacco Use Types Packs/Day Years Used Date Smoking Tobacco: Never Assessed Sex Assigned at Date Recorded Not on file documented as of this encounter Progress Notes Interface, Finisher Machine - 07/17/2010 2:48 PM CDT General Information - How to be addressed Ed - Temporary living None required arrangements - Source of reliable Patient information - slot 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 - Can patient name a Yes Surrogate Decision Maker? (Not legally binding) - Surrogate Name: Kelly - Surrogate Number: - Would you like to No receive information about Advanced Directives? Health and Illness History - Reason for half of colon removed (right side) admission/chief complaint as stated by patient - Expected length of Day(s), 5-7 hospitalization - Describe previous Good general health - Previous reaction to No anesthesia - Prosthetic Implants None - Does the patient have No a VAD (Vascular Access Device)? Allergies ?? No Known Allergies;Active Substance Use - Tobacco Use None - Caffeine Use Yes - Caffeine Type Coffee - Caffeine Amount 1.5 pot - History of Alcohol Yes Use - Alcohol Type Liquor - Alcohol Frequency Daily - Alcohol Amount 1 - 2 drinks - History of street No drug/inhalant/ medication abuse Transfusion History - Blood No Avoidance/Restrictio_ ns - Previous blood No transfusion Review of Systems - Cardiac Problems Yes - Cardiac Hypertension; Elevated cholesterol Conditions/Symptoms - Pulmonary Problems No - Peripheral Vascular No Problems - Neuro Muscular No Problems - ENT Problems No - GI Problems Yes - GI polyp in colon Conditions/Symptoms - Problems No - Immune Problems No - Influenza vaccine Has received for this flu season - Pneumococcal Vaccine Previously immunized - Tetanus/Diphtheria Unknown - Recent Exposure to No Communicable Disease - Communicable Disease No History - Skin Problems Yes - Skin Piercing Conditions/Problems - Endocrine Problems Yes - Endocrine Diabetes: Type 2 Conditions/Symptoms - Treatment and Oral antidiabetic medications and diet; Checks Frequency of Blood blood glucose once daily Glucose Checks - Mental Health No Problems Cognitive Perceptual - Preferred Pain Scale Numerical 0-10 - Acceptable Comfort 5 is acceptable comfort level rating Level - History of Chronic No Pain - Alterations in No Sensation - Vision Problems No - Use of Sensory Yes Assistive Devices - Vision Assistive Glasses Devices - Reading Problems No - Speech/Communication No Problems - Changes in thought No Process/Behavior - Factors influencing No factors identified readiness to learn - Factors that impact No barriers identified ability to learn - Learning Preferences Prefers written material - Cultural Learning None Considerations - Developmental None Learning Considerations - Rastafari Learning None Considerations Activity-Exercise/Self Care - Ambulation 0 - Independent with ambulation - Transferring 0 - Independent with transfers - Toileting 0- Independent with toileting - Bathing 0- Independent with bathing - Dressing 0- Independent with dressing - Eating 0- Independent with eating - Swallowing none - Fall history within No history of falls last six months - Which of the above None functional risks had a recent onset or change? - Lives with Spouse - Describe living House environment - Any physical barriers Yes in home - Barriers in home Tub/shower is not walk in Nutrition/Metabolic - Diet Regular, Carbohydrate counting - Nutrition Risk Screen No risk indicators present - Dental Care Does not receive routine dental care - Dentures Yes - Denture Type Upper; Lower - Proper Fit of Dentures fit properly Dentures Sleep/Relaxation - Problems Sleeping No Role Relationships - QUESTION TO PATIENT: No. Are you now or have you ever been in a relationship where you have been abused physically, emotionally or sexually? - NURSE OBSERVATION: Is No there reasonable cause to believe the patient has been abused, assaulted, is self abusive, neglected or exploited? Coping-Stress Tolerance - Have you had a recent No major change/significant loss/stressor in your life Values/Beliefs/Spiritual Care - Would you like Does not wish to have anyone contacted pastoral care/clergy/business advisor notified? Mutuality/Individual Preferences - What information none would help us give you more personalized care? - What if any None limitations on visitors, TV or phone calls would you like Signatures BLAYNE HUFFMAN (RN)[Signed 12:16] Authored: General Information, Advance Directive, Health and Illness History, Allergies, Substance Use, Transfusion History, Review of Systems, Cognitive Perceptual, Activity-Exercise/Self Care, Nutrition/Metabolic, Sleep/Relaxation, Role Relationships, Coping-Stress Tolerance, Values/Beliefs/Spiritual Care, Mutuality/Individual Preferences MELISSA LERMA (ELI)[Signed 23:11] Authored: Review of Systems, Role Relationships documented in this encounter Plan of Treatment Not on filedocumented as of this encounter Visit Diagnoses Not on filedocumented in this encounter
--- OUTSIDE RECORDS SUMMARY | 2022-02-24 07:14 | XMS_ITS | Encounter Summary ---
:1935 Author Organization [place] Address [address] [place] [address]. [place] [address] Care Team Providers Name Role Phone Unavailable Primary Care Provider Unavailable Encounter Details Date Type Department Care Team Description 02/21/2008 Historic Results [facility] Katrin Mcgarry MD [address] [id number] [phone] Social History Tobacco Use Types Packs/Day Years Used Date Smoking Tobacco: Never Assessed Sex Assigned at Date Recorded Not on file documented as of this encounter Plan of Treatment Not on filedocumented as of this encounter Procedures Procedure Name Priority Date/Time Associated Diagnosis Comme nts GLUCOSE BY METER Routine 02/21/2008 9:20 PM Resul ts for this CDT procedure are i n the results section. GLUCOSE BY METER Routine 02/21/2008 5:11 PM Resul ts for this CDT procedure are i n the results section. HISTOPATHOLOGY Routine 02/21/2008 3:50 PM Results for this CDT procedure are i n the results section. GLUCOSE BY METER Routine 02/21/2008 12:49 PM Resu lts for this CDT procedure are i n the results section. documented in this encounter Results (ABNORMAL) Glucose by meter (02/21/2008 9:20 PM CDT) P athologist Signature Glucose 131 (H) 60 - 99 MISYS mg/dL Comment: RN/Dr notified Specimen Anatomical Collection Method Collection Time Receive d Time (Source) Location / / Volume Laterality 02/21/2008 9:20 PM 8 9:35 CDT PM CDT Marizol ORR - ALL POCT Performing Organization Address City/State/ZIP Code Phon e Number MISYS (ABNORMAL) Glucose by meter (02/21/2008 5:11 PM CDT) P athologist Signature Glucose 128 (H) 60 - 99 MISYS mg/dL Specimen Anatomical Collection Method Collection Time Receive d Time (Source) Location / / Volume Laterality 02/21/2008 5:11 PM 8 CDT 11:05 AM CDT Marizol ORR - ALL POCT Performing Organization Address City/[facility] Code Phon e Number MISYS Histopathology (02/21/2008 3:50 PM CDT) Component Value Ref Test Analysis Performed At [facility] gist Range Method Time Signature Copath Report CASE: [id number] ^ [facility] Patient Name: MAT ALEXANDRA MR#: [id number] Specimen #: [id number] Collected: 02/21/2008 Received: 02/22/2008 Reported: 02/24/2008 16:52 Ordering Phy(s): MARIZOL MCGARRY SPECIMEN(S): Right Colon FINAL DIAGNOSIS: Right colon, colectomy - 1. 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 2. ? Three separate smaller tubulovillous and tubular ad enomas identified without evidence of high grade dysplasia or malig marizol. 3. ? Unremarkable appendix. 4. ? Surgical margins negative for adenomatous change an d malignancy. 5. ? Seventeen benign lymph nodes (0/17). Electronically signed out by: Dion Martinez M.D. CLINICAL HISTORY: Mass. GROSS: The specimen, labeled right colon, consists of a segment o f right colon and distal ileum and includes appendix. ??The colon se gment measures approximately 21 cm to the ileocecalvalve in the fi xed state with another 4 cm of cecal pouch. ??The distal ileal portion measures about 6 cm to the ileocecal valve in the fixed state. ??The specimen includes abundant mesenteric fat. ??No terminal ileal lesion s are present. ??There arethree polypoid colonic lesions noted. ?? Two of these are small including one which is close to distal margin ??es timated to be 3 mm from the margin prior to removal of the margin julia. ??This polyp is about 7 mm in spheroid diameter. ??This is embedded in ca ssette #2. The second small polyp measures about 9.5 cm from the distal margin. ??It also is pedunculated and measures 7 mm in greatest diameter. ??This is embedded in cassette #3. ??The third much larger polypoid ma ss is 14 cm from the distal margin. It measures 2.9 ??x 1.[address] dimension arising out of a single thick fold. ??Serial sections longit udinally are made of this lesion and it is entirely embedded in cassettes 4 through 9. ??The appendix measures 7 cm in length and up to 0.9 cm i n greatest diameter. ??There is no inflammation noted on the surface an d the cross sections appear normal, with a pinpoint-sized lumen in the p roximal portion. ??[employer] sections of this are embedded in c assette 10. Possible nodes distal to the polypoid tumor are in cassettes 11 and 12, and possible nodes proximal to the polypoid tumor in cassett e 13. Cassette 1 contains the colonic and ileal margins taken perp endicular. Dr. SINHA/shobha INTRAOPERATIVE CONSULTATION: GROSS SPECIMEN CONSULTATION: Three polypoid lesions. ??Margins grossly negative (SILVIA). MICROSCOPIC: The largest polypoid mass is a tubulovillous adenoma with a small focus of high grade dysplasia estimated to account for less than 5 % of the polyp. ??No malignancy is identified. ??Three separate small er polyps were identified. ??These are also tubular and tubulovillous adeno mas with no evidence of high grade dysplasia. ??The smallest of these wa s not identified grossly, is sessile, and measures 0.1 cm. ??It is approximately 0.2 cm from the distal colonic resection brennen galindo. SILVIA/elder 02-24-08 TESTING LAB LOCATION: [address] ??[id number] COLLECTION SITE: Client: [facility] Location: MS2 (R) Specimen Anatomical Collection Method Collection Time Receive d Time (Source) Location / / Volume Laterality 02/21/2008 3:50 PM 8 4:53 CDT PM CDT Marizol Mcgarry MD LAB - COPATH SPECIAL DIAG OR DERABLES Performing Organization Address City/State/ZIP Code Phon e Number COPATH (ABNORMAL) Glucose by meter (02/21/2008 12:49 PM CDT) P athologist Signature Glucose 148 (H) 60 - 99 MISYS mg/dL Specimen Anatomical Collection Method Collection Time Receive d Time (Source) Location / / Volume Laterality 02/21/2008 12:49 02/24/2008 6:05 PM CDT AM CDT Marizol Mcgarry MD LAB - BEAKER POCT Performing Organization Address City/State/ZIP Code Phon e Number MISYS documented in this encounter Visit Diagnoses Not on filedocumented in this encounter
--- OUTSIDE RECORDS SUMMARY | 2022-02-24 07:14 | XMS_ITS | Clinical Summary ---
:1935 Author Organization [facility] [place] [address] Care Team Providers Name Role Phone Antonio Cummings MD Primary Care Provider Unavailable Allergies No known active allergies Medications Medication Sig Dispensed Refills Start End Status Date Date simvastatin (ZOCOR) 40 Take 40 mg by mouth at 0 Active mg tabletIndications: bedtime. Indications: hypercholesterolemia HYPERCHOLESTEROLEMIA allopurinol (ZYLOPRIM) Take 300 mg by mouth 0 Active 300 mg once daily. tabletIndications: gout Indications: GOUT omeprazole (PRILOSEC) Take 20 mg by mouth 0 Active 20 mg Delayed-Release once daily before a capsuleIndications: meal. Indications: gastroesophageal reflux GASTROESOPHAGEAL REFLUX disease aspirin (ECOTRIN) 81 mg Take 81 mg by mouth 0 Active enteric coated tablet once daily with a meal. acetaminophen (TYLENOL) Take 325-650 mg by 0 Active 325 mg mouth every 4 hours if tabletIndications: pain needed. Max acetaminophen dose: 4000mg in 24 hrs. Indications: Pain hydroCHLOROthiazide Take 12.5 mg by mouth 0 Active 12.5 mg capsule once daily. lisinopriL (PRINIVIL; Take 20 mg by mouth 0 Active ZESTRIL) 20 mg tablet once daily. ESCITALOPRAM OXALATE Take 5 mg by mouth at 0 Active ORAL bedtime. multivit-min/FA/lycopen Take 1 Tab by mouth. 0 Active /lutein (CENTRUM SILVER MEN ORAL) metoprolol succinate 50 Take 50 mg by mouth 0 Active mg CSpX once daily. gabapentin (NEURONTIN) Take 100 mg by mouth 3 0 Active 100 mg capsule times daily. multivit,thx,calcium,ir Take 1 Tablet by mouth 0 Active on,mins (MULTIVITAMIN 2 times daily. 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 Not asked How many drinks containing alcohol do you have on a typical Not asked day when you are drinking? How often do you have six or more drinks on one occasion? 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 Plan of Treatment Health Maintenance Due Date Last Done Comments Tdap 01/06/1946 Depression screening for age 12+ 1948 BMI (ht and wt on same day) for age 18+ 01/06/1954 Tetanus booster 1956 Zoster (shingles) series for age 50+ (1 of 2) 01/06/1986 Pneumococcal series for age 65+ (1 - PCV) 01/06/2001 COVID-19 vaccine series (2 - Pfizer series) 04/01/202102/28 Influenza for age 65+ 12/29/2021 Results Not on filefrom Last 3 Months Insurance Payer Benefit Plan / Subscriber ID Effective Dates Phone Addre ss Type Group MEDICARE PART B MEDICARE PART B [id number] 2000-Presen ATTN: CLAIMS - HB USE ONLY HB ONLY t [address] [place] [place] [address] MEDICARE PART A MEDICARE PART A [id number] 2000-Presen ATTN: CLAIMS - HB USE ONLY HB ONLY t [address] [place] [address] BLUE CROSS BLUE CROSS OF [id number] 2016-Presen [address] [place] Ordoñez [phone] Advance Directives Latest Code Status on File Code Status Date Activated Date Inactivated Comments Full Code 06/16/2021 7:49 AM 06/16/2021 11:49 AM Code Status Discussion: Reviewed Preferences Full Code 09/02/2020 9:40 AM 09/02/2020 1:41 PM Code Status Discussion: Discussed Full Code 06/03/2020 9:18 AM 06/03/2020 1:20 PM Code Status Discussion: Discussed Full Code 01/22/2020 8:44 AM 01/22/2020 4:02 PM Code Status Discussion: Discussed Full Code 12/12/2014 11:35 PM 12/13/2014 8:02 PM Care Teams It Risk And Assurance Senior Manager Relationship Specialty Start Date End Date Antonio Cummings MD PCP - General Family Practice 05/04/14
--- OUTSIDE RECORDS SUMMARY | 2022-02-24 07:14 | XMS_ITS | Continuity of Care Document ---
:1935 Author Organization [facility] Care Team Providers Name Role Phone [facility] Unavailable Unavailable Problems Combined list of problems from Department of [facility] and [facility] facilities. It does not include entries that were removed or entered in error. 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 Essential Active Condition [facility] hypertension HCS Gastro-esophageal Active Condition [facility] reflux disease HCS without esophagitis Hyperlipidemia Active Condition [facility] HCS Obstructive sleep Active Condition [facility] apnea of adult HCS Type 2 diabetes Active Condition [facility] mellitus without HCS complication Diagnosis: Active Diagnosis [facility] ICD-10-CM H90.3 HCS Sensorineural hearing loss, bilateralwith Provider Comments: Sensorineural hearing loss, bilateral Medications Combined list of outpatient medications from Department of [facility] and [facility] facilities. Medications provided include 1) outpatient medications from the last 15 months, and 2) patient-reported medications. Medication Details Route Status Patient Prescription Prescription Last Ordering Order Source Instructions Expires Number Dispense Provider Date Date ALLOPURINOL TAKE ONE ORALLY ACTIVE ABBY,BUTCH 01/18 / [place] 300MG TAB TABLET 2016 [facility] BY MOUTH [facility] EVERY DAY ASPIRIN TAKE ONE ORALLY ACTIVE ABBY,BUTCH 01/18/ [place] 81MG TAB,EC TABLET 2016 [facility] BY [facility]TH [facility] EVERY DAY ESCITALOPRA TAKE 5MG ORALLY ACTIVE ABBY,BUTCH 01/18 / [place] M TAB,ORAL BY MOUTH 2016 [facility] A EVERY HCS DAY GLIPIZIDE TAKE ONE ORALLY ACTIVE ABBY,BUTCH 01/18/ [place] 2.5MG TABLET 2016 [facility] TAB,SA BY MOUTH [facility] EVERY DAY LISINOPRIL TAKE ORALLY ACTIVE ABBY,BUTCH 01/18/ [place] 40MG TAB ONE-HALF 2016 [facility] TABLET [facility] BY MOUTH EVERY DAY METOPROLOL TAKE ORALLY ACTIVE ABBY,BUTCH 01/18/ [place] TARTRATE 50MG QAM 2016 [facility] TAB AND 25MG [facility] QPM BY MOUTH MULTIVITAMI TAKE ONE ORALLY ACTIVE ABBY,BUTCH 01/18 / [place] NS CAP/TAB TABLET 2016 [facility] BY MOUTH [facility] EVERY DAY OMEPRAZOLE TAKE 1 ORALLY ACTIVE ABBY,BUTCH [place] 20MG CAP,EC CAPSULE 2016 [facility] A BY MOUTH [facility] EVERY DAY SIMVASTATIN TAKE ORALLY ACTIVE ABBY,BUTCH [place] 80MG TAB ONE-HALF 2016 [facility] TABLET [facility] BY MOUTH AT BEDTIME Immunizations Combined list of available immunizations from the Department of Defense and Veterans Affairs facilities. Immunization Series Date Administered Site Reaction Lot CVX Drug St atus Comments Source Given By Number Code [employer] COVID-19 2 complet PFR; [place] (SETVI), 2020 ed [id number]; [facility] MRNA, LNP-S, 02 HCS PF, 30 1 MCG/0.3 ML DOSE COVID-19 1 complet PFR; [place] (SETVI), 2020 ed [id number]; [facility] M[facility], LNP-S, 02 HCS PF, 30 1 MCG/0.3 ML DOSE ZOSTER LIVE complet [employer] , [place] 2016 ed [id number], [facility] 02/22/18 HCS PNEUMOCOCCAL complet [facility] [place] CONJUGATE PCV 2014 ed [place] 13 HCS TDAP complet [place] 2009 ed [facility] [facility] PNEUMOCOCCAL complet [facility] [place] POLYSACCHARID 2008 ed [facility] PPV23 HCS Encounters Combined list of: 1) Encounters from 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 Location Location Encounter Encounter Reason Attending ADM DC Stat us Disposition Source Details Type Number For Provider Date Date Visit HEARING [id number] Adan SILVA,TH 11/03 [place] [facility] [id number] is: [facility] /2020 [facility] ICD-10- HCS ECKING CM H90.3 Sensori neural hearing loss, bilater al
with Provide r Comment s: Sensori neural hearing loss, bilater al HEARING [id number] Diagnos CANELOMELINDA 02/15 [place] [facility] [id number] is: [facility] FITTING/[facility] ICD-10- [facility] ECKING CM H90.3 Sensori neural hearing loss, bilrubens al
with Provide r Comment s: Sensori neural hearing loss, karri roca Social History Combined list of available smoking, tobacco, and other social history from Department of Defense andVeterans Affairs facilities. Social History Type Response Date Comment Source Tobacco smoking status FORMER TOBACCO USER 7Y 01/22/2017 [employer] NHIS OR GREATER
--- OUTSIDE RECORDS SUMMARY | 2022-02-24 07:14 | XMS_ITS | Encounter Summary ---
:1935 Author Organization [place] Address [facility] [place] [address] Care Team Providers Name Role Phone Unavailable Primary Care Provider Unavailable Encounter Details Date Type Department Care Team Description 02/24/2008 Historic Results [facility] Katrin Cummings MD [address] 5 [phone] Social History Tobacco Use Types Packs/Day Years Used Date Smoking Tobacco: Never Assessed Sex Assigned at Date Recorded Not on file documented as of this encounter Plan of Treatment Not on filedocumented as of this encounter Procedures Procedure Name Priority Date/Time Associated Diagnosis Comme nts GLUCOSE BY METER Routine 02/24/2008 8:50 PM Resul ts for this CDT procedure are i n the results section. GLUCOSE BY METER Routine 02/24/2008 5:20 PM Resul ts for this CDT procedure are i n the results section. GLUCOSE BY METER Routine 02/24/2008 12:55 PM Resu lts for this CDT procedure are i n the results section. GLUCOSE BY METER Routine 02/24/2008 8:03 AM Resul ts for this CDT procedure are i n the results section. GLUCOSE BY METER Routine 02/24/2008 4:17 AM Resul ts for this CDT procedure are i n the results section. GLUCOSE BY METER Routine 02/24/2008 12:02 AM Resu lts for this CDT procedure are i n the results section. documented in this encounter Results (ABNORMAL) Glucose by meter (02/24/2008 8:50 PM CDT) P athologist Signature Glucose 160 (H) 60 - 99 MISYS mg/dL Comment: RN/ notified Specimen Anatomical Collection Method Collection Time Receive d Time (Source) Location / / Volume Laterality 02/24/2008 8:50 PM 8 CDT 11:30 PM CDT [facility] ORR - ALL POCT Performing Organization Address City/State/[facility] Code Phon e Number MISYS (ABNORMAL) Glucose by meter (02/24/2008 5:20 PM CDT) P athologist Signature Glucose 147 (H) 60 - 99 MISYS mg/dL Comment: RN/ notified Specimen Anatomical Collection Method Collection Time Receive d Time (Source) Location / / Volume Laterality 02/24/2008 5:20 PM 8 5:25 CDT PM CDT [facility] OR[facility] - ALL POCT Performing Organization Address City/[facility] Phon e Number MISYS (ABNORMAL) Glucose by meter (02/24/2008 12:55 PM CDT) P athologist Signature Glucose 163 (H) 60 - 99 MISYS mg/dL Specimen Anatomical Collection Method Collection Time Receive d Time (Source) Location / / Volume Laterality 02/24/2008 12:55 02/24/2008 PM CDT 11:30 PM CDT [facility] - ALL POCT Performing Organization Address City/[facility] Phon e Number MISYS (ABNORMAL) Glucose by meter (02/24/2008 8:03 AM CDT) P athologist Signature Glucose 167 (H) 60 - 99 MISYS mg/dL Specimen Anatomical Collection Method Collection Time Receive d Time (Source) Location / / Volume Laterality 02/24/2008 8:03 AM 8 8:10 CDT AM CDT [facility]R - ALL POCT Performing Organization Address City/[facility] Phon e Number MISYS (ABNORMAL) Glucose by meter (02/24/2008 4:17 AM CDT) P athologist Signature Glucose 143 (H) 60 - 99 MISYS mg/dL Specimen Anatomical Collection Method Collection Time Receive d Time (Source) Location / / Volume Laterality 02/24/2008 4:17 AM 8 8:10 CDT AM CDT [facility] ORR - ALL POCT Performing Organization Address City/State/[facility] Code Phon e Number MISYS (ABNORMAL) Glucose by meter (02/24/2008 12:02 AM CDT) P athologist Signature Glucose 160 (H) 60 - 99 MISYS mg/dL Specimen Anatomical Collection Method Collection Time Receive d Time (Source) Location / / Volume Laterality 02/24/2008 12:02 02/24/2008 AM CDT 12:16 AM CDT [facility] ORR - ALL POCT Performing Organization Address City/State/ZIP Code Phon e Number MISYS documented in this encounter Visit Diagnoses Not on filedocumented in this encounter
--- OUTSIDE RECORDS SUMMARY | 2022-02-24 07:14 | XMS_ITS | Encounter Summary ---
:1935 Author Organization [place] Address [facility] 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 POSTOPERATIVE DIAGNOSIS: Large sessile polyp. PROCEDURE: Right hemicolectomy. ANESTHESIA: General. PREOPERATIVE MEDICATIONS: Invanz 1 gram IV. SURGEON: Nilay Mcgarry MD TRADE ANALYST: MERRICK Alexander INDICATIONS: Mat Alexandra is a 73-year-old gentleman with large sessile polyp noted on screening colonoscopy. This is at the hepatic flexure and is 3.5 cm. It has been tattooed. He had several other polyps, which worked nonmalignant, removed at the same setting. He is recommended now for right hemicolectomy. PROCEDURE: The patient was placed supine. A midline incision was made and the peritoneum entered. The right colon is palpably normal. Subtle soft mass in the hepatic flexure is noted as well as the tattoo. The lateral peritoneal reflection was taken down by cautery, and the proximal and distal resection margins were selected at the terminal ileum and the mid transverse, just proximal to the middle colic artery. The mesentery is scored, and the mesenteric vessels were taken down to the base by double ligation and division. Grossly, the nodes were negative. A [id number] functional end-to-end anastomosis was then performed with jluia and the mesenteric defect closed using running 3-0 Vicryl suture. The patient's incision was then copiously irrigated with Ancef solution and the incision closed using running double looped 0 PDS for fascia and Insorb julia for skin. The patient tolerated the procedure well and was transferred to recovery in good condition. ESTIMATED BLOOD LOSS: 100 mL. INTRAOPERATIVE FINDINGS: Normal liver, negative lymph nodes clinically and 3 polyps in the mid ascending and hepatic flexures (specimen opened by Pathology). Electronically signed on 04/10/2008 09:23 by NILAY MCGARRY MD MT: [id number] Name: MAT ALEXANDRA MRN: [id number] Account: [id number] : 1935 Procedure Date: 02/21/2008 Document: [id number] AL SCHEDULING COORDINATOR documented in this encounter Plan of Treatment Not on filedocumented as of this encounter Visit Diagnoses Not on filedocumented in this encounter
--- OUTSIDE RECORDS SUMMARY | 2022-02-24 07:14 | XMS_ITS | Encounter Summary ---
:1935 Author Organization [place] Address [address] [facility] [place] [address] Care Team Providers Name Role Phone Unavailable Primary Care Provider Unavailable Encounter Details Date Type Department Care Team Description 02/21/2008 Admission [facility]&P [facility] Araseli Mireles, (Fluid Power Mechanic) [facility] Results [address] [place] [address] (Wo rk) Social History Tobacco Use Types Packs/Day Years Used Date Smoking Tobacco: Never Assessed Sex Assigned at Date Recorded Not on file documented as of this encounter Progress Notes Interface, Fluid Power Mechanic - 03/30/2008 2:51 PM TEST CENTER MANAGER FINAL Edtorsten Alexandra is a 73-year-old man who had his first screening colonoscopy a short time ago. This showed a large polyp that was unresectable through the colonoscopy scope and he is now scheduled for ahemicolectomy. Other significant medical history includes hiatus hernia, hyperlipidemia, gastroesophageal reflux disease, hypertension, type 2 diabetes and gout. FAMILY HISTORY: Father age 68 of an myocardial infarction. Mother age 63 of female cancer. He has 7 siblings. Remainder of family history is unremarkable. SOCIAL HISTORY: He is with 4 children. He quit smoking in 2005. Alcohol occasional. 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 PAST MEDICAL HISTORY: Allergies: Denied. Hospitalization: Fractured left clavicle in the . MEDICATIONS: 1. Prilosec 20 mg 1 daily. 2. Zocor 40 mg a day. 3. Metformin 1000 mg b.i.d. 4. Allopurinol 300 mg daily. 5. Low strength aspirin daily. 6. Lisinopril 20/25 one daily. REVIEW OF SYSTEMS: Unremarkable. He has not noted blood in the stool or weight loss. PHYSICAL EXAMINATION: GENERAL: He is an overweight male in no acute distress. HEENT: Ears are clear. Pupils equal, round and react to light. EOMs intact. Nose, mouth and throat unremarkable. NECK: Supple without increased adenopathy and thyroid is not enlarged. CHEST: Clear. HEART: Regular rhythm without gallops or murmurs. ABDOMEN: Soft, nontender without organomegaly. External genitalia, rectal and prostate exams were done a month ago were normal and these are not repeated. Electrocardiogram today 02/17/08 is normal. The patient brings a copy with him. LABORATORY DATA: Today white count 6800, hemoglobin 14.2 grams percent, platelet count 219,000. Sodium 139, potassium 4.4. His last hemoglobin A1c in 11/2007 was 7.3% and recent fasting sugars are 150or less. IMPRESSION: 1. Hepatic flexure colon polyps. 2. Gastroesophageal reflux disease. 3. Diabetes (less than ideal control). 4. Hyperlipidemia. 5. Hypertension. 6. Okay for surgery. Electronically signed on 03/30/2008 14:50 by ARASELI MIRELES MD MT: [id number] Name: MAT ALEXANDRA MRN: [id number] Account: [id number] : 1935 Admitted: [id number] Document: [id number] CENTER MANAGER documented in this encounter Plan of Treatment Not on filedocumented as of this encounter Visit Diagnoses Not on filedocumented in this encounter
--- OUTSIDE RECORDS SUMMARY | 2022-02-24 07:14 | XMS_ITS | Encounter Summary ---
:1935 Author Organization [place] Address [facility] [place] [address] Care Team Providers Name Role Phone Unavailable Primary Care Provider Unavailable Encounter Details Date Type Department Care Team Description 02/25/2008 Historic Results [facility]3] Katrin Cummings MD [address] [phone] Social History Tobacco Use Types Packs/Day Years Used Date Smoking Tobacco: Never Assessed Sex Assigned at Date Recorded Not on file documented as of this encounter Plan of Treatment Not on filedocumented as of this encounter Procedures Procedure Name Priority Date/Time Associated Diagnosis Comme nts GLUCOSE BY METER Routine 02/25/2008 11:51 PM Resu lts for this CDT procedure are i n the results section. GLUCOSE BY METER Routine 02/25/2008 8:22 PM Resul ts for this CDT procedure are i n the results section. GLUCOSE BY METER Routine 02/25/2008 4:32 PM Resul ts for this CDT procedure are i n the results section. GLUCOSE BY METER Routine 02/25/2008 12:08 PM Resu lts for this CDT procedure are i n the results section. GLUCOSE BY METER Routine 02/25/2008 7:24 AM Resul ts for this CDT procedure are i n the results section. GLUCOSE BY METER Routine 02/25/2008 4:04 AM Resul ts for this CDT procedure are i n the results section. GLUCOSE BY METER Routine 02/25/2008 12:03 AM Resu lts for this CDT procedure are i n the results section. documented in this encounter Results (ABNORMAL) Glucose by meter (02/25/2008 11:51 PM CDT) P athologist Signature Glucose 151 (H) 60 - 99 MISYS mg/dL Specimen Anatomical Collection Method Collection Time Receive d Time (Source) Location / / Volume Laterality 02/25/2008 11:51 02/26/2008 PM CDT 12:06 AM CDT [facility] OR[facility] - ALL POCT Performing Organization Address City/State/ZIP Code Phon e Number MISYS (ABNORMAL) Glucose by meter (02/25/2008 8:22 PM CDT) P athologist Signature Glucose 154 (H) 60 - 99 MISYS mg/dL Specimen Anatomical Collection Method Collection Time Receive d Time (Source) Location / / Volume Laterality 02/25/2008 8:22 PM 8 8:45 CDT PM CDT [facility] ORR - ALL POCT Performing Organization Address City/State/[facility] Code Phon e Number MISYS (ABNORMAL) Glucose by meter (02/25/2008 4:32 PM CDT) P athologist Signature Glucose 158 (H) 60 - 99 MISYS mg/dL Comment: RN/Dr notified Specimen Anatomical Collection Method Collection Time Receive d Time (Source) Location / / Volume Laterality 02/25/2008 4:32 PM 8 4:45 CDT PM CDT [facility] ORR - ALL POCT Performing Organization Address City/[facility] [address]/ZIP Code Phon e Number MISYS (ABNORMAL) Glucose by meter (02/25/2008 12:08 PM CDT) P athologist Signature Glucose 187 (H) 60 - 99 MISYS mg/dL Specimen Anatomical Collection Method Collection Time Receive d Time (Source) Location / / Volume Laterality 02/25/2008 12:08 02/25/2008 PM CDT 12:15 PM CDT [facility] ORR - ALL POCT Performing Organization Address City/State/ZIP Code Phon e Number MISYS (ABNORMAL) Glucose by meter (02/25/2008 7:24 AM CDT) P athologist Signature Glucose 184 (H) 60 - 99 MISYS mg/dL Specimen Anatomical Collection Method Collection Time Receive d Time (Source) Location / / Volume Laterality 02/25/2008 7:24 AM 8 7:40 CDT AM CDT [facility] ORR - ALL POCT Performing Organization Address City/State/[facility] Code Phon e Number MISYS (ABNORMAL) Glucose by meter (02/25/2008 4:04 AM CDT) P athologist Signature Glucose 156 (H) 60 - 99 MISYS mg/dL Specimen Anatomical Collection Method Collection Time Receive d Time (Source) Location / / Volume Laterality 02/25/2008 4:04 AM 8 4:10 CDT AM CDT [facility] ORR - ALL POCT Performing Organization Address [facility] [address] [facility] Phon e Number MISYS (ABNORMAL) Glucose by meter (02/25/2008 12:03 AM CDT) P athologist Signature Glucose 149 (H) 60 - 99 MISYS mg/dL Specimen Anatomical Collection Method Collection Time Receive d Time (Source) Location / / Volume Laterality 02/25/2008 12:03 02/25/2008 AM CDT 12:10 AM CDT [facility] CARRIZALES POCT Performing Organization Address City/State/ZIP Code Phon e Number MISYS documented in this encounter Visit Diagnoses Not on filedocumented in this encounter
--- OUTSIDE RECORDS SUMMARY | 2022-02-24 07:14 | XMS_ITS | Encounter Summary ---
:1935 Author Organization [place] Address [facility] [place] [address] Care Team Providers Name Role Phone Unavailable Primary Care Provider Unavailable Encounter Details Date Type Department Care Team Description 02/25/2008 Historic Notes INTERFACED REPORT Interface, Transcript on, Social History Tobacco Use Types Packs/Day Years Used Date Smoking Tobacco: Never Assessed Sex Assigned at Date Recorded Not on file documented as of this encounter Progress Notes Interface, Monotype Keyboard Operator - 07/17/2010 2:33 PM CDT SH Visited patient per length of stay. Patient was alert and talkative, but expressed some pain. I offered services, but patient expressed no needs at this time. No further visits are planned. [Signature] Author: GAVIN RYAN (Warehouse Associate Incising Machine Operator) [Signed 10:40] documented in this encounter Plan of Treatment Not on filedocumented as of this encounter Visit Diagnoses Not on filedocumented in this encounter
--- OUTSIDE RECORDS SUMMARY | 2022-02-24 07:14 | XMS_ITS | Encounter Summary ---
:1935 Author Organization [place] Address [facility] [place] [address] Care Team Providers Name Role Phone Unavailable Primary Care Provider Unavailable Encounter Details Date Type Department Care Team Description 02/22/2008 Historic Results [facility] Katrin Cummings MD [address] [phone] Social History Tobacco Use Types Packs/Day Years Used Date Smoking Tobacco: Never Assessed Sex Assigned at Date Recorded Not on file documented as of this encounter Plan of Treatment Not on filedocumented as of this encounter Procedures Procedure Name Priority Date/Time Associated Comments Diagnosis GLUCOSE BY METER Routine 02/22/2008 8:47 PM Resul ts for this CDT procedure are i n the results section. GLUCOSE BY METER Routine 02/22/2008 4:23 PM Resul ts for this CDT procedure are i n the results section. GLUCOSE BY METER Routine 02/22/2008 11:26 Results for this AM CDT procedure are i n the results section. GLUCOSE BY METER Routine 02/22/2008 7:06 AM Resul ts for this CDT procedure are i n the results section. CBC WITH PLATELETS & Routine 02/22/2008 6:50 AM R esults for this DIFFERENTIAL CDT procedure are i n the results section. BASIC METABOLIC PANEL Routine 02/22/2008 6:50 AM Results for this CDT procedure are i n the results section. documented in this encounter Results (ABNORMAL) Glucose by meter (02/22/2008 8:47 PM CDT) P athologist Signature Glucose 154 (H) 60 - 99 MISYS mg/dL Comment: ELI/ notified Specimen Anatomical Collection Method Collection Time Receive d Time (Source) Location / / Volume Laterality 02/22/2008 8:47 PM 8 8:55 CDT PM CDT [facility] Cummings MD LAB - BEBAUTISTA POCT Performing Organization Address [facility] Phon e Number MISYS (ABNORMAL) Glucose by meter (02/22/2008 4:23 PM CDT) P athologist Signature Glucose 150 (H) 60 - 99 MISYS mg/dL Comment: ELI/ notified Specimen Anatomical Collection Method Collection Time Receive d Time (Source) Location / / Volume Laterality 02/22/2008 4:23 PM 8 4:30 CDT PM CDT [facility] Cummings MD LAB - ALL POCT Performing Organization Address [facility] Phon e Number MISYS (ABNORMAL) Glucose by meter (02/22/2008 11:26 AM CDT) P athologist Signature Glucose 183 (H) 60 - 99 MISYS mg/dL Comment: ELI/ notified Specimen Anatomical Collection Method Collection Time Receive d Time (Source) Location / / Volume Laterality 02/22/2008 11:26 02/22/2008 AM CDT 11:35 AM CDT [facility] ORR - ALL POCT Performing Organization Address [facility] Phon e Number MISYS (ABNORMAL) Glucose by meter (02/22/2008 7:06 AM CDT) P athologist Signature Glucose 139 (H) 60 - 99 MISYS mg/dL Comment: ELI/ notified Specimen Anatomical Collection Method Collection Time Receive d Time (Source) Location / / Volume Laterality 02/22/2008 7:06 AM 8 7:20 CDT AM CDT [facility] Cummings MD LAB - ALL POCT Performing Organization Address [facility] Phon e Number MISYS (ABNORMAL) CBC with platelets differential (02/22/2008 6:50 AM CDT) Patholo gist Method Time Signature MCV 95 78 - 100 MISYS fl MCH 31.6 26.5 - MISYS 33.0 pg MCHC 33.2 31.5 - MISYS 36.5 g/dL RDW 13.2 10.0 - MISYS 15.0 % WBC 4.9 4.0 - MISYS 11.0 10e9/L RBC Count 3.95 (L) 4.4 - 5.9 MISYS 10e12/L Hemoglobin 12.5 (L) 13.3 - MISYS 17.7 g/dL Hematocrit 37.7 (L) 40.0 - MISYS 53.0 % % Neutrophils 68 40 - 75 % MISYS % Lymphocytes 22 20 - 48 % MISYS % Monocytes 7 0 - 12 % MISYS % Eosinophils 3 0 - 6 % MISYS % Basophils 0 0 - 2 % MISYS Platelet Count 136 (L) 150 - 450 MISYS 10e9/L Absolute 3.3 1.6 - 8.3 MISYS Neutrophil 10e9/L Absolute 1.1 0.8 - 5.3 MISYS Lymphocytes 10e9/L Absolute 0.3 0.0 - 1.3 MISYS Monocytes 10e9/L Absolute 0.2 0.0 - 0.7 MISYS Eosinophils 10e9/L Absolute 0.0 0.0 - 0.2 MISYS Basophils 10e9/L Diff Method Automated MISYS Method Specimen (Source) Anatomical Collection Method Collection Time Re ceived Time Location / / Volume Laterality 02/22/2008 6:50 AM 8 CDT [facility] Cummings MD LAB - BLOOD ORDERABLES Performing Organization Address City/State/ZIP Code Phon e Number MISYS (ABNORMAL) Basic metabolic panel (02/22/2008 6:50 AM CDT) P athologist Signature Sodium 138 133 - 144 MISYS mmol/L Potassium 4.3 3.4 - 5.3 MISYS mmol/L Chloride 103 94 - 109 MISYS mmol/L Carbon Dioxide 29 20 - 32 MISYS mmol/L Glucose 139 (H) 60 - 99 MISYS mg/dL Urea Nitrogen 15 7 - 30 MISYS mg/dL Creatinine 1.06 0.66 - MISYS 1.25 mg/dL Comment: New IDMS-traceable calibration beginning 08/29/07 GFR Estimate 69 >60 mL/min/1.7m2 MISYS GFR Estimate If Black 83 >60 mL/min/1.7m2 M ISYS Calcium 7.7 (L) 8.5 - 10.4 mg/dL MISYS Anion Gap 6 6 - 17 mmol/L MISYS Specimen (Source) Anatomical Collection Method Collection Time Re ceived Time Location / / Volume Laterality 02/22/2008 6:50 AM 8 CDT [facility] Cummings MD LAB - BLOOD ORDERABLES Performing Organization Address City/State/ZIP Code Phon e Number MISYS documented in this encounter Visit Diagnoses Not on filedocumented in this encounter
[2022-02-24 07:16] LABS: Chloride* 103 mmol/L (96-114); Sodium* 137 mmol/L (135-149)
[2022-02-24 07:17] LABS: Potassium* 4.6 mmol/L (3.6-5.1)
[2022-02-24] MEDS: AZITHROMYCIN 250 MG TABLET 500 MG PO (07:17)
[2022-02-24] MEDS: METHYLPREDNISOLONE SOD SUCC 40 MG/ML 80 MG IVP (07:18)
[2022-02-24 07:19] LABS: Creatinine* 1.5 mg/dL (0.5-1.5); Est. Creatinine Clearance* 37.65; Estimated Glomerular Filt Rate 45 ml/min
[2022-02-24 07:20] LABS: Blood Urea Nitrogen* 25 mg/dL (7-30); Calcium* 8.4 mg/dL (8.4-10.6); Carbon Dioxide* 22 mmol/L (20-32); Glucose* 135 mg/dL (60-115)
[2022-02-24] MEDS: cefTRIAXone 1 GM in 0.9 % SODIUM CHLORIDE Mini-bag 100 ML IVPB (07:22)
[2022-02-24 07:23] LABS: C Reactive Protein* 0.7 mg/dL (0.5-1.0)
[2022-02-24 07:28] LABS: NT Pro B Type NatriureticPept* 357 PG/mL (0-450)
[2022-02-24 07:45] VITALS: O2SAT 98
[2022-02-24 08:10] LABS: PCR FLU A Negative PCR FLU A (Negative); PCR FLU B Negative PCR FLU B (Negative); PCR RSV Negative PCR RSV (Negative)
[2022-02-24 08:46] LABS: SARS PCR* POSITIVE SARS-CoV-2 (Negative)
[2022-02-24 08:50] LABS: Glucose, Point-of-Care* 150 mg/dl (60-115)
[2022-02-24 08:56] VITALS: BP 146/77; PULSE 86; RESP 20; O2SAT 98
[2022-02-24 09:00] VITALS: BP 153/77; PULSE 87; RESP 20; O2SAT 94
[2022-02-24] MEDS: ALBUTEROL SULFATE 2.5 MG/3 ML VIAL.NEB NEB (09:06)
--- NOTE | 2022-02-24 10:58 | ED.NURSE ---
up ambulating in [place]. sats held at 93-94%
[2022-02-24 11:36] VITALS: BP 141/63; PULSE 87; RESP 20; O2SAT 96
== END 2022-02-24 11:38 | disposition home or self-care (01) ==
PROVIDERS: Family Medicine; Emergency Provider Family Medicine; PCP Emergency Medicine
DX: J96.00 Acute respiratory failure, unspecified whether with hypoxia or hypercapnia (principal); J44.1 Chronic obstructive pulmonary disease with (acute) exacerbation
CPT/HCPCS: 36415; 80048; 82803; 82947; 82962; 83880; 85025; 86140; 87502; 87634; 87635; 93005; 94640; 96365; 96375; 96376; 99284; 99285; A9270; J0696; J2920

== ENCOUNTER 2022-03-07 12:50 | Outpatient (CLI) | payer MEDICARE, BC, SELFPAY ==
--- OUTSIDE RECORDS SUMMARY | 2022-03-07 12:55 | XMS_ITS | Encounter Summary ---
:1935 Author Organization [place] Address Formerly [facility], [facility] [place] [address] Care Team Providers Name Role Phone Antonio uCmmings MD Primary Care Provider [facility], [facility] Clinics- Reason for Referral Specialty Diagnoses / Procedures Referred By Contact Refer red To Contact Ivelisse Purvis PA-C [address] [place] [address] Referral ID Status Reason Start Date Expiration Date Visits Requ ested Visits Authorized Reason for Visit Reason Comments Fall Encounter Details Date Type Department Care Team Description 12/15/2019 - Emergency [facility] Anusha Barboza DO [facility] [address] [place] [address] Mucosal abnormality of stomach (Primary Dx); 12/16/2019 [place] Dave MD [address] [place] [address] Abrasion of face, initial encounter; Dept Alcoholic intoxication witho ut complication (H); [address] Hypoglycemia; [place] Adrenal nodul e (H); [id number] of the abdomen; [phone] Abrasion of rig ht knee, initial encounter [...] Purvis PA-C - 12/16/2019 10:36 AM CDT [facility] Discharge Summary Hospitalist Date of Admission: 12/15/2019 [...] Code Status Full Code Primary Care Physician [facility] INTERVAL HISTORY Patient has slight pain in [...] tests Follow up with primary care provider, [facility], within 7 days to evaluate medication change [...] by mouth daily Future refills by PCP [facility] with phone number [phone]., Disp-30 tablet,R-0, E-Prescribe CONTINUE these medications which [...] Narrative EXAM: CT HEAD W/O CONTRAST LOCATION: [facility] DATE/TIME: 12/15/2019 10:38 PM INDICATION: Head injury [...] EXAM: CT CERVICAL SPINE W/O CONTRAST LOCATION: [facility] DATE/TIME: 12/15/2019 10:39 PM INDICATION: Neck injury [...] EXAM: CT FACIAL BONES WITHOUT CONTRAST LOCATION: [facility] DATE/TIME: 12/15/2019 10:39 PM INDICATION: Facial injury [...] Narrative EXAM: CT CHEST/ABDOMEN/PELVIS W CONTRAST LOCATION: [facility] DATE/TIME: 12/15/2019 10:40 PM INDICATION: Trauma -???Chest, [...] Glucose): Type 1 and Type 2 Diabetes (Guinean) documented in this encounter Medications at Time [...] intoxication refills by PCP without complication (H) [facility] with phone number [phone]. documented as of this encounter Progress Notes Flor Casarez RN - 12/16/2019 10:10 AM CDT Per AM care rounds there are no CM/SW needs at this time. Will complete consult. Please call if needidentified. 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 Hypoglycemia 5. History of diabetes mellitus pxq-khcmzmw-fgftijtfk on sulfonylurea 6. Hypertension 7. CKD 8. GERD 9. Incidentally found with adrenal nodules [place] under observation. Continue to monitor her glucose [...] year old male with known history of fdt-yrdmjcf-hqtpxspif diabetes mellitus on sulfonylurea, hypertension, CKD, gouty [...] Narrative EXAM: CT HEAD W/O CONTRAST LOCATION: [facility] DATE/TIME: 12/15/2019 10:38 PM INDICATION: Head injury [...] EXAM: CT CERVICAL SPINE W/O CONTRAST LOCATION: [facility] DATE/TIME: 12/15/2019 10:39 PM INDICATION: Neck injury [...] EXAM: CT FACIAL BONES WITHOUT CONTRAST LOCATION: [facility] DATE/TIME: 12/15/2019 10:39 PM INDICATION: Facial injury [...] Narrative EXAM: CT CHEST/ABDOMEN/PELVIS W CONTRAST LOCATION: [facility] DATE/TIME: 12/15/2019 10:40 PM INDICATION: Trauma -???Chest, [...] documented in this encounter ED Notes Tyler Ascencio RN - 12/16/2019 12:10 AM CDT [facility] ED Nurse Handoff Report Mat Galvan is a 84 year old male ED Chief complaint: Fall . ED Diagnosis: Final diagnoses: Abrasion of face, initial encounter Alcoholic intoxication without complication (H) Hypoglycemia Allergies: No Known Allergies Code Status: Full Code Activity level - Baseline/Home: Independent. Activity Level - Current: Assist X 1. Lift room needed:No. Bariatric: No Parts Consultant Needed: No Isolation: No. Infection: Not Applicable. [...] sinus rhythm Normal ECG Rate 72 bpm. NV interval 148 ms. QRS duration 108 ms. [...] Type and Screen: A positive, antibody negative [facility] Procedure Note FAST (Focused Assessment with Sonography [...] Dr. Buchanan of the hospitalist service from [facility] regarding patient's presentation, findings, and plan of [...] observations and the provider's statements to me. [facility] EMERGENCY [facility] Kylie Barboza DO 12/16/19 [...] for discharge by consultants (if involved): No Loader Operator Nurse Safe discharge environment identified: No Barriers [...] Return to near baseline physical activity: Yes Loader Operator Nurse Safe discharge environment identified: Yes Barriers [...] Return to near baseline physical activity: Yes Loader Operator Nurse Safe discharge environment identified: Yes Barriers [...] SW consult): ind w/ Facility name:N/A salesperson yard goods: javi Mendoza Activity level at baseline: ind [...] LAB - BEAKER POCT Performing Organization Address City/State/[facility] Phon e Number FV POINT OF CARE [...] Organization Address City/[facility] Phon e Number FV POINT OF CARE TEST, GLUCOSE POINT OF CARE TEST, GLUCOSE (ABNORMAL) Basic metabolic panel (12/16/2019 8:04 AM CDT) Analysis Performed At Patho logist Time Signature Sodium 135 133 - 144 12/16/2019 [facility] mmol/L 8:22 AM [facility] Potassium 4.1 3.4 - 5.3 12/16/2019 [facility] mmol/L 8:22 AM [facility] Chloride 104 94 - 109 12/16/2019 [facility] mmol/L 8:22 AM [facility] Carbon Dioxide 27 20 - 32 12/16/2019 [facility] mmol/L 8:28 AM [facility] Anion Gap 4 3 - 14 12/16/2019 [facility] mmol/L 8:28 AM [facility] Glucose 67 (L) 70 - 99 12/16/2019 [facility] mg/dL 8:28 AM [facility] Urea Nitrogen 21 7 - 30 12/16/2019 [facility] mg/dL 8:28 AM [facility] Creatinine 1.44 (H) 0.66 - 12/16/2019 [place] 1.25 mg/dL 8:28 AM [facility] GFR Estimate 44 (L) >60 12/16/2019 [place] mL/min/{1. 8:28 AM [facility] 73_m2} HOSPITAL Comment: Non GFR Calc Starting 04/16/2018, serum creatinine ba sed estimated GFR (eGFR) will be calculated using the Chronic Kidney Dise [facility] Epidemiology Collaboration (CKD-EPI) equation. GFR Estimate If 51 (L) >60 mL/min/{1.73_m2} 12/16/2019 8: 28 AM [facility] Comment: GFR Calc Starting 04/16/2018, serum creatinine ba sed estimated GFR (eGFR) will be calculated using the Chronic Kidney Dise [facility] Epidemiology Collaboration (CKD-EPI) equation. Calcium 8.0 (L) 8.5 - 10.1 mg/dL 12/16/2019 8:28 AM [facility] Specimen Anatomical Collection Method Collection Time Receive d Time (Source) Location / / Volume Laterality Blood specimen 12/16/2019 8:04 AM 020 8:05 (specimen) CDT AM CDT Ivelisse Purvis PA-C LAB - BLOOD ORDERABLES Performing Organization Address City/State/ZIP Code Phon e Number [place] [address] [phone] (ABNORMAL) Glucose by meter (12/16/2019 1:36 AM [...] gist Method Time Signature COVID-19 Nasopharyngeal 12/16/2019 [place] Virus PCR to 12:19 AM [facility] HOSPITAL Source COVID-19 Not Detected 12/17/2019 [facility] Virus PCR to 11:10 AM [facility] GENOM[facility] Result CENTER LABORATORY Comment: Collection of [...] N1,N2 gene targets of CoV2 and human VP [employer] as an internal control. A negative result does not rule out the presence of real-time PCR inhibitors in the specimen or COVID-19 RNA in leila ntrations below the limit of detection of [...] (Centers for Disease Control) Testing performed by [facility], Room 1-210, [address] [place] [id number]. T his test was developed and its performance characteristics determined b y the [facility]. It has not been cleared or appr [...] Organization Address City/State/[place] [address] [facility] Room: 1-210 LABORATORY [facility] [address] [phone] (ABNORMAL) UA with Microscopic (12/16/2019 12:07 AM CDT) [facility] Method Time Signature Color Urine Straw 12/16/2019 [place] 12:22 AM [facility] Appearance Urine Clear 12/16/2019 [place] 12:22 AM [facility] Glucose Urine Negative NEG^Negat 12/16/2019 [place] gianna mg/dL 12:22 [facility] Bilirubin Urine Negative NEG^Negat 12/16/2019 [place] gianna 12:22 [facility] Ketones Urine Negative NEG^Negat 12/16/2019 [place] gianna mg/dL 12:22 [facility] Specific [place] 1.012 1.003 - 12/16/2019 [place] Urine 1.035 12:22 [facility] Blood Urine Negative NEG^Negat 12/16/2019 [place] gianna 12:22 AM [facility] pH Urine 5.0 5.0 - 7.0 12/16/2019 [place] pH 12:22 AM [facility] Protein Albumin Negative NEG^Negat 12/16/2019 [place] Urine gianna mg/dL 12:22 AM [facility] Urobilinogen Normal 0.0 - 2.0 12/16/2019 [place] mg/dL mg/dL 12:22 AM [facility] Nitrite Urine Negative NEG^Negat 12/16/2019 [place] gianna 12:22 AM [facility] Leukocyte Negative NEG^Negat 12/16/2019 [place] Esterase Urine gianna 12:22 AM [facility] Source Midstream 12/16/2019 [place] Urine 12:07 AM [facility] WBC Urine 1 0 - 5 12/16/2019 [place] /HPF 12:22 [facility] RBC Urine 0 0 - 2 [facility] Mucous Urine Present (A) NEG^Negat 12/16/2019 [place] gianna /LPF 12:22 [facility] Specimen (Source) Anatomical Collection Method Collection Time Re ceived Time Location / / Volume Laterality Examination of URINE SPECIMEN 12/16/2019 12:07 020 midstream urine OBTAINED BY CLEAN AM CDT 12:13 A M CDT specimen CATCH PROCEDURE / (procedure) Unknown Kylie Barboza DO LAB - URINE ORDERABLES Performing Organization Address City/State/ZIP Code Phon e Number [place] [address] [address] [place] [address] [place] [address] [address] [place] [phone] CT Cervical Spine w/o Contrast (12/15/2019 11:22 [...] EXAM: CT CERVICAL SPINE W/O CONTRAST LOCATION: [facility] DATE/TIME: 12/15/2019 10:39 PM INDICATION: Neck injury [...] EXAM: CT CERVICAL SPINE W/O CONTRAST LOCATION: [facility] DATE/TIME: 12/15/2019 10:39 PM INDICATION: Neck injury [...] EXAM: CT FACIAL BONES WITHOUT CONTRAST LOCATION: [facility] DATE/TIME: 12/15/2019 10:39 PM INDICATION: Facial injury [...] EXAM: CT FACIAL BONES WITHOUT CONTRAST LOCATION: [facility] DATE/TIME: 12/15/2019 10:39 PM INDICATION: Facial injury [...] CDT EXAM: CT HEAD W/O CONTRAST LOCATION: [facility] DATE/TIME: 12/15/2019 10:38 PM INDICATION: Head injury [...] original. EXAM: CT HEAD W/O CONTRAST LOCATION: [facility] DATE/TIME: 12/15/2019 10:38 PM INDICATION: Head injury [...] CDT EXAM: CT CHEST/ABDOMEN/PELVIS W CONTRAST LOCATION: [facility] DATE/TIME: 12/15/2019 10:40 PM INDICATION: Trauma -???Chest, [...] original. EXAM: CT CHEST/ABDOMEN/PELVIS W CONTRAST LOCATION: [facility] DATE/TIME: 12/15/2019 10:40 PM INDICATION: Trauma -???Chest, [...] - BEAKER POCT Performing Organization Address City/[facility]/ZIP Code Phon e Number FV POINT OF [...] gist Method Time Signature ABO A 12/15/2019 [place] 10:58 PM CDT [facility] RH(D) Pos [facility] Antibody Neg 12/15/2019 [place] Screen 10:58 PM T [facility] Test Valid [place] 12/15/2019 [facility] Only At [facility] 10:48 PM CDT [facility] HOSPITAL Specimen 12/18/2019 12/15/2019 [place] Expires 10:48 PM T [facility] Specimen Anatomical Collection Method Collection Time Receive d Time (Source) Location / / Volume Laterality Blood specimen 12/15/2019 10:17 0 (specimen) PM CDT 10:22 PM CDT Kylie Barboza DO LAB - BLOOD BANK TEST ORDER Performing Organization Address City/[facility]/ZIP [facility] Phon e Number M [facility] [address] [phone] HOSPITAL [facility] [address] [phone] Hemoglobin A1c (12/15/2019 10:16 PM CDT) P athologist Signature Hemoglobin A1C 5.4 0 - 5.6 % 12/16/2019 [place] 1:30 AM CDT [facility] Comment: Normal <5.7% Prediabetes 5.7-6.4% ??Diab etes 6.5% or higher - adopted from ADA consensus guidelines. Specimen Anatomical Collection Method Collection Time Receive d Time (Source) Location / / Volume Laterality 12/15/2019 10:16 12/15/2019 PM CDT 10:21 PM CDT Kylie Barboza DO LAB - BLOOD ORDERABLES Performing Organization Address City/State/ZIP Code Phon e Number M [facility] [address] [address] [facility] [address] [place] [address], [place] [phone] Troponin I (now) (12/15/2019 10:16 PM CDT) athologist Signature Troponin I ES <0.015 0.000 - 12/15/2019 [place] 0.045 ug/L 10:44 PM CDT [facility] Comment: The 99th percentile for upper [...] Address City/State/ZIP Code Phon e Number M [facility] [address], [place] [address] [facility] [address], [place] [address] [facility] [phone] CK total (12/15/2019 10:16 PM CDT) athologist [facility] CK Total 149 30 - 300 12/15/2019 [facility] U/L 10:42 PM CDT HOSPITAL Specimen Anatomical Collection Method Collection Time Receive d Time (Source) Location / / Volume Laterality Blood specimen 12/15/2019 10:16 0 (specimen) PM CDT 10:21 PM CDT Kylie Barboza DO LAB - BLOOD ORDERABLES Performing Organization Address City/State/ZIP Code Phon e Number M [facility] [address], [place] [address] [facility] [address], [place] [address] 7, [facility] [phone] (ABNORMAL) Alcohol ethyl (12/15/2019 10:16 PM CDT) athologist Signature Ethanol g/dL 0.18 (H) <0.01 g/dL 12/15/2019 [place] 10:42 PM CDT [facility] Specimen Anatomical Collection Method Collection Time Receive d Time (Source) Location / / Volume Laterality Blood specimen 12/15/2019 10:16 0 (specimen) PM CDT 10:21 PM CDT Kylie Barboza DO LAB - BLOOD ORDERABLES Performing Organization Address City/[facility] Phon e Yohana [facility] [address], [place] [address] [facility] [address], [place] [address], [facility] [phone] Partial thromboplastin time (12/15/2019 10:16 PM CDT) athologist Signature PTT 26 22 - 37 sec 12/15/2019 [facility] 10:46 PM CDT HOSPITAL Specimen Anatomical Collection Method Collection Time Receive d Time (Source) Location / / Volume Laterality Blood specimen 12/15/2019 10:16 0 (specimen) PM CDT 10:21 PM CDT Kylie Barboza DO LAB - BLOOD ORDERABLES Performing Organization Address City/[facility] Phon e Yohana Sin [facility] [address], [place] [address] [facility] [address], [place] [address], [facility] [phone] INR (12/15/2019 10:16 PM CDT) athologist Signature INR 1.00 0.86 - 1.14 12/15/2019 [facility] 10:46 PM CDT HOSPITAL Specimen Anatomical Collection Method Collection Time Receive d Time (Source) Location / / Volume Laterality Blood specimen 12/15/2019 10:16 08/17/202 0 (specimen) PM CDT 10:21 PM CDT Kylie Barboza DO LAB - BLOOD ORDERABLES Performing Organization Address City/State/ZIP Code Phon e Yohana M [facility] [address], [place] [address] [facility] [address], [place] [address] [facility] [phone] (ABNORMAL) Comprehensive metabolic panel (12/15/2019 10:16 PM CDT) Analysis Performed At [facility] logis Time Signature Sodium 133 133 - 144 12/15/2019 [place] mmol/L 10:33 PM [facility] Potassium 3.5 3.4 - 5.3 12/15/2019 [place] mmol/L 10:33 PM [facility] Chloride 100 94 - 109 12/15/2019 [place] mmol/L 10:33 PM [facility] Carbon Dioxide 27 20 - 32 12/15/2019 [place] mmol/L 10:39 PM [facility] Anion Gap 6 3 - 14 12/15/2019 [place] mmol/L 10:39 PM [facility] Glucose 56 (L) 70 - 99 12/15/2019 [place] mg/dL 10:39 PM [facility] Urea Nitrogen 23 7 - 30 12/15/2019 [place] mg/dL 10:39 PM [facility] Creatinine 1.54 (H) 0.66 - 12/15/2019 [place] 1.25 mg/dL 10:39 PM [facility] GFR Estimate 41 (L) >60 12/15/2019 [place] mL/min/{1. 10:39 PM [facility] 73_m2} HOSPITAL Comment: Non GFR Calc Starting 04/16/2018, serum creatinine ba sed estimated GFR (eGFR) will be calculated using the Chronic Kidney Dise [facility] Epidemiology Collaboration (CKD-EPI) equation. GFR Estimate If 47 (L) >60 mL/min/{1.73_m2} 12/15/2019 10:39 PM [facility] Comment: GFR Calc Starting 04/16/2018, serum creatinine ba sed estimated GFR (eGFR) will be calculated using the Chronic Kidney Dise [place] Epidemiology Collaboration (CKD-EPI) equation. Calcium 7.8 (L) 8.5 - 10.1 12/15/2019 10:39 PM [facility] mg/dL [facility] Bilirubin Total 0.3 0.2 - 1.3 mg/dL 12/15/2019 10:42 P [facility] Albumin 3.6 3.4 - 5.0 g/dL 12/15/2019 10:42 PM [facility] IEW [facility] Protein Total 6.7 (L) 6.8 - 8.8 g/dL 12/15/2019 10:42 PM [facility] Alkaline Phosphatase 66 40 - 150 U/L 12/15/2019 10:42 PM [facility] ALT 50 0 - 70 U/L 12/15/2019 10:42 PM [facility] AST 58 (H) 0 - 45 U/L 12/15/2019 10:42 PM [facility] Specimen Anatomical Collection Method Collection Time Receive d Time (Source) Location / / Volume Laterality Blood specimen 12/15/2019 10:16 0 (specimen) PM CDT 10:21 PM T Kylie Barboza DO LAB - BLOOD ORDERABLES Performing Organization Address City/State/ZIP Code Phon e Number [place] [address] [address] [place] [address] [facility]PITAL [facility] [address] [phone] (ABNORMAL) CBC with platelets differential (12/15/2019 10:16 PM CDT) [facility] Method Time Signature WBC 7.9 4.0 - 12/15/2019 [facility] 11.0 10:24 PM [facility] 10e9/L [facility] RBC Count 3.73 (L) 4.4 - 5.9 12/15/2019 [place] 10e12/L 10:24 PM [facility] Hemoglobin 12.6 (L) 13.3 - 12/15/2019 [place] 17.7 g/dL 10:24 PM [facility] Hematocrit 38.7 (L) 40.0 - 12/15/2019 [facility] 53.0 % 10:24 PM [facility] MCV 104 (H) 78 - 100 12/15/2019 [facility] fl 10:24 PM [facility] MCH 33.8 (H) 26.5 - 12/15/2019 [facility] 33.0 pg 10:24 PM [facility] MCHC 32.6 31.5 - 12/15/2019 [facility] 36.5 g/dL 10:24 PM [facility] RDW 13.2 10.0 - 12/15/2019 [facility] 15.0 % 10:24 PM [facility] Platelet Count 143 (L) 150 - 450 12/15/2019 [facility] 10e9/L 10:24 PM [facility] Diff Method Automated 12/15/2019 [facility] Method 10:24 PM [facility] % Neutrophils 37.6 % 12/15/2019 [facility] 10:24 PM [facility] % Lymphocytes 44.3 % 12/15/2019 [facility] 10:24 PM [facility] % Monocytes 7.9 % 12/15/2019 [facility] 10:24 PM [facility] % Eosinophils 7.9 % 12/15/2019 [facility] 10:24 PM [facility] % Basophils 1.0 % 12/15/2019 [facility] 10:24 PM [facility] % Immature 1.3 % 12/15/2019 [facility] Granulocytes 10:24 PM [facility] Nucleated RBCs 0 0 /100 12/15/2019 [facility] 10:24 PM [facility] Absolute 3.0 1.6 - 8.3 12/15/2019 [facility] Neutrophil 10e9/L 10:24 PM [facility] Absolute 3.5 0.8 - 5.3 12/15/2019 [facility] Lymphocytes 10e9/L 10:24 PM [facility] Absolute 0.6 0.0 - 1.3 12/15/2019 [facility] Monocytes 10e9/L 10:24 PM [facility] Absolute 0.6 0.0 - 0.7 12/15/2019 [facility] Eosinophils 10e9/L 10:24 PM [facility] Absolute 0.1 0.0 - 0.2 12/15/2019 [facility] Basophils 10e9/L 10:24 PM [facility] Abs Immature 0.1 0 - 0.4 12/15/2019 [facility] Granulocytes 10e9/L 10:24 PM [facility] Absolute 0.0 12/15/2019 [place] Nucleated RBC 10:24 PM [facility] Specimen Anatomical Collection Method Collection Time Receive d Time (Source) Location / / Volume Laterality Blood specimen 12/15/2019 10:16 0 (specimen) PM CDT 10:21 PM CDT Kylie Barboza DO LAB - BLOOD ORDERABLES Performing Organization Address City/[facility]/ZIP [facility] Phon e Number [place] [address] [address] [place] [address] [facility] [address] [address] [facility] [phone] EKG 12 lead (12/15/2019 10:11 PM CDT) [facility] gist Method Time Signature Interpretation ECG Click View RADIOLOGY Image link RESULTS to view waveform and result Specimen (Source) Anatomical Collection Method Collection Time Re ceived Time Location / / Volume Laterality 12/15/2019 10:11 PM CDT Kylie Barboza DO ECG ORDERABLES Performing Organization Address City/[facility]/ZIP Code Phon e Number RADIOLOGY RESULTS (ABNORMAL) [...] - BEAKER POCT Performing Organization Address City/[facility]/ZIP Code Phon e Number FV POINT OF [...] 0050, Oral dosing is the preferred ro hoh of administration. Dose according to CIWA-Ar score: [...] equal to 100 mg/dL continue to ad processing operator carbohydrate treatment every 15 minutes, as needed, [...] below. If blood glucose at 15 min hoh rechecks is still less than or equal [...] stools.
documented in this encounter Care Teams Cigar Wrapper Tender Automatic Relationship Specialty Start Date End Date Antonio Cummings MD PCP - General Family Practice 02/17/11 12/15/19 [facility] PCP - General 12/16/19 [facility]- [address] [place] [id number] documented as of this encounter
--- OUTSIDE RECORDS SUMMARY | 2022-03-07 12:55 | XMS_ITS | Clinical Summary ---
:1935 Author Organization [place] Address [address] [facility] [place] [address] Care Team Providers Name Role Phone [facility] Provi alex Clinics- Allergies [...] by without complication PCP Dr. Higgins () [facility] with phone number [phone]. glucose (BD GLUCOSE) 4 Take 1 tablet [...] Address T ype Group Dates MEDICARE MEDICARE [id number] 2010-Prese [phone] ATTN ALISHA MS Medicare nt 40 [address] [facility] [place] [address] BCBS BCBS OF [place] [id number] 2016-Prese [phone] [address] [address] Indemnity nt [address] [place] [address] Advance Directives For more information, please contact: [phone] Latest Code Status on File Code Status Date Activated Date Inactivated Comments Full Code 12/16/2019 12:50 AM 12/16/2019 12:42 PM All basic and advanced life-sustaining interventions are performed as arminda ropriate Question Answer Comments Code status determined by: Discussion with patient/ legal de cision maker Care Teams Recovery Room Nurse Relationship Specialty Start Date End Date [facility] PCP - General 12/16/19 [facility]- [address] [place] [address]
--- OUTSIDE RECORDS SUMMARY | 2022-03-07 12:56 | XMS_ITS | Encounter Summary ---
:1935 Author Organization [place] Address [facility] [place] [address] Care Team Providers Name Role Phone Unavailable Primary Care Provider Unavailable Encounter Details Date Type Department Care Team Description 02/27/2008 Historic Results [facility] Katrin Cummings MD [address] [address] [phone] Social History Tobacco Use Types Packs/Day Years [...]
--- OUTSIDE RECORDS SUMMARY | 2022-03-07 12:56 | XMS_ITS | Continuity of Care Document ---
:1935 Author Organization [facility] Care Team Providers Name Role Phone [facility] Unavailable Unavailable Problems Combined list of problems from Department of [facility] and [facility] facilities. It does not include entries that were removed or entered in error. 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 Essential Active Condition [facility] hypertension HCS Gastro-esophageal Active Condition [facility] reflux disease HCS without esophagitis Hyperlipidemia Active Condition [facility] HCS Obstructive sleep Active Condition [facility] apnea of adult HCS Type 2 diabetes Active Condition [facility] mellitus without HCS complication Diagnosis: Active Diagnosis [facility] ICD-10-CM H90.3 HCS Sensorineural hearing loss, bilateralwith Provider Comments: Sensorineural hearing loss, bilateral Medications Combined list of outpatient medications from Department of [facility] and [facility] facilities. Medications provided include 1) outpatient medications from the last 15 months, and 2) patient-reported medications. Medication Details Route Status Patient Prescription Prescription Last Ordering Order Source Instructions Expires Number Dispense Provider Date Date ALLOPURINOL TAKE ONE ORALLY ACTIVE ABBY,BUTCH 01/18 / [place] 300MG TAB TABLET 2016 [facility] BY MOUTH [facility] EVERY DAY ASPIRIN TAKE ONE ORALLY ACTIVE ABBY,BUTCH 01/18/ [place] 81MG TAB,EC TABLET 2016 [facility] BY [facility]TH [facility] EVERY DAY ESCITALOPRA TAKE 5MG ORALLY ACTIVE ABBY,BUTCH 01/18 / [place] M TAB,ORAL BY MOUTH 2016 [facility] A EVERY HCS DAY GLIPIZIDE TAKE ONE ORALLY ACTIVE ABBY,BUTCH 01/18/ [place] 2.5MG TABLET 2016 [facility] TAB,SA BY MOUTH HCS EVERY DAY LISINOPRIL TAKE ORALLY ACTIVE ABBY,BUTCH 01/18/ [place] 40MG TAB ONE-HALF 2016 [facility] [...] atus Comments Source Given By Number Code [employer] COVID-19 2 complet PFR; [place] ([place]actus), 2020 ed [id number]; [facility] MRNA, LNP-S, 02 HCS PF, 30 1 MCG/0.3 ML DOSE COVID-19 1 complet PFR; [place] ([place]), 2020 ed [id number]; [facility] MRNA, LNP-S, 02 HCS PF, 30 1 MCG/0.3 ML DOSE ZOSTER LIVE complet [employer] , [place] 2016 ed [id number], [facility] 02/22/18 HCS PNEUMOCOCCAL complet [facility] [place] CONJUGATE PCV 2014 ed [place] 13 HCS TDAP complet [place] 2009 ed [place] HCS PNEUMOCOCCAL complet [facility] [place] POLYSACCHARID 2008 ed [facility] E PPV23 HCS Encounters Combined list of: 1) Encounters from 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 Location Location Encounter Encounter Reason Attending ADM DC Stat us Disposition Source Details Type Number For Provider Date Date Visit HEARING 76688-2.61 Adan SILVA,TH 11/03 [place] [facility] [id number] is: OMAS /2020 [facility] FITTING/CH ICD-10- HCS ECKING CM H90.3 Sensori neural hearing loss, bilater al
with Provide r Comment s: Sensori neural hearing loss, bilater al HEARING 45750-8.61 Diagnos CANELOMELINDA 02/15 [place] [facility] [id number] is: [facility] FITTING/CH ICD-10- [facility] ECKING CM H90.3 Sensori neural hearing loss, bilrubens al
with Provide r Comment s: Sensori neural hearing loss, karri roca Social History Combined list of available smoking, tobacco, and other social history from Department of Defense andVeterans Affairs facilities. Social History Type Response Date Comment Source Tobacco smoking status FORMER TOBACCO USER 7Y 01/22/2017 [facility] NHIS OR GREATER
--- OUTSIDE RECORDS SUMMARY | 2022-03-07 12:56 | XMS_ITS | Encounter Summary ---
:1935 Author Organization [place] Address [facility] [place] [address] Care Team Providers Name Role Phone Unavailable Primary Care Provider Unavailable Encounter Details Date Type Department Care Team Description 02/26/2008 Historic Notes INTERFACED REPORT Interface, Transcript on, Social History Tobacco Use Types Packs/Day Years Used Date Smoking Tobacco: Never Assessed Sex Assigned at Date Recorded Not on file documented as of this encounter Progress Notes Interface, Desktop Support Specialist - 07/17/2010 2:30 PM CDT Patient Status - Diagnosis/Procedure Right hemicolectomy - Physical status Stable (s/s of potential complications absent or manageable) - Psychosocial status Stable Discharge Planning - Discharge From: [facility] - Patient Care Unit: MS2 - PCU [...] Dr. Cummings call: - Phone number of [facility] [phone] patient should call: - Additional Check incision [...] Care Needs and Instructions,Follow Up Care Interface, Desktop Support Specialist - 07/17/2010 2:29 PM CDT NUTRITION ASSESSMENT [...]
--- OUTSIDE RECORDS SUMMARY | 2022-03-07 12:56 | XMS_ITS | Encounter Summary ---
:1935 Author Organization [place] Address [address] [place] [address] Care Team Providers Name Role Phone Unavailable Primary Care Provider Unavailable Encounter Details Date Type Department Care Team Description 02/21/2008 Admission [facility] Araseli Mireles, (Arcade Game Technician) [facility] Results [address] [place] [address] (Wo rk) Social History Tobacco Use Types Packs/Day Years Used Date Smoking Tobacco: Never Assessed Sex Assigned at Date Recorded Not on file documented as of this encounter Progress Notes Interface, Arcade Game Technician - 03/30/2008 2:51 PM TEACHER LIP READING FINAL Edtorsten Alexandra is a 73-year-old man [...] in 2005. Alcohol occasional. 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 PAST MEDICAL HISTORY: Allergies: Denied. Hospitalization: Fractured [...] NABEEL#[id number] Name: MAT ALEXANDRA MRN: [id number] Account: [id number] : 1935 Admitted: [id number] Document: [id number] HER LIP READING documented in this encounter Plan of Treatment Not on filedocumented as of this encounter Visit Diagnoses Not on filedocumented in this encounter
--- OUTSIDE RECORDS SUMMARY | 2022-03-07 12:56 | XMS_ITS | Encounter Summary ---
:1935 Author Organization [place] Address [address] [facility] [place] [address] Care Team Providers Name Role Phone Antonio Cummings MD Primary Care Provider Encounter Details Date Type Department Care Team Description 12/20/2009 Historic Results [facility] Heart Unknown, [facility] [address] [address] Social History Tobacco Use Types [...] on filedocumented in this encounter Care Teams Cigar Sorter Relationship Specialty Start Date End Date Antonio Cummings MD PCP - General Family Practice 02/17/11 12/15/19 documented as of this encounter
--- OUTSIDE RECORDS SUMMARY | 2022-03-07 12:56 | XMS_ITS | Encounter Summary ---
:1935 Author Organization [place] Address [facility] [place] [address] Care Team Providers Name Role Phone Unavailable Primary Care Provider Unavailable Encounter Details Date Type Department Care Team Description 02/21/2008 Operative Report [facility] Nilay Mcgarry, (Patient Relations Specialist) [facility] Results [address] [facility] [address] [place] [address] (Wo rk) Social History Tobacco Use Types Packs/Day Years Used Date Smoking Tobacco: Never Assessed Sex Assigned at Date Recorded Not on file documented as of this encounter Progress Notes Nilay Mcgarry - 04/10/2008 9:24 AM PUTTYING AND CALKING SUPERVISOR FINAL PREOPERATIVE DIAGNOSIS: Large sessile polyp. POSTOPERATIVE DIAGNOSIS: Large sessile polyp. PROCEDURE: Right hemicolectomy. ANESTHESIA: General. PREOPERATIVE MEDICATIONS: Invanz 1 gram IV. SURGEON: Nilay Mcgarry MD CUTTER PLASTICS ROLLS: MERRICK Alexander INDICATIONS: Mat Alexandra is a [...] division. Grossly, the nodes were negative. A [id number] functional end-to-end anastomosis was then performed with julia and the mesenteric defect closed using running [...] NABEEL#[id number] Name: MAT ALEXANDRA MRN: [id number] Account: [id number] : 1935 Procedure Date: 02/21/2008 Document: [id number] YING AND CALKING SUPERVISOR documented in this encounter Plan of Treatment Not on filedocumented as of this encounter Visit Diagnoses Not on filedocumented in this encounter
--- OUTSIDE RECORDS SUMMARY | 2022-03-07 12:56 | XMS_ITS | Encounter Summary ---
:1935 Author Organization [place] Address [facility] [place] [address] Care Team Providers Name Role Phone Unavailable Primary Care Provider Unavailable Encounter Details Date Type Department Care Team Description 02/25/2008 Historic Notes INTERFACED REPORT Interface, Transcript on, Social History Tobacco Use Types Packs/Day Years Used Date Smoking Tobacco: Never Assessed Sex Assigned at Date Recorded Not on file documented as of this encounter Progress Notes Interface, Clothes Model - 07/17/2010 2:33 PM CDT SH Visited patient per length of stay. Patient was alert and talkative, but expressed some pain. I offered services, but patient expressed no needs at this time. No further visits are planned. [Signature] Author: GAVIN RYAN (Financial Agent Software Licensing Executive) [Signed 10:40] documented in this encounter Plan of Treatment Not on filedocumented as of this encounter Visit Diagnoses Not on filedocumented in this encounter
--- OUTSIDE RECORDS SUMMARY | 2022-03-07 12:56 | XMS_ITS | Encounter Summary ---
:1935 Author Organization [place] Address [facility] [place] [address] Care Team Providers Name Role Phone Unavailable Primary Care Provider Unavailable Encounter Details Date Type Department Care Team Description 02/25/2008 Historic Results [facility] Katrin Cummings MD [address] [address] [phone] Social History Tobacco Use Types Packs/Day Years [...] ORR - ALL POCT Performing Organization Address City/State/[facility] Code Phon e Number MISYS (ABNORMAL) Glucose by meter (02/25/2008 4:32 PM CDT) P athologist Signature Glucose 158 (H) 60 - 99 MISYS mg/dL Comment: RN/Dr notified Specimen Anatomical Collection Method Collection Time Receive d Time (Source) Location / / Volume Laterality 02/25/2008 4:32 PM 8 4:45 CDT PM CDT [place] ORR - ALL POCT Performing Organization Address City/[facility]/ZIP Code Phon e Number MISYS (ABNORMAL) Glucose [...] ORR - ALL POCT Performing Organization Address City/State/[facility] Code Phon e Number MISYS (ABNORMAL) Glucose by meter (02/25/2008 4:04 AM CDT) P athologist Signature Glucose 156 (H) 60 - 99 MISYS mg/dL Specimen Anatomical Collection Method Collection Time Receive d Time (Source) Location / / Volume Laterality 02/25/2008 4:04 AM 8 4:10 CDT AM CDT [place] ORR - ALL POCT Performing Organization Address [facility] Phon e Number MISYS (ABNORMAL) Glucose by [...]
--- OUTSIDE RECORDS SUMMARY | 2022-03-07 12:56 | XMS_ITS | Clinical Summary ---
:1935 Author Organization [facility] [place] [address] Care Team Providers Name Role Phone Antonio [...] (246 lb 1 oz) 06/15/2021 1:10 PM NEON SIGN SERVICER Height 180.3 cm (5' 11) 06/15/2021 1:10 PM NEON SIGN SERVICER Body Mass Index 34.32 06/15/2021 1:10 PM NEON SIGN SERVICER Plan of Treatment Health Maintenance Due Date [...] Group MEDICARE PART B MEDICARE PART B [id number] 2000-Presen ATTN: CLAIMS - HB USE ONLY HB ONLY t [address] [facility] [place] [address] MEDICARE PART A MEDICARE PART A [id number] 2000-Presen ATTN: CLAIMS - HB USE ONLY HB ONLY t [address] [place] [address] BLUE CROSS BLUE CROSS OF [id number] 2016-Presen [address] [place] J[place] Ordoñez [phone] Advance Directives Latest Code Status on File [...] 11:35 PM 12/13/2014 8:02 PM Care Teams Registered Nurse Teacher Relationship Specialty Start Date End Date Antonio Cummings MD PCP - General Family Practice 05/04/14
--- OUTSIDE RECORDS SUMMARY | 2022-03-07 12:56 | XMS_ITS | Encounter Summary ---
:1935 Author Organization [place] Address [facility] [place] [address] Care Team Providers Name Role Phone Unavailable Primary Care Provider Unavailable Encounter Details Date Type Department Care Team Description 02/26/[address] [facility] Katrin Cummings MD [address] [address] [phone] Social History Tobacco Use Types Packs/Day Years [...] LAB - BEBAUTISTA POCT Performing Organization Address City/[facility]/ZIP Code Phon e Number MISYS (ABNORMAL) Glucose by meter (02/26/2008 11:34 AM CDT) P athologist Signature Glucose 188 (H) 60 - 99 MISYS mg/dL Specimen Anatomical Collection Method Collection Time Receive d Time (Source) Location / / Volume Laterality 02/26/2008 11:34 02/26/2008 AM CDT 11:45 AM CDT [place] Cummings MD LAB - ALL POCT Performing Organization Address City/[facility]/ZIP Code Phon e Number MISYS (ABNORMAL) Glucose by meter (02/26/2008 7:39 AM CDT) P athologist Signature Glucose 155 (H) 60 - 99 MISYS mg/dL Specimen Anatomical Collection Method Collection Time Receive d Time (Source) Location / / Volume Laterality 02/26/2008 7:39 AM 8 7:45 CDT AM CDT [place] Cummings MD LAB - BEBAUTISTA POCT Performing Organization Address City/[facility]/ZIP Code Phon e Number MISYS Creatinine (02/26/2008 [...]
--- OUTSIDE RECORDS SUMMARY | 2022-03-07 12:56 | XMS_ITS | Encounter Summary ---
:1935 Author Organization [place] Address [facility] [place] [address] Care Team Providers Name Role Phone Unavailable Primary Care Provider Unavailable Encounter Details Date Type Department Care Team Description 02/23/2008 Historic Results [facility] Katrin Cummings MD [address] [address] [phone] Social History Tobacco Use Types Packs/Day Years [...] LAB - BEBAUTISTA POCT Performing Organization Address City/State/[facility] Phon e Number MISYS (ABNORMAL) Glucose by meter (02/23/2008 4:27 PM CDT) P athologist Signature Glucose 151 (H) 60 - 99 MISYS mg/dL Specimen Anatomical Collection Method Collection Time Receive d Time (Source) Location / / Volume Laterality 02/23/2008 4:27 PM 8 4:35 CDT PM CDT [place] Cummings MD LAB - ALL POCT Performing Organization Address [facility] Phon e Number MISYS (ABNORMAL) Glucose by meter (02/23/2008 11:20 AM CDT) P athologist Signature Glucose 156 (H) 60 - 99 MISYS mg/dL Comment: RN/ notified Specimen Anatomical Collection Method Collection Time Receive d Time (Source) Location / / Volume Laterality 02/23/2008 11:20 02/23/2008 AM CDT 11:30 AM CDT [place] ORR - ALL POCT Performing Organization Address [facility] Phon e Number MISYS (ABNORMAL) Glucose by [...] ORR - ALL POCT Performing Organization Address City/State/[facility] Code Phon e Number MISYS (ABNORMAL) Glucose by meter (02/23/2008 12:03 AM CDT) P athologist Signature Glucose 164 (H) 60 - 99 MISYS mg/dL Specimen Anatomical Collection Method Collection Time Receive d Time (Source) Location / / Volume Laterality 02/23/2008 12:03 02/23/2008 AM CDT 12:20 AM CDT [place] ORR - ALL POCT Performing Organization Address City/State/[facility] Code Phon e Number MISYS documented in this encounter Visit Diagnoses Not on filedocumented in this encounter
--- OUTSIDE RECORDS SUMMARY | 2022-03-07 12:56 | XMS_ITS | Encounter Summary ---
:1935 Author Organization [place] Address [facility] [place] [address] Care Team Providers Name Role Phone Unavailable Primary Care Provider Unavailable Encounter Details Date Type Department Care Team Description 02/22/2008 Historic Results [facility] Katrin Cummings MD [address] [phone] Social History Tobacco Use Types Packs/Day Years [...] LAB - BEBAUTISTA POCT Performing Organization Address [facility] Phon e Number MISYS (ABNORMAL) Glucose by meter (02/22/2008 4:23 PM CDT) P athologist Signature Glucose 150 (H) 60 - 99 MISYS mg/dL Comment: ELI/ notified Specimen Anatomical Collection Method Collection Time Receive d Time (Source) Location / / Volume Laterality 02/22/2008 4:23 PM 8 4:30 CDT PM CDT [place] Cummings MD LAB - ALL POCT Performing Organization Address [facility] Phon e Number MISYS (ABNORMAL) Glucose by meter (02/22/2008 11:26 AM CDT) P athologist Signature Glucose 183 (H) 60 - 99 MISYS mg/dL Comment: ELI/ notified Specimen Anatomical Collection Method Collection Time Receive d Time (Source) Location / / Volume Laterality 02/22/2008 11:26 02/22/2008 AM CDT 11:35 AM CDT [place] ORR - ALL POCT Performing Organization Address [facility] Phon e Number MISYS (ABNORMAL) Glucose by meter (02/22/2008 7:06 AM CDT) P athologist Signature Glucose 139 (H) 60 - 99 MISYS mg/dL Comment: ELI/ notified Specimen Anatomical Collection Method Collection Time Receive d Time (Source) Location / / Volume Laterality 02/22/2008 7:06 AM 8 7:20 CDT AM CDT [place] Cummings MD LAB - ALL POCT Performing Organization Address [facility] Phon e Number MISYS (ABNORMAL) CBC [...]
--- OUTSIDE RECORDS SUMMARY | 2022-03-07 12:56 | XMS_ITS | Encounter Summary ---
:1935 Author Organization [place] Address [facility] [place] [address] Care Team Providers Name Role Phone Antonio Cummings MD Primary Care Provider Reason for Visit Reason Comments Facial Laceration Patient was bending over to pet a cat and tipped over, striking his face, laceration to his nose and lip Encounter Details Date Type Department Care Team Description 02/17/2011 - Emergency [facility] Dion Pacheco oumar laceration; 02/18/2011 [facility] Emergency MD Ezra Closed head injury Dept [facility] [address] [place], [place] [address] [facility] [address] [place] [address] [phone] (Wo rk) Social History Tobacco Use Types [...] an appointment to follow up with your counter control operator in 5 days for removal of sutures, [...] Bleeding not controlled by direct pressure ?? [id number] [facility], [address] [place] [address]. All rights reserved. This information is not [...] #[id number] Name: MAT ALEXANDRA MRN: [id number] Account: [id number] : 1935 Visit Date: 02/17/2011 Document: [id number] Kaitlynn Puri RN - 02/17/2011 10:46 PM [...] Override documented in this encounter Care Teams Enterprise Business Architect Relationship Specialty Start Date End Date Antnoio Cummings MD PCP - General Family Practice 02/17/11 12/15/19 documented as of this encounter
--- OUTSIDE RECORDS SUMMARY | 2022-03-07 12:56 | XMS_ITS | Encounter Summary ---
:1935 Author Organization [place] Address [facility] [place] [address] Care Team Providers Name Role Phone Unavailable Primary Care Provider Unavailable Encounter Details Date Type Department Care Team Description 02/24/2008 Historic Results [facility] Katrin Cummings MD [address] [phone] Social History Tobacco Use Types Packs/Day Years [...] ORR - ALL POCT Performing Organization Address City/State/[facility] Code Phon e Number MISYS (ABNORMAL) Glucose by meter (02/24/2008 5:20 PM CDT) P athologist Signature Glucose 147 (H) 60 - 99 MISYS mg/dL Comment: RN/ notified Specimen Anatomical Collection Method Collection Time Receive d Time (Source) Location / / Volume Laterality 02/24/2008 5:20 PM 8 5:25 CDT PM CDT [place] ORR - ALL POCT Performing Organization Address City/[facility] Phon e Number MISYS (ABNORMAL) Glucose by meter (02/24/2008 12:55 PM CDT) P athologist Signature Glucose 163 (H) 60 - 99 MISYS mg/dL Specimen Anatomical Collection Method Collection Time Receive d Time (Source) Location / / Volume Laterality 02/24/2008 12:55 02/24/2008 PM CDT 11:30 PM CDT [place] ORR - ALL POCT Performing Organization Address City/[facility] Phon e Number MISYS (ABNORMAL) Glucose by meter (02/24/2008 8:03 AM CDT) P athologist Signature Glucose 167 (H) 60 - 99 MISYS mg/dL Specimen Anatomical Collection Method Collection Time Receive d Time (Source) Location / / Volume Laterality 02/24/2008 8:03 AM 8 8:10 CDT AM CDT [place] ORR - ALL POCT Performing Organization Address City/[facility] Phon e Number MISYS (ABNORMAL) Glucose by meter (02/24/2008 4:17 AM CDT) P athologist Signature Glucose 143 (H) 60 - 99 MISYS mg/dL Specimen Anatomical Collection Method Collection Time Receive d Time (Source) Location / / Volume Laterality 02/24/2008 4:17 AM 8 8:10 CDT AM CDT [place] ORR - ALL POCT Performing Organization Address City/State/[facility] Code Phon e Number MISYS (ABNORMAL) [...]
--- OUTSIDE RECORDS SUMMARY | 2022-03-07 12:56 | XMS_ITS | Encounter Summary ---
:1935 Author Organization [place] Address [facility]0 [facility] [place] [address] Care Team Providers Name Role Phone Unavailable Primary Care Provider Unavailable Encounter Details Date Type Department Care Team Description 12/20/2009 Results Only INTERFACED REPORT Julio Cummings MD [address] [facility] [address] [place] [address] (Wo rk) Social History Tobacco Use Types Packs/Day Years Used Date Smoking Tobacco: Never Assessed Sex Assigned at Date Recorded Not on file documented as of this encounter Plan of Treatment Not on filedocumented as of this encounter Procedures Procedure Name Priority Date/Time Associated Diagnosis Comme [facility] ECHO HEART Routine 12/20/2009 9:01 AM Result s for this XTHORACIC, CDT procedure are i n STRESS/REST the results section. documented in this encounter Results ECHO HEART XTHORACIC, STRESS/REST (12/20/2009 9:01 AM CDT) [facility] Method Time Signature [facility] Interpretation [...]
--- OUTSIDE RECORDS SUMMARY | 2022-03-07 12:56 | XMS_ITS | Encounter Summary ---
:1935 Author Organization [place] Address [facility]0 [facility] [address] Care Team Providers Name Role Phone Unavailable Primary Care Provider Unavailable Encounter Details Date Type Department Care Team Description 02/27/2008 Discharge Summary [facility] Greer Mcgarry, (Traffic Signal Technician) [facility] Results [address] [facility] [address] [place] [address] (Wo rk) Social History Tobacco Use Types Packs/Day Years Used Date Smoking Tobacco: Never Assessed Sex Assigned at Date Recorded Not on file documented as of this encounter Progress Notes Greer Mcgarry - 05/26/2008 4:29 PM BOOT MAKER FINAL PREOPERATIVE DIAGNOSIS: Large sessile polyp. POSTOPERATIVE [...] EM#[id number] Name: MAT ALEXANDRA MRN: [id number] Account: [id number] : 1935 Admit Date: [id number] Discharge Date: 02/27/2008 Document: [id number] cc: Fredrick Mireles MD MAKER documented in this encounter Plan of Treatment Not on filedocumented as of this encounter Visit Diagnoses Not on filedocumented in this encounter
--- OUTSIDE RECORDS SUMMARY | 2022-03-07 12:56 | XMS_ITS | Encounter Summary ---
:1935 Author Organization [place] Address [facility] [place] [address] Care Team Providers Name Role Phone Unavailable Primary Care Provider Unavailable Encounter Details Date Type Department Care Team Description 02/19/2008 Historic Notes INTERFACED REPORT Interface, Transcript on, Social History Tobacco Use Types Packs/Day Years Used Date Smoking Tobacco: Never Assessed Sex Assigned at Date Recorded Not on file documented as of this encounter Progress Notes Interface, Customer Strategy Manager - 07/17/2010 2:48 PM CDT General Information - How to be addressed Ed - Temporary living None required arrangements - Source of reliable Patient information - sporting goods salesperson to Kelly caldwell notify: - Phone 1: [phone] - Cell - Patient's Spoken Language, Palestinian communication style Advance Directive - Do you [...] Considerations - Developmental None Learning Considerations - Adventist Learning None Considerations Activity-Exercise/Self Care - Ambulation [...] not wish to have anyone contacted pastoral care/clergy/professional advisor notified? Mutuality/Individual Preferences - What information [...]
--- OUTSIDE RECORDS SUMMARY | 2022-03-07 12:56 | XMS_ITS | Encounter Summary ---
:1935 Author Organization [place] Address [address] [place] [address]. [place] [address] Care Team Providers Name Role Phone Unavailable Primary Care Provider Unavailable Encounter Details Date Type Department Care Team Description 02/21/2008 Historic Results [facility] Katrin Mcgarry MD [address] [id number] [phone] Social History Tobacco Use Types Packs/Day Years [...] 9:20 PM 8 9:35 CDT PM CDT [facility] ORR - ALL POCT Performing Organization Address City/State/ZIP Code Phon e Number MISYS (ABNORMAL) Glucose by meter (02/21/2008 5:11 PM CDT) P athologist Signature Glucose 128 (H) 60 - 99 MISYS mg/dL Specimen Anatomical Collection Method Collection Time Receive d Time (Source) Location / / Volume Laterality 02/21/2008 5:11 PM 8 CDT 11:05 AM CDT [facility] ORR - ALL POCT Performing Organization Address City/[facility] Code Phon e Number MISYS Histopathology (02/21/2008 3:50 PM CDT) Component Value Ref Test Analysis Performed At [facility] gist Range Method Time Signature Copath Report CASE: [id number] ^ [facility] Patient Name: MAT ALEXANDRA MR#: [id number] Specimen #: [id number] Collected: 02/21/2008 Received: 02/22/2008 Reported: 02/24/2008 16:52 [...] pinpoint-sized lumen in the p roximal portion. ??Tree Surgeon sections of this are embedded in c [...] brennen galindo. SILVIA/elder 02-24-08 TESTING LAB LOCATION: [address] ??[id number] COLLECTION SITE: Client: [facility] Location: MS2 (R) Specimen Anatomical Collection Method [...]
[2022-03-07 21:35] LABS: Alanine Aminotransferase* 62 U/L (4-50); Alkaline Phosphatase* 61 U/L (40-150); Aspartate Amino Transferase* 54 U/L (12-35); Bilirubin Direct* 0.1 mg/dL (0.0-0.5); Bilirubin Total* 0.5 mg/dL (0.1-1.5); Total Protein* 6.1 g/dL (6.0-8.3)
[2022-03-07 22:23] LABS: Vitamin B12* 404 pg/mL (243-894)
== END 2022-03-07 12:51 | disposition home or self-care (01) ==
PROVIDERS: PCP Emergency Medicine; Visit Provider Emergency Medicine
DX: D53.9 Nutritional anemia, unspecified (principal); R74.01 Elevation of levels of liver transaminase levels
CPT/HCPCS: 80076; 82607; 84443

== ENCOUNTER 2022-05-15 10:04 | Outpatient (CLI) | payer MEDICARE, BC, SELFPAY ==
[2022-05-15 10:38] LABS: Creatinine* 1.5 mg/dL (0.5-1.5); Estimated Glomerular Filt Rate 45 ml/min
--- NOTE | 2022-05-15 11:00 | CRLHL7_ITS ---
For Patients: As a result of the Century Cures Act, medical imaging exams and procedure reports are released immediately into your electronic medical record. You may view this report before your referring provider. If you have questions, please contact your health care provider. Indication: GIST F/U SURVEILLANCE Technique: Postcontrast CT abdomen and pelvis. 120 cc Isovue 370 intravenous contrast. Please note that all CT scans at this facility use dose modulation, iterative reconstruction, and/or weight-based dosing when appropriate to reduce radiation dose to as low as reasonably achievable. Comparison: 05/19/2021 Findings: Lung bases are clear with the exception of minimal scarring. No pleural effusion or suspicious nodule. Fatty infiltration of the liver is present. There is no intrahepatic mass. The gallbladder is normal. No calcified gallstones or biliary obstruction. Pancreatic atrophy is present. The spleen is normal in size with scattered calcified granulomas. Normal left adrenal gland. Left kidney normal. Normal right kidney. Stable nodule within the right adrenal gland measuring 2.1 cm. Small hiatal hernia is present measuring 2.5 cm. Postoperative changes to the stomach. Hyperdense material within the duodenum, incidental. Normal appearance of the jejunum. Normal ileum. Postop changes of appendectomy/right hemicolectomy. Chronic diverticulosis. Chronic mixed density structure adjacent to the sigmoid colon on the right. Bladder normal. No bladder stone. Both ureters are unremarkable. The prostate is upper limits of normal in size. No intra-abdominal or intrapelvic adenopathy. Small fat filled right inguinal hernia. Chronic mild wedging of T12. Degenerative disc disease and facet degeneration lower lumbar spine. No acute fracture or suspicious osseous lesion. 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 Impression: No significant change since the prior examination. No evidence of metastatic disease or tumor recurrence. Please note that all CT scans at this facility use dose modulation, iterative reconstruction, and/or weight-based dosing when appropriate to reduce radiation dose to as low as reasonably achievable. Dictated by Fredrick Sears MD @ 05/15/2022 12:35:39 PM (Electronically Signed)
== END 2022-05-15 10:05 | disposition home or self-care (01) ==
LOC: CT 10:08
PROVIDERS: PCP Emergency Medicine; Visit Provider Internal Medicine Hematology & Oncology
DX: C49.A0 Gastrointestinal stromal tumor, unspecified site (principal)
CPT/HCPCS: 36415; 74177; 82565; Q9967

== ENCOUNTER 2022-05-22 13:38 | Outpatient (RCR) | payer MEDICARE, BC, SELFPAY | END 2022-11-18 23:59 | disposition home or self-care (01) | LOC: CCIC 13:38 | PROVIDERS: PCP Emergency Medicine; Visit Provider Internal Medicine Medical Oncology | DX: C49.A0 Gastrointestinal stromal tumor, unspecified site (principal) | CPT/HCPCS: 99212; 99214 ==

== ENCOUNTER 2022-05-23 13:23 | Outpatient (CLI) | payer MEDICARE, BC, SELFPAY ==
[2022-05-23 21:38] LABS: Chloride* 104 mmol/L (96-114); Potassium* 4.8 mmol/L (3.6-5.1); Sodium* 136 mmol/L (135-149)
[2022-05-23 21:40] LABS: Cholesterol* 148 mg/dL (90-199)
[2022-05-23 21:41] LABS: Blood Urea Nitrogen* 19 mg/dL (7-30); Calcium* 8.4 mg/dL (8.4-10.6); Carbon Dioxide* 27 mmol/L (20-32); Creatinine* 1.4 mg/dL (0.5-1.5); Estimated Glomerular Filt Rate 49 ml/min; Glucose* 122 mg/dL (60-115); Triglycerides* 118 mg/dL (40-149)
[2022-05-23 21:42] LABS: HDL Cholesterol* 67 mg/dL (>=40); LDL Cholesterol Calculated 57 mg/dL (<100)
[2022-05-23 22:10] LABS: PSA Screen* 2.85 ng/mL (0.10-4.00)
[2022-05-23 22:13] LABS: Microalbumin Creatinine Ratio 10 mg/g (0-30); Microalbumin Urine 2 mg/dL
== END 2022-05-23 13:24 | disposition home or self-care (01) ==
PROVIDERS: PCP Emergency Medicine; Visit Provider Emergency Medicine
DX: Z00.00 Encounter for general adult medical examination without abnormal findings (principal); E78.5 Hyperlipidemia, unspecified; E11.9 Type 2 diabetes mellitus without complications; I10 Essential (primary) hypertension; Z12.5 Encounter for screening for malignant neoplasm of prostate
CPT/HCPCS: 80048; 80061; 82043; 82570; 84153

== ENCOUNTER 2022-06-19 13:58 | Outpatient (CLI) | payer MEDICARE, BC, SELFPAY | END 2022-06-19 13:59 | disposition home or self-care (01) | LOC: US 13:58 | PROVIDERS: PCP Emergency Medicine; Visit Provider Emergency Medicine | DX: R09.89 Other specified symptoms and signs involving the circulatory and respiratory systems (principal); L81.9 Disorder of pigmentation, unspecified | CPT/HCPCS: 93922 ==

== ENCOUNTER 2022-11-22 10:26 | Outpatient (CLI) | payer MEDICARE, BC, SELFPAY | END 2022-11-22 10:27 | disposition home or self-care (01) | PROVIDERS: PCP Emergency Medicine; Visit Provider Emergency Medicine | DX: E11.9 Type 2 diabetes mellitus without complications (principal); D53.9 Nutritional anemia, unspecified; R74.01 Elevation of levels of liver transaminase levels; Z12.5 Encounter for screening for malignant neoplasm of prostate | CPT/HCPCS: 82607; 82728; 82746 ==

== ENCOUNTER 2022-11-23 14:39 | Outpatient (CLI) | payer MEDICARE, BC, SELFPAY | END 2022-11-23 14:40 | disposition home or self-care (01) | LOC: LKVREF 14:39 | PROVIDERS: PCP Emergency Medicine; Visit Provider Emergency Medicine | DX: D53.9 Nutritional anemia, unspecified (principal); E11.9 Type 2 diabetes mellitus without complications | CPT/HCPCS: 82746 ==

== ENCOUNTER 2023-05-21 10:11 | Outpatient (CLI) | payer MEDICARE, BC, SELFPAY ==
--- NOTE | 2023-05-21 11:00 | CRLHL7_ITS ---
For Patients: As a result of the Century Cures Act, medical imaging exams and procedure reports are released immediately into your electronic medical record. You may view this report before your referring provider. If you have questions, please contact your health care provider. 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 HX MASS RIGHT ADRENAL GLAND, GERD Technique: CT Abdomen/Pelvis W/ 120CC ISOVUE-370 Please note that all CT scans at this facility use dose modulation, iterative reconstruction, and/or weight-based dosing when appropriate to reduce radiation dose to as low as reasonably achievable. Comparison: 05/15/2022 Findings: Mild fibrotic change within both lung bases. No pleural effusion. 2.9 cm hiatal hernia. Fatty liver. No intrahepatic mass. Gallbladder normal. No calcified gallstone. No biliary obstruction. Diminutive pancreatic parenchyma. Splenic calcifications. Left adrenal gland normal. Kidneys unremarkable. 2 cm right adrenal gland nodule is unchanged. Atherosclerotic changes are chronic mild hazy density involving the central mesenteric fat along with subcentimeter mesenteric lymph nodes compatible with incidental mesenteric panniculitis. Atherosclerotic changes. No aneurysm. The bladder is normal. Incomplete descent of the left testicle. Postop changes of partial colectomy. No bowel obstruction or free air. No free fluid. No abscess. No enlarged lymph nodes. Chronic right lateral rib fracture deformity. Prominent degenerative facet arthropathy lower lumbar spine. No vertebral body compression fracture. Degenerative spurring of both hips. Impression: Stable postop changes. Stable right adrenal nodule. Please note that all CT scans at this facility use dose modulation, iterative reconstruction, and/or weight-based dosing when appropriate to reduce radiation dose to as low as reasonably achievable. Dictated by Fredrick Saers MD @ 05/21/2023 12:06:48 PM (Electronically Signed)
== END 2023-05-21 10:12 | disposition home or self-care (01) ==
LOC: CT 10:11
PROVIDERS: PCP Emergency Medicine; Visit Provider Internal Medicine Medical Oncology
DX: C49.A0 Gastrointestinal stromal tumor, unspecified site (principal); E27.8 Other specified disorders of adrenal gland
CPT/HCPCS: 36415; 74177; 80053; 85025; Q9967

== ENCOUNTER 2023-05-23 14:00 | Outpatient (RCR) | payer MEDICARE, BC, SELFPAY ==
[2023-05-21 10:32] LABS: Basophils Absolute Auto 0.02 K/uL (0.00-0.30); Basophils Percent Auto 0.3 % (0.0-3.0); Eosinophils Percent Auto 7.4 % (0.0-7.0); Hematocrit 41.1 % (37.0-53.0); Hemoglobin* 13.6 gm/dL (13.5-17.5); Immature Granulocytes Abs Auto 0.09 K/uL (0.00-0.30); Immature Granulocytes Pct Auto 1.4 %; Lymphocytes Absolute Auto 2.58 K/uL (0.90-2.90); Lymphocytes Percent Auto 41.5 % (20-44); Mean Corpuscular HGB Conc 33 gm/dL (32-36); Mean Corpuscular Hemoglobin 34 pg (26-34); Mean Corpuscular Volume 101 fL (80-100); Monocytes Percent Auto 6.4 % (0.0-11.0); Neutrophils Absolute Auto 2.67 K/uL (1.7-7.0); Platelet Count* 164 K/uL (140-440); RDW Coefficient of Variation % 12.4 % (11.5-15.5); Red Blood Count 4.06 m/uL (4.30-5.90); White Blood Count* 6.22 K/uL (4.50-11.00)
[2023-05-21 10:33] LABS: Slide Review Reflex No
[2023-05-21 10:48] LABS: Chloride* 99 mmol/L (96-114)
[2023-05-21 10:49] LABS: Albumin* 4.4 g/dL (3.3-5.0); Sodium* 135 mmol/L (135-149)
[2023-05-21 10:51] LABS: Bilirubin Total* 0.5 mg/dL (0.1-1.5); Creatinine* 1.8 mg/dL (0.5-1.5); Estimated Glomerular Filt Rate 36 ml/min
[2023-05-21 10:52] LABS: Alanine Aminotransferase* 40 U/L (4-50); Alkaline Phosphatase* 68 U/L (40-150); Anion Gap 10 mEq/L (7-15); Aspartate Amino Transferase* 51 U/L (12-35); Blood Urea Nitrogen* 30 mg/dL (7-30); Calcium* 8.9 mg/dL (8.4-10.6); Carbon Dioxide* 26 mmol/L (20-32); Glucose* 116 mg/dL (60-115); Total Protein* 6.9 g/dL (6.0-8.3)
== END 2023-11-17 23:59 | disposition home or self-care (01) ==
LOC: CCIC 14:00
PROVIDERS: Internal Medicine Medical Oncology; PCP Emergency Medicine; Referring Provider Emergency Medicine; Visit Provider Internal Medicine Hematology & Oncology
DX: C49.A0 Gastrointestinal stromal tumor, unspecified site (principal); Z90.3 Acquired absence of stomach [part of]
CPT/HCPCS: 36415; 80053; 85025; 99214; G0463

== ENCOUNTER 2023-06-14 09:39 | Outpatient (CLI) | payer MEDICARE, BC, SELFPAY ==
--- OUTSIDE RECORDS SUMMARY | 2023-06-14 09:43 | XMS_ITS | Continuity of Care Document ---
Author Name [facility] Organization [facility] Care Team Providers Care Yeast Maker Name Role Phone [facility] Unavailable Unavailable Problems Combined list of problems from [facility] and [facility] facilities. It does not include entries that were removed or entered in error. 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 Active Condition [facility] Essential hypertension Active Condition [facility] Gastro-esophageal reflux disease without esophagitis Active Condition [facility] Hyperlipidemia Active Condition [facility] Obstructive sleep apnea of adult Active Condition [facility] Type 2 diabetes mellitus without complication Active Condition [facility] Diagnosis: ICD-10-CM Z46.1 Encounter for fitting and adjustment of hearing aid Active Diagnosis [facility] Medications Combined list of outpatient medications from [facility] and [facility] facilities.Medications provided include 1) outpatient medications from the last 15 months, and 2) patient-reported medications. Medication Details Route Status Patient Instructions Prescription Expires Prescription Number Last Dispense Date Ordering Provider Order Date Source ALLOPURINOL 300MG TAB TAKE ONE TABLET BY MOUTH EVERY DAY ORALLY ACTIVE ABBYBUTCH January 2016 [facility] ASPIRIN 81MG TAB,EC TAKE ONE TABLET BY MOUTH EVERY DAY ORALLY ACTIVE ABBYBUTCH LEWIS January 2016 [facility] ESCITALOPRA M TAB,ORAL TAKE 5MG BY MOUTH EVERY DAY ORALLY ACTIVE ABBYBUTCH LEWIS 2016 [facility] GLIPIZIDE 2.5MG TAB,SA TAKE ONE TABLET BY MOUTH EVERY DAY ORALLY ACTIVE ABBYBUTCH LEWIS January 2016 [facility] LISINOPRIL 40MG TAB TAKE ONE-HALF TABLET BY MOUTH EVERY DAY ORALLY ACTIVE ABBYBUTCH LEWIS 2016 [facility] METOPROLOL TARTRATE TAB TAKE 50MG QAM AND 25MG QPM BY MOUTH ORALLY ACTIVE ABBY,BUTCH LEWIS January 2016 [facility] MULTIVITAMI NS CAP/TAB TAKE ONE TABLET BY MOUTH EVERY DAY ORALLY ACTIVE ABBYBUTCH 2016 [facility] OMEPRAZOLE 20MG CAP,EC TAKE 1 CAPSULE BY MOUTH EVERY DAY ORALLY ACTIVE ABBYBUTCH 2016 [facility] SIMVASTATIN 80MG TAB TAKE ONE-HALF TABLET BY MOUTH AT BEDTIME ORALLY ACTIVE ABBYBUTCH 2016 [facility] Immunizations Combined list of available immunizations from the Department of [facility] and [facility] facilities. Immunization Series Date Given Administered By Site Reaction Lot Number CVX Code Drug Tooth Grinder Status Comments Source COVID-19 (GetBack), MRNA, LNP-S, PF, 30 MCG/0.3 ML DOSE 2 2020 208 complet ed PFR; [id number]; 1 [facility] COVID-19 (GetBack), MRNA, LNP-S, PF, 30 MCG/0.3 ML DOSE 1 2020 208 complet ed PFR; [id number]; 1 [facility] ZOSTER LIVE 2016 121 complet ed [employer], [id number], 02/22/18 [facility] PNEUMOCOCCAL CONJUGATE PCV 13 2014 133 complet ed [employer] TDAP 2009 115 complet ed [facility] PNEUMOCOCCAL POLYSACCHARID E [id number] 2008 33 complet ed [employer] Encounters Combined list of: 1) Encounters from Department of [facility] Affairs facilities going back up to thelast 18 months. 2) Encounters from the Department of [facility] facilities going back up to 280 months. Location Location Details Encounter Type Encounter Number Reason For Visit Attending Provider ADM Date DC Date Status Disposition Source [facility] Outpatient Encounter [id number] 09/12 [facility] HEARING AID FITTING/CH ECKING [id number] Diagnos is: ICD-10- CM Z46.1 Encount er for fitting and adjustm ent of hearing aid<br/ > KAPIL DISLA 11/10 [facility] Social History Combined list of available smoking, tobacco, and other social history from Department of Defense and Veterans Affairs facilities. Social History Type Response Date Comment Sour e Tobacco smoking status NHIS FORMER TOBACCO USER 7Y OR GREATER 01/22/2017 [facility]
--- OUTSIDE RECORDS SUMMARY | 2023-06-14 09:43 | XMS_ITS | Clinical Summary ---
Author Name Unknown Organization [place] Address [facility] [place] [address] Care Team Providers Care Dry Janitor Name Role Phone [facility], [facility]- Primary Care Provider Allergies No known active allergies Medications Medication Sig Dispensed Refills Start Date End Date Status aspirin 81 MG tablet Take 1 tablet by mouth daily. 0 Active lisinopril-hydrochlo rothiazide (PRINZIDE,ZESTORETIC ) 20-25 MG per tablet Take 1 tablet by mouth daily. 0 Active atenolol (TENORMIN) 50 MG tablet Take 50 mg by mouth daily. 0 Active allopurinol (ZYLOPRIM) 300 MG tablet Take 300 mg by mouth daily. 0 Active simvastatin (ZOCOR) 40 MG tablet Take 40 mg by mouth At Bedtime. 0 Active Omeprazole 20 MG tablet Take 20 mg by mouth daily. 0 Active FISH OIL 0 Active acetaminophen (TYLENOL) 325 MG tabletIndications:Ab rasion of right knee, initial encounter Take 2 tablets (650 mg) by mouth every 4 hours as needed for mild pain 0 12/16/2019 Active thiamine (B-1) 100 MG tabletIndications:Al coholic intoxication without complication (H24) Take 1 tablet (100 mg) by mouth daily Future refills by PCP [facility]- [facility] with phone number [phone]. 30 tablet 0 12/23/2019 Active glucose (BD GLUCOSE) 4 g chewable tabletIndications:Hy poglycemia Take 1 tablet by mouth every hour as needed for low blood sugar (For low blood sugars under 80) Please recheck your blood sugar after taking this to make sure it is coming up. 10 tablet 0 12/16/2019 Active Active Problems Problem Noted Date Diagnosed Date Hypoglycemia 12/16/2019 Immunizations Name Administration Dates Next Due TD,PF 7+ (Tenivac) 02/17/2011 Social History Tobacco Use Types Packs/Day Years Used Date Smoking Tobacco: Former Alcohol Use Standard Drinks/Week Comments Yes 0.8 (1 standard drink = 0.6 oz p ure alcohol) Adolescent Education Answer Date Record ed Getting School Help Needed Not on file 02/04 Sex and Gender Information Value Date Recorded Sex Assigned at Not on file Gender Identity Not on file Sexual Orientation Not on file Last Filed Vital Signs Vital Sign Reading Time Taken Comments Blood Pressure 132/56 12/16/2019 7:41 AM CDT Pulse 69 12/16/2019 12:30 AM CDT Temperature 35.9 ??C (96.7 ??F) 12/16/2019 7:41 AM CD T Respiratory Rate 20 12/16/2019 7:41 AM CDT Oxygen Saturation 96% 12/16/2019 7:41 AM CDT Inhaled Oxygen Concentration - - Weight 112.4 kg (247 lb 12.8 oz) 2019 12:54 AM CDT Height 182.9 cm (6') 12/16/2019 12:54 AM CDT Body Mass Index 33.61 12/16/2019 12:54 AM CDT Plan of Treatment Health Maintenance Due Date Last Done Comments ADVANCE CARE PLANNING 1935 ANNUAL REVIEW OF HM ORDERS 1935 LIPID 1935 COVID-19 Vaccine (#1) 1935 RSV VACCINE ( & 60+) (1 - 1-dose 60+ series) 1996 FALL RISK ASSESSMENT 01/06/2001 MEDICARE ANNUAL WELLNESS VISIT 01/06/2001 DTAP/TDAP/TD IMMUNIZATION (1 - Tdap) 02/18/2011 02/17/2011, 01/26/2009 ZOSTER IMMUNIZATION (3 of 3) 08/21/2018 06/26/2018, 01/22/2017 INFLUENZA VACCINE (#1) 2022 9, 02/19/2017, 03/15/2016, Additional history exists PHQ-2 (once per calendar year) 2023 Pneumococcal Vaccine: 65+ Years Completed 02/03/2015, 01/28/2015, 01/26/2009 HPV IMMUNIZATION Aged Out No longer e ligible based on patient's age to complete this topic IPV IMMUNIZATION Aged Out No longer e ligible based on patient's age to complete this topic MENINGITIS IMMUNIZATION Aged Out No l onger eligible based on patient's age to complete this topic RSV MONOCLONAL ANTIBODY Aged Out No l onger eligible based on patient's age to complete this topic Advance Directives For more information, please contact: [phone] Latest Code Status on File Code Status Date Activated Date Inactivated Comments Full Code 12/16/2019 12:50 AM 12/16/2019 12:42 PM All basic and advanced life-sustaining interventions are performed as appropriate Question Answer Comments Code status determined by: Discussion with patient/ legal decision maker Care Teams Dry Janitor Relationship Specialty Start Date End Date [facility]- [address] [place] [address] PCP - General 12/16/19
--- OUTSIDE RECORDS SUMMARY | 2023-06-14 09:43 | XMS_ITS | Clinical Summary ---
Author Name Unknown Organization [facility] Address [place], [place] [address] Care Team Providers Care Sample Color Maker Name Role Phone Antonio Cummings MD Primary Care Provider [phone] Allergies No known active allergies Medications Medication Sig Dispensed Refills Start Date End Date Status simvastatin (ZOCOR) 40 mg tabletIndication s:hypercholester olemia Take 40 mg by mouth at bedtime. Indications: HYPERCHOLESTEROLEMIA 0 Active allopurinol (ZYLOPRIM) 300 mg tabletIndication s:gout Take 300 mg by mouth once daily. Indications: GOUT 0 Act gianna omeprazole (PRILOSEC) 20 mg Delayed-Release capsuleIndicatio ns:gastroesophag eal reflux disease Take 20 mg by mouth once daily before a meal. Indications: GASTROESOPHAGEAL REFLUX 0 Acti ve aspirin (ECOTRIN) 81 mg enteric coated tablet Take 81 mg by mouth once daily with a meal. 0 Active acetaminophen (TYLENOL) 325 mg tabletIndication s:pain Take 325-650 mg by mouth every 4 hours if needed. Max acetaminophen dose: 4000mg in 24 hrs. Indications: Pain 0 Active hydroCHLOROthiaz brenda 12.5 mg capsule Take 12.5 mg by mouth once daily. 0 Active lisinopriL (PRINIVIL; ZESTRIL) 20 mg tablet Take 20 mg by mouth once daily. 0 Active ESCITALOPRAM OXALATE ORAL Take 5 mg by mouth at bedtime. 0 Active multivit-min/FA/ lycopen/lutein (CENTRUM SILVER MEN ORAL) Take 1 Tab by mouth. 0 Acti ve metoprolol succinate 50 mg CSpX Take 50 mg by mouth once daily. 0 Active gabapentin (NEURONTIN) 100 mg capsule Take 100 mg by mouth 3 times daily. 0 Active multivit,thx,sanya cium,iron,mins (MULTIVITAMIN AND MINERAL ORAL) Take 1 Tablet by mouth 2 times daily. 0 Active Active Problems Problem Noted Date Diagnosed Date DAQUAN (acute kidney injury) 12/12/2014 Obesity 12/12/2014 DM (diabetes mellitus) type II controlled with renal manifestation 12/12/2014 HTN (hypertension) 12/12/2014 Gastroesophageal reflux disease without esophagi tis 12/12/2014 Gout 12/12/2014 Incidental lung nodule, > 3mm and < 8mm 12/13/19 Family History Medical History Relation Name Comments Good Health Mother Relation Name Status Comments Mother Social History Tobacco Use Types Packs/Day Years Used Date Smoking Tobacco: Former Cigarettes 1 30 0 12/12/1974 - 12/12/2004 Smokeless Tobacco: Never Alcohol Use Standard Drinks/Week Comments Yes 7 (1 standard drink = 0.6 oz pur e alcohol) daily Sex and Gender Information Value Date Recorded Sex Assigned at Not on file Gender Identity Not on file Sexual Orientation Not on file Obstetrics History Last Filed Vital Signs Vital Sign Reading Time Taken Comments Blood Pressure 146/67 09/23/2021 12:30 PM CDT Pulse 68 09/23/2021 12:30 PM CDT Temperature 36.6 ??C (97.8 ??F) 09/23/2021 12:04 PM C DT Respiratory Rate 16 09/23/2021 12:30 PM CDT Oxygen Saturation 97% 09/23/2021 12:30 PM CDT Inhaled Oxygen Concentration - - Weight 111.6 kg (246 lb 1 oz) 06/15/2021 1:10 PM STATION MANAGER Height 180.3 cm (5' 11) 06/15/2021 1:10 PM STATION MANAGER Body Mass Index 34.32 06/15/2021 1:10 PM STATION MANAGER Plan of Treatment Health Maintenance Due Date Last Done Comments Tdap 01/06/1946 Depression screening for age 12+ 1948 BMI (ht and wt on same day) for age 18+ 01/06/1954 Tetanus booster 1956 Zoster (shingles) series for age 50+ (1 of 2) 01/06/1986 Pneumococcal series for age 65+ (1 of 1 - PCV) 01/06/2001 COVID-19 vaccine series ( season) 2022 01/18/2022, 09/22/2021, 03/11/2021 Influenza for age 65+ 12/29/2022 Advance Directives Latest Code Status on File Code Status Date Activated Date Inactivated Comments Full Code 06/16/2021 7:49 AM 06/16/2021 11:49 AM Question Answer Comments Code Status Discussion: Reviewed Preferences Code Status History Code Status Date Activated Date Inactivated Comments Full Code 09/02/2020 9:40 AM 09/02/2020 1:41 PM Question Answer Comments Code Status Discussion: Discussed Full Code 06/03/2020 9:18 AM 06/03/2020 1:20 PM Question Answer Comments Code Status Discussion: Discussed Full Code 01/22/2020 8:44 AM 01/22/2020 4:02 PM Question Answer Comments Code Status Discussion: Discussed Full Code 12/12/2014 11:35 PM 12/13/2014 8:02 PM Care Teams Sample Color Maker Relationship Specialty Start Date End Date Antonio Cummings MD [address] [place] [address] PCP - General Family Practice 05/04/14
--- OUTSIDE RECORDS SUMMARY | 2023-06-14 09:43 | XMS_ITS | Referral Summary ---
Author Name Unknown Organization [place] Address [address] [place] [address] Care Team Providers Care Chemical Pathologist Name Role Phone [facility], [facility]- Primary Care Provider Allergies No known active [...] by mouth daily Future refills by PCP [facility]- [facility] with phone number [phone]. 30 tablet 0 12/23/2019 Active glucose (BD [...] 12/16/2019 12:54 AM CDT Plan of Treatment Not on file Advance Directives For more information, please contact: [phone] Latest Code Status on File Code Status Date Activated Date Inactivated Comments Full Code 12/16/2019 12:50 AM 12/16/2019 12:42 PM All basic and advanced life-sustaining interventions are performed as appropriate Question Answer Comments Code status determined by: Discussion with patient/ legal decision maker Care Teams Chemical Pathologist Relationship Specialty Start Date End Date [facility]- [address] [place] [address] PCP - General 12/16/19
== END 2023-06-14 09:40 | disposition home or self-care (01) ==
PROVIDERS: PCP Emergency Medicine; Visit Provider Emergency Medicine
DX: E11.9 Type 2 diabetes mellitus without complications (principal); E78.2 Mixed hyperlipidemia; Z12.5 Encounter for screening for malignant neoplasm of prostate; D53.9 Nutritional anemia, unspecified
CPT/HCPCS: 80048; 80061; 82043; 82570; 82728; 83540; 83550; G0103

== ENCOUNTER 2024-01-03 13:31 | Outpatient (CLI) | payer MEDICARE, BC, SELFPAY ==
--- OUTSIDE RECORDS SUMMARY | 2024-01-03 13:35 | XMS_ITS | Continuity of Care Document ---
Author Name [facility] Organization [facility] Care Team Providers Care Customer Liaison Name Role Phone [facility] Unavailable Unavailable Problems Combined list of problems from Department [facility] and Veterans Affairs facilities. It does not include entries that were removed or entered in error. 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 Active Condition [facility] Essential hypertension Active Condition [facility] Gastro-esophageal reflux disease without esophagitis Active Condition [facility] Hyperlipidemia Active Condition [facility] Obstructive sleep apnea of adult Active Condition [facility] Type 2 diabetes mellitus without complication Active Condition [facility] Diagnosis: ICD-10-CM Z46.1 Encounter for fitting and adjustment of hearing aid Active Diagnosis [facility] Medications Combined list of outpatient medications from Department of [facility] and [facility] facilities.Medications provided include 1) outpatient medications from the last 15 months, and 2) patient-reported medications. Medication Details Route Status Patient Instructions Prescription Expires Prescription Number Last Dispense Date Ordering Provider Order Date Order Qty Source ALLOPURINOL 300MG TAB ALLOPURI NOL 300MG TAB Non-VA TAKE ONE TABLET BY MOUTH EVERY DAY Jan 18, 2017 Non-VA Document ed by: YARA MORA Document ed at: [facility] ORAL ACTIVE BUTCH MORA 2016 [facility] ASPIRIN 81MG TAB,EC ASPIRIN 81MG TAB,EC Non-VA TAKE ONE TABLET BY MOUTH EVERY DAY Jan 18, 2017 Non-VA Document ed by: YARA MORA Document ed at: [facility] ORAL ACTIVE BUTCH MORA 2016 [facility] ESCITALOPRA M TAB,ORAL ESCITALO PRAM TAB,ORAL Non-VA TAKE 5MG BY MOUTH EVERY DAY Jan 18, 2017 Non-VA Document ed by: YARA MORA Document ed at: [facility] ORAL ACTIVE BUTCH MORA 2016 [facility] GLIPIZIDE 2.5MG TAB,SA GLIPIZID E 2.5MG TAB,SA Non-VA TAKE ONE TABLET BY MOUTH EVERY DAY Jan 18, 2017 Non-VA Document ed by: YARA MORA Document ed at: [facility] ORAL ACTIVE BUTCH MORA 2016 [facility] LISINOPRIL 40MG TAB LISINOPR IL 40MG TAB Non-VA TAKE ONE-HALF TABLET BY MOUTH EVERY DAY Jan 18, 2017 Non-VA Document ed by: YARA MORA Document ed at: [facility] ORAL ACTIVE BUTCH MORA 2016 [facility] METOPROLOL TARTRATE TAB METOPROL OL TARTRATE TAB Non-VA TAKE 50MG QAM AND 25MG QPM BY MOUTH Jan 18, 2017 Non-VA Document ed by: YARA MORA Document ed at: [facility] ORAL ACTIVE BUTCH MORA 2016 [facility] MULTIVITAMI NS CAP/TAB MULTIVIT AMINS CAP/TAB Non-VA TAKE ONE TABLET BY MOUTH EVERY DAY Jan 18, 2017 Non-VA Document ed by: YARA MORA Document ed at: [facility] ORAL ACTIVE BUTCH MORA 2016 [facility] OMEPRAZOLE 20MG CAP,EC OMEPRAZO LE 20MG CAP,EC Non-VA TAKE 1 CAPSULE BY MOUTH EVERY DAY Jan 18, 2017 Non-VA Document ed by: YARA MORA Document ed at: [facility] ORAL ACTIVE BUTCH MORA 2016 [facility] SIMVASTATIN 80MG TAB SIMVASTA TIN 80MG TAB Non-VA TAKE ONE-HALF TABLET BY MOUTH AT BEDTIME Jan 18, 2017 Non-VA Document ed by: YARA MORA Document ed at: [facility] ORAL ACTIVE BUTCH MORA 2016 [facility] Immunizations Combined list of available immunizations from the Department of Defense and Veterans Affairs facilities. Immunization Series Date Given Administered By Site Reaction Lot Number CVX Code Drug Exhibit Designer Status Comments Source COVID-19 ([employer]), MRNA, LNP-S, PF, 30 MCG/0.3 ML DOSE 2 2020 208 complet ed PFR; [id number]; 1 [facility] COVID-19 (PFIZER), MRNA, LNP-S, PF, 30 MCG/0.3 ML DOSE 1 2020 208 complet ed PFR; [id number]; 1 [facility] ZOSTER LIVE 2016 121 complet ed [employer], [id number], 02/22/18 [facility] PNEUMOCOCCAL CONJUGATE PCV 13 2014 133 complet ed [facility] TDAP 2009 115 complet ed [facility] PNEUMOCOCCAL POLYSACCHARID E [id number] 2008 33 complet ed [facility] Encounters Combined list of: 1) Encounters 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 Location Location Details Encounter Type Encounter Number Reason For Visit Attending Provider ADM Date DC Date Status Disposition Source [facility] Outpatient Encounter [id number] 09/12 [facility] HEARING AID FITTING/CH ECKING [id number] Diagnos is: ICD-10- CM Z46.1 Encount er for fitting and adjustm ent of hearing aid<br/ > KAPIL DISLA H 11/10 [facility] Social History Combined list of available smoking, tobacco, and other social history from Department of Defense and Veterans Affairs facilities. Social History Type Response Date Comment Sourc e Tobacco smoking status NHIS FORMER TOBACCO USER 7Y OR GREATER 01/22/2017 [facility]
== END 2024-01-03 13:32 | disposition home or self-care (01) ==
PROVIDERS: PCP Emergency Medicine; Visit Provider Emergency Medicine
DX: R97.20 Elevated prostate specific antigen [PSA] (principal); I10 Essential (primary) hypertension; D53.9 Nutritional anemia, unspecified; Z12.5 Encounter for screening for malignant neoplasm of prostate
CPT/HCPCS: 80048; 82607; 82728; G0103

== ENCOUNTER 2024-02-07 11:18 | Outpatient (CLI) | payer MEDICARE, BC, SELFPAY ==
--- OUTSIDE RECORDS SUMMARY | 2024-02-10 07:47 | XMS_ITS | Referral Summary ---
Author Organization [place] Address [facility] [place] [address] Care Team Providers Care Software Sales Name Role Phone [facility], [facility]- Primary Care Provider Allergies No known active allergies Medications Medication Sig Dispensed Refills Start Date End Date Status aspirin 81 MG tablet Take 1 tablet by mouth daily. Active lisinopril-hydrochlo rothiazide (PRINZIDE,ZESTORETIC ) 20-25 MG per tablet Take 1 tablet by mouth daily. Active atenolol (TENORMIN) 50 MG tablet Take 50 mg by mouth daily. Active allopurinol (ZYLOPRIM) 300 MG tablet Take 300 mg by mouth daily. Active simvastatin (ZOCOR) 40 MG tablet Take 40 mg by mouth At Bedtime. Active Omeprazole 20 MG tablet Take 20 mg by mouth daily. Active FISH OIL Active acetaminophen (TYLENOL) 325 MG tabletIndications:Ab rasion of right knee, initial encounter Take 2 tablets (650 mg) by mouth every 4 hours as needed for mild pain 12/16/2019 Active thiamine (B-1) 100 MG tabletIndications:Al coholic intoxication without complication (H) Take 1 tablet (100 mg) by mouth daily Future refills by PCP [facility] with phone number [phone]. 30 tablet 12/23/2019 Active glucose (BD GLUCOSE) 4 g chewable tabletIndications:Hy poglycemia Take 1 tablet by mouth every hour as needed for low blood sugar (For low blood sugars under 80) Please recheck your blood sugar after taking this to make sure it is coming up. 10 tablet 12/16/2019 Active Active Problems Problem Noted Date [...] Advance Directives For more information, please contact: [phone] * Full Code (Latest Code Status on File) Date Activated Date Inactivated Comments 12/16/2019 12:50 AM 12/16/2019 12:42 PM All basic and advanced life-sustaining interventions are performed as appropriate Question Answer Comments Code status determined by: Discussion with kalen nt/ legal decision maker Care Teams Software Sales Relationship Specialty Start Date End Date [facility]- [address] [place] [address] PCP - General 12/16/19
--- OUTSIDE RECORDS SUMMARY | 2024-02-10 07:47 | XMS_ITS | Clinical Summary ---
Author Organization [place] Address [facility] [place] [address] Care Team Providers Care Digital Print Operator Name Role Phone [facility], [facility]- Primary Care Provider Allergies No known active [...] by mouth daily Future refills by PCP [facility]- [facility] with phone number [phone]. 30 tablet 12/23/2019 Active glucose (BD GLUCOSE) [...] Advance Directives For more information, please contact: [phone] * Full Code (Latest Code Status on File) Date Activated Date Inactivated Comments 12/16/2019 12:50 AM 12/16/2019 12:42 PM All basic and advanced life-sustaining interventions are performed as appropriate Question Answer Comments Code status determined by: Discussion with kalen nt/ legal decision maker Care Teams Digital Print Operator Relationship Specialty Start Date End Date [facility]- [address] [place] [address] PCP - General 12/16/19
--- OUTSIDE RECORDS SUMMARY | 2024-02-10 07:47 | XMS_ITS | Continuity of Care Document ---
Author Organization [facility] Address [address] [address] [place] [address] Phone Care Team Providers Care Sales Process Manager Name Role Phone Oscar King MD Unavailable Unavailable Medications Medication Instructions Dosage Effective Dates (start - stop) Status Comments glipizide ER 2.5 mg 24 hour Tab take 1 tablet (2.5MG) by ORAL route every day with breakfast 2.5 MG - Active simvastatin 40 mg Tab every day - Acti ve allopurinol 300 mg Tab Take one Tablet by mouth daily - Active Aspirin Low Dose 81 mg Tab, Delayed Release Take 1 tablet by mouth daily - Active lisinopril-hydrochlor othiazide 20 mg-25 mg Tab Take one tablet by mouth daily - Active atenolol 50 mg Tab Take 1 tablet by mimi th daily - Active omeprazole 20 mg Tab, Delayed Release Take one tablet by mouth daily - Active Procedures Procedure Date Ugi Endo; W/bx 1/mx Ugi Endo; W/bx 1/mx Ugi Endo w/ablation Ugi Endo w/ablation Ugi Endo w/ablation Ugi Endo w/ablation Ugi Endo; W/us Guid Asp/bx Colonoscopy Flex; W/remov Les- 13 Level Iv-surg Path Gross/micro 13 0529F Colonoscopy Flex; W/remov Les- 10 Colonoscopy Flex; W/bx 1/mx Level Iv-surg Path Gross/micro 10 Level Iv-surg Path Gross/micro 10 0529F Colonoscopy Flex; W/remov Les- 09 Level Iv-surg Path Gross/micro 09 0529F Level Iv-surg Path Gross/micro 09 Level Iv-surg Path Gross/micro 09 Colonoscopy Flex; W/remov Les- 08 Colonoscopy W/Submucosal Injection Jan- Level Iv-surg Path Gross/micro 08 Level Iv-surg Path Gross/micro 08 Advance Directives Directive Yes / No Effective Date File Name No Information Encounters Encounter Description Practice Location Reason(s) For Visit Diagnoses Date Provider Providers Copied on Encounter [facility], [address] [address], [place], [id number], [place] tel:[phone] [facility] No Information 2 Christine Moore. [address] [place] [address], [address], [id number], [place]. tel:[phone] Antonio Cummings MD. tel:[phone] [facility], [address] [address], [place], [address], [place] tel:[phone] [facility] No Information 2 Christine Moore. [address] [place] [address], [address], [id number], [place]. tel:[phone] Referring Provider: Oscar Morales, [facility] [address], [place], [address] . tel:[phone] [facility], [address] [address], [place], [address], [place] tel:[phone] [facility] Lucas's esophagus with high grade dysplasia 2 Christine Moore. [address] [place] [address], [address], [id number], [place]. tel:[phone] [place], [address] [place], [address]. tel:[phone] [facility], [address] [address], [place], [address], [place] tel:[phone] [facility] No Information 2 Christine Moore. [address] [facility], [place], [place], [address], [place]. tel:[phone] Referring Provider: Oscar Morales, [address] [facility] [address], [place], [address] . tel:[phone] [facility], [address] [address], [place], [address], [place] tel:[phone] [facility] No Information 1 Sixto Dacosta. [address] [place] [address], [facility] [address], [place], [place], [address], [place]. tel:[phone] [facility], [address] [address], [place], [address], [place] tel:[phone] [facility] Lucas's esophagus with low grade dysplasia 1 Christine Moore. [address] [facility], [address], [place], [place], [id number], [place]. tel:[phone] Antonio Cummings MD. tel:[phone] [facility], [address] [address], [place], [address], [place] tel:[phone] [facility] No Information 1 Christine Moore. [address] [place] [address], [address], [place], [place], [address], [place]. tel:[phone] Referring Provider: Oscar Morales, [address] [facility] [address], [place], [address] . tel:[phone] [facility], [address] [address], [place], [address], [place] tel:[phone] [facility] Lucas's esophagus with high grade dysplasia May-0 1 Christine Moore. [address] [facility], [facility] [address], [place], [address], [place]. tel:[phone] [place], [address] [place], [address]. tel:[phone] [facility], [address] [address], [place], [address], [place] tel:[phone] [facility] No Information 0 1 Christine Moore. [address] [facility], [facility] [address], [place], [address], [place]. tel:[phone] [facility], [address] [address], [place], [address], [place] tel:[phone] [facility] No Information 0 Sixto Dacosta. [address] [facility], [facility] [address], [place], [address], [place]. 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 [address] [facility], [facility] [address], [place], [address], [place]. tel:[phone] [place], [address] [place], [address]. tel:[phone] [facility], [address] [address], [place], [address], [place] tel:[phone] [facility] Lucas's esophagus with high grade dysplasia Sep-2 0 Christine Moore. [address] [facility], [facility] [address], [place], [address], [place]. tel:[phone] Antonio Cummings MD. tel:[phone] [facility], [address] [address], [place], [address], [place] tel:[phone] [facility] No Information 0 Christine Moore. [address] [facility], [facility] [address], [place], [place], [address], [place]. [phone] [facility], [address] [address], [place], [address], [place] tel:[phone] [facility] No Information 0 Margi Augustine. [address] [facility], [facility] [address], [place], [address], [place]. [phone] [facility], [address] [address], [place], [address], [place] tel:[phone] [facility] No Information 0 Jocelyne Ruvalcaba. [address] [facility], [facility] [address], [place], [address], [place]. tel:[phone] Referring Provider: Referral Self, USE FOR SELF REFERRALS. [facility], [address] [address], [place], [address], [place] tel:[phone] [facility] Subepithelial gastric massBarrett's esophagus with high grade dysplasia 0 Jocelyne Ruvalcaba. [address] [facility], [facility] [address], [place], [address], [place]. tel:[phone] [facility], [address] [address], [place], [address], [place] tel:[phone] [facility] Polyp-intes/re ct/stom-unc BehDiverticulo sis Of ColonPersonal History Colon PolypsDivertic ulosis Of ColonBenign Neoplasm Colon 3 Eduin Turner. [address] [facility], [facility] [address], [place], [place], [address], [place]. tel:[phone] [facility], [address] [address], [place], [address], [place] tel:[phone] [facility] Polyp-intes/re ct/stom-unc BehColon Cancer ScreeningBenig n Neoplasm Lg BowelPersonal History Colon Polyps 8201 0 Eduin Turner. [address], [address], [place]. tel:[phone] [facility], [address] [address], [facility] [place], [address], [place] tel:[phone] [facility] Personal History Colon PolypsColon Cancer ScreeningPerso nal History Colon PolypsRectal Polyp/BenignBe nign Neoplasm Lg Bowel 9200 9 Eduin Turner. [address], [address], [place]. tel:[phone] [facility], [address] [address], [facility] [place], [address], [place] tel:[phone] [facility] Colon Cancer ScreeningRecta l Polyp/BenignBe nign Neoplasm Lg Bowel 8200 8 Eduin Turner. [address], [address], [place]. tel:[phone] Family History Family Member Type Diagnosis Age At Onset No Information Immunizations Vaccine Date Status Comments influenza, high-dose seasona l, quadrivalent, .7mL dose, preservative free administered Note: [facility] bi-direct ional interface ; Source: Other Registry SARS-COV-2 (COVID-19) vaccin e, mRNA, spike protein, LNP, preservative free, 30 mcg/0.3mL dose administered Note: [facility] bi-direct ional interface ; Source: Other Registry SARS-COV-2 (COVID-19) vaccin e, mRNA, spike protein, LNP, preservative free, 30 mcg/0.3mL dose administered Note: [facility] bi-direct ional interface ; Source: Other Registry SARS-COV-2 (COVID-19) vaccin e, mRNA, spike protein, LNP, preservative free, 30 mcg/0.3mL dose administered Note: [facility] bi-direct ional interface ; Source: Other Registry influenza, high-dose seasona l, quadrivalent, .7mL dose, preservative free administered Note: [facility] bi-direct ional interface ; Source: Other Registry Afluria Qd administered Note: [facility] bi-directional interface ; Source: Other Registry Afluria Qd administered Note: [facility] bi-directional interface ; Source: Other Registry Fluzone Quad 6mo or older administered Note: [facility] bi-direct ional interface ; Source: Other Registry zoster vaccine recombinant administered N ote: [facility] bi-directional interface ; Source: Other Registry influenza, high dose seasona l, preservative-free administered Note: [facility] bi-direct ional interface ; Source: Other Registry influenza, high dose seasona l, preservative-free administered Note: [facility] bi-direct ional interface ; Source: Other Registry influenza, high dose seasona l, preservative-free administered Note: [facility] bi-direct ional interface ; Source: Other Registry Prevnar administered Note: [facility] bi-d irectional interface ; Source: Other Registry Prevnar 13 administered Note: [facility] bi-d irectional interface ; Source: Other Registry influenza, high dose seasona l, preservative-free administered Note: [facility] bi-direct ional interface ; Source: Other Registry influenza, high dose seasona l, preservative-free administered Note: [facility] bi-direct ional interface ; Source: Other Registry influenza, high dose seasona l, preservative-free administered Note: [facility] bi-direct ional interface ; Source: Other Registry tetanus and diphtheria toxoi ds, adsorbed, preservative free, for adult use (5 Lf of tetanus toxoid and 2 Lf of diphtheria toxoid) administered Note: [facility] bi-direct ional interface ; Source: Other Registry Influenza, seasonal, injectable administe red Note: [facility] bi- directional interface ; Source: Other Registry Pneumovax 23 administered Note: [facility] bi-d irectional interface ; Source: Other Registry tetanus and diphtheria toxoi ds, adsorbed, preservative free, for adult use (5 Lf of tetanus toxoid and 2 Lf of diphtheria toxoid) administered Note: [facility] bi-direct ional interface ; Source: Other Registry influenza virus vaccine, unspecified formulation administered Note: [facility] bi-di rectional interface ; Source: Other Registry Payers Payer name Insurance type Covered libertarian ID Authoriza tion(s) No Information Social History Type Description Quantity Date Captured Comments Sex Male Smoking Status No Information Chief Complaint And Reason For Visit No Information Reason For Referral Reason For Referral No Information Plan Of Treatment Date Type Action Status Referral Ordered: referred to Sandy Vasquez MD consideration of GIST resection ordered Referral Ordered: Halo 90 Appointment date/timeframe: 04/14/2020 ordered Referral Ordered: Halo 360 Appointment date/timeframe: 01/22/2020 ordered Referral Ordered: EUS Appointment date/timeframe: 01/22/2020 ordered History Of Present Illness Encounter Date Complaint History Of Prese nt Illness No Information Functional Status Date Functional Assessmen t No Information Instructions Date Instruction Additional Infor mation No Information Assessments Type Assessment Date No Information Patient Care Teams Name Effective Dates (start - stop) Status Members No Information
--- OUTSIDE RECORDS SUMMARY | 2024-02-10 07:47 | XMS_ITS | Clinical Summary ---
Author Organization [facility] Address [place], [place] [address] Care Team Providers Care Finishing Pan Operator Name Role Phone Antonio Cummings MD Primary Care Provider Allergies No known active allergies Medications Medication Sig Dispensed Refills Start Date End Date Status simvastatin (ZOCOR) 40 mg tabletIndication s:hypercholester olemia Take 40 mg by mouth at bedtime. Indications: HYPERCHOLESTEROLEMIA Active allopurinol (ZYLOPRIM) 300 mg tabletIndication s:gout Take 300 mg by mouth once daily. Indications: GOUT Act gianna omeprazole (PRILOSEC) 20 mg Delayed-Release capsuleIndicatio ns:gastroesophag eal reflux disease Take 20 mg by mouth once daily before a meal. Indications: GASTROESOPHAGEAL REFLUX Acti ve aspirin (ECOTRIN) 81 mg enteric coated tablet Take 81 mg by mouth once daily with a meal. Active acetaminophen (TYLENOL) 325 mg tabletIndication s:pain Take 325-650 mg by mouth every 4 hours if needed. Max acetaminophen dose: 4000mg in 24 hrs. Indications: Pain Active hydroCHLOROthiaz brenda 12.5 mg capsule Take 12.5 mg by mouth once daily. Active lisinopriL (PRINIVIL; ZESTRIL) 20 mg tablet Take 20 mg by mouth once daily. Active ESCITALOPRAM OXALATE ORAL Take 5 mg by mouth at bedtime. Active multivit-min/FA/ lycopen/lutein (CENTRUM SILVER MEN ORAL) Take 1 Tab by mouth. Acti ve metoprolol succinate 50 mg CSpX Take 50 mg by mouth once daily. Active gabapentin (NEURONTIN) 100 mg capsule Take 100 mg by mouth 3 times daily. Active multivit,thx,sanya cium,iron,mins (MULTIVITAMIN AND MINERAL ORAL) Take 1 Tablet by mouth 2 times daily. Active Active Problems Problem Noted Date Diagnosed [...] (246 lb 1 oz) 06/15/2021 1:10 PM [employer] Height 180.3 cm (5' 11) 06/15/2021 1:10 PM [employer] Body Mass Index 34.32 06/15/2021 1:10 PM [employer] Plan of Treatment Health Maintenance Due Date Last Done Comments Tdap 01/06/1946 Depression screening for age 12+ 1948 BMI (ht and wt on same day) for age 18+ 01/06/1954 Tetanus booster 1956 Zoster (shingles) series for age 50+ (1 of 2) 01/06/1986 Pneumococcal series for age 65+ (1 of 1 - PCV) 01/06/2001 RSV vaccine for adults or pr egnancy (1 - 1-dose 75+ series) 01/06/2011 COVID-19 vaccine series ( season) 2023 01/18/2022, 09/22/2021, 03/11/2021 Influenza for age 65+ 12/30/2023 Advance Directives * Full Code (Latest Code Status on File) Date Activated Date Inactivated Comments 06/16/2021 7:49 AM 06/16/2021 11:49 AM Question Answer Comments Code Status Discussion: Reviewed Preferences * Full Code Date Activated Date Inactivated Comments 09/02/2020 9:40 AM 09/02/2020 1:41 PM Question Answer Comments Code Status Discussion: Discussed * Full Code Date Activated Date Inactivated Comments 06/03/2020 9:18 AM 06/03/2020 1:20 PM Question Answer Comments Code Status Discussion: Discussed * Full Code Date Activated Date Inactivated Comments 01/22/2020 8:44 AM 01/22/2020 4:02 PM Question Answer Comments Code Status Discussion: Discussed * Full Code Date Activated Date Inactivated Comments 12/12/2014 11:35 PM 12/13/2014 8:02 PM Care Teams Finishing Pan Operator Relationship Specialty Start Date End Date Antonio Cummings MD [address] [place] [address] PCP - General Family Practice 05/04/14
--- OUTSIDE RECORDS SUMMARY | 2024-02-10 07:47 | XMS_ITS | Continuity of Care Document ---
Author Name [facility] Organization [facility] Care Team Providers Care Television Repairer Name Role Phone [facility] Unavailable Unavailable Problems Combined list of problems from [facility] and [facility] facilities. It does not include entries that were removed or entered in error. 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 Active Condition [facility] Essential hypertension Active Condition [facility] Gastro-esophageal reflux disease without esophagitis Active Condition [facility] Hyperlipidemia Active Condition [facility] Obstructive sleep apnea of adult Active Condition [facility] Type 2 diabetes mellitus without complication Active Condition [facility] Diagnosis: ICD-10-CM H90.3 Sensorineural hearing loss, bilateral Active Diagnosis [facility] Diagnosis: ICD-10-CM Z46.1 Encounter for fitting and adjustment of hearing aid Active Diagnosis [facility] Medications Combined list of outpatient medications from [facility] and [facility] facilities.Medications provided include 1) outpatient medications from the last 15 months, and 2) patient-reported medications. Medication Details Route Status Patient Instructions Prescription Expires Prescription Number Last Dispense Date Ordering Provider Order Date Order Qty Source ALLOPURINOL 300MG TAB TAKE ONE TABLET BY MOUTH EVERY DAY ORAL ACTIVE ABBYBUTCH LEWIS 2016 [facility] ASPIRIN 81MG TAB,EC TAKE ONE TABLET BY MOUTH EVERY DAY ORAL [facility] ESCITALOPRA M TAB,ORAL TAKE 5MG BY MOUTH EVERY DAY ORAL ACTIVE [facility] GLIPIZIDE 2.5MG TAB,SA TAKE ONE TABLET BY MOUTH EVERY DAY ORAL ACTIVE [facility] 2016 [facility] LISINOPRIL 40MG TAB TAKE ONE-HALF TABLET BY MOUTH EVERY DAY ORAL ACTIVE [facility] METOPROLOL TARTRATE TAB TAKE 50MG QAM AND 25MG QPM BY MOUTH ORAL ACTIVE ABBYBUTCH 2016 [facility] MULTIVITAMI NS CAP/TAB TAKE ONE TABLET BY MOUTH EVERY DAY ORAL ACTIVE ABBYBUTCH 2016 [facility] OMEPRAZOLE 20MG CAP,EC TAKE 1 CAPSULE BY MOUTH EVERY DAY ORAL ACTIVE ABBYBUTCH 2016 [facility] SIMVASTATIN 80MG TAB TAKE ONE-HALF TABLET BY MOUTH AT BEDTIME ORAL ACTIVE ABBYBUTCH 2016 [facility] Immunizations Combined list of available immunizations from the Department of [facility] and [facility] Affairs facilities. Immunization Series Date Given Administered By Site Reaction Lot Number CVX Code Drug Creative Writing Professor Status Comments Source COVID-19 ([employer]), MRNA, LNP-S, PF, 30 MCG/0.3 ML DOSE 2 2020 208 complet ed PFR; [id number]; 1 [facility] COVID-19 ([employer]), MRNA, LNP-S, PF, 30 MCG/0.3 ML DOSE 1 2020 208 complet ed PFR; [id number]; 1 [facility] ZOSTER LIVE 2016 121 complet ed [employer], [id number], 02/22/18 [facility] PNEUMOCOCCAL CONJUGATE PCV 13 2014 133 complet ed [facility] TDAP 2009 115 complet ed [facility] PNEUMOCOCCAL POLYSACCHARID E [id number] 2008 33 complet ed [facility] Encounters Combined list of: 1) Encounters 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 2) Encounters from the Department of [facility] facilities going back up to 280 months. Location Location Details Encounter Type Encounter Number Reason For Visit Attending Provider ADM Date DC Date Status Disposition Source [facility] Outpatient Encounter [id number] 09/12 [facility] ECK[facility] [id number] Diagnos is: ICD-10- CM Z46.1 Encount er for fitting and adjustm ent of hearing aid<br/ > KAPIL DISLA 11/10 [facility] [place] [facility] OFF/OP EST AUGUST X REQ PHY/QHP [id number] Diagnos is: ICD-10- CM H90.3 Sensori neural hearing loss, bilater al
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 Social History Type Response Date Comment Sourc e Tobacco smoking status NHIS FORMER TOBACCO USER 7Y OR GREATER 01/22/2017 [facility] Plan of Care List of future care activities from Department of Veterans Affairs facilities. Additional future care activities may be listed in the Assessment and Plan section. Date/Time Care Activity Care Activity Detail Facili ty 03/06/2024 AMBULATORY - SURGERY AMBULATORY - SURGERY [facility]
== END 2024-02-07 11:19 | disposition home or self-care (01) ==
LOC: NFLDREF 02-10 07:45
PROVIDERS: PCP Emergency Medicine; Referring Provider Emergency Medicine; Visit Provider Emergency Medicine
DX: D69.6 Thrombocytopenia, unspecified (principal); R97.20 Elevated prostate specific antigen [PSA]
CPT/HCPCS: 84153; 84154

== ENCOUNTER 2024-05-26 12:37 | Outpatient (CLI) | payer MEDICARE, BC, SELFPAY | END 2024-05-26 12:38 | disposition home or self-care (01) | LOC: CT 12:39 | PROVIDERS: PCP Emergency Medicine; Visit Provider Internal Medicine Hematology & Oncology | DX: C49.A0 Gastrointestinal stromal tumor, unspecified site (principal) | CPT/HCPCS: 71260; 74177; Q9967 ==

== ENCOUNTER 2024-06-02 13:30 | Outpatient (RCR) | payer MEDICARE, BC, SELFPAY ==
[2024-05-26 13:26] LABS: Hematocrit 37.4 % (37.0-53.0); Hemoglobin* 12.2 gm/dL (13.5-17.5); Immature Granulocytes Abs Auto 0.08 K/uL (0.00-0.30); Immature Granulocytes Pct Auto 1.1 %; Lymphocytes Absolute Auto 2.84 K/uL (0.90-2.90); Mean Corpuscular HGB Conc 33 gm/dL (32-36); Mean Corpuscular Hemoglobin 34 pg (26-34); Mean Corpuscular Volume 103 fL (80-100); RDW Coefficient of Variation % 12.6 % (11.5-15.5); Red Blood Count 3.62 m/uL (4.30-5.90); White Blood Count* 7.37 K/uL (4.50-11.00)
[2024-05-26 13:38] LABS: Albumin* 4.1 g/dL (3.3-5.0)
[2024-05-26 13:39] LABS: Chloride* 100 mmol/L (96-114); Potassium* 4.7 mmol/L (3.6-5.1); Sodium* 133 mmol/L (135-149)
[2024-05-26 13:41] LABS: Anion Gap 8 mEq/L (7-15); Aspartate Amino Transferase* 46 U/L (12-35); Bilirubin Total* 0.5 mg/dL (0.1-1.5); Carbon Dioxide* 25 mmol/L (20-32); Creatinine* 2.1 mg/dL (0.5-1.5); Estimated Glomerular Filt Rate 30 ml/min
[2024-05-26 13:42] LABS: Alanine Aminotransferase* 28 U/L (4-50); Alkaline Phosphatase* 72 U/L (40-150); Blood Urea Nitrogen* 36 mg/dL (7-30); Calcium* 8.4 mg/dL (8.4-10.6); Glucose* 128 mg/dL (60-115); Total Protein* 6.2 g/dL (6.0-8.3)
[2024-05-26 14:05] LABS: Slide Review Reflex No
== END 2024-11-22 23:59 | disposition home or self-care (01) ==
LOC: CCIC 13:30
PROVIDERS: PCP Emergency Medicine; Referring Provider Emergency Medicine; Visit Provider Internal Medicine Hematology & Oncology
DX: C49.A0 Gastrointestinal stromal tumor, unspecified site (principal)
CPT/HCPCS: 36415; 80053; 85025; 99213; G0463

== ENCOUNTER 2024-07-10 14:09 | Outpatient (CLI) | payer MEDICARE, BC, SELFPAY | END 2024-07-10 14:10 | disposition home or self-care (01) | LOC: LKVREF 14:10 | PROVIDERS: PCP Emergency Medicine; Visit Provider Emergency Medicine | DX: M10.9 Gout, unspecified (principal); N18.30 Chronic kidney disease, stage 3 unspecified; I10 Essential (primary) hypertension; E78.5 Hyperlipidemia, unspecified; F41.9 Anxiety disorder, unspecified; R63.4 Abnormal weight loss; Z13.6 Encounter for screening for cardiovascular disorders | CPT/HCPCS: 80048; 80061; 84550 ==

== ENCOUNTER 2024-10-21 10:47 | Outpatient (CLI) | payer MEDICARE, BC, SELFPAY | END 2024-10-21 10:48 | disposition home or self-care (01) | LOC: NFLDREF 10-23 18:05 | PROVIDERS: PCP Emergency Medicine; Referring Provider Emergency Medicine; Visit Provider Internal Medicine Nephrology | DX: N18.30 Chronic kidney disease, stage 3 unspecified (principal); D69.6 Thrombocytopenia, unspecified; R74.01 Elevation of levels of liver transaminase levels | CPT/HCPCS: 82043; 82570; 84156 ==

== ENCOUNTER 2024-10-30 11:24 | Outpatient (CLI) | payer MEDICARE, BC, SELFPAY ==
--- NOTE | 2024-10-30 11:15 | CRLHL7_ITS ---
For Patients: As a result of the Century Cures Act, medical imaging exams and procedure reports are released immediately into your electronic medical record. You may view this report before your referring provider. If you have questions, please contact your health care provider. CLINICAL HISTORY: Chronic kidney disease, stage 3 COMPARISON: none TECHNIQUE: An scale and color Doppler images were acquired of the kidneys and urinary bladder. FINDINGS: Sonographic images reveal a symmetric appearance of the kidneys. There is no evidence of hydronephrosis, mass or calculus. The right kidney measures 9.3cm in length and the left kidney measures 11.5cm in length. The renal cortex appears of normal thickness. Prevoid bladder volume 32 cc. Postvoid bladder volume 4 cc. Bladder wall measures 6 millimeters. Color Doppler images reveal a normal appearance of both ureteral jets. There is no evidence of bladder calculi or diverticula. IMPRESSION: Normal renal ultrasound. Incomplete prevoid bladder distention. Possible bladder wall thickening. Dictated by Fredrick Sears MD @ 10/30/2024 4:48:42 PM (Electronically Signed)
== END 2024-10-30 11:25 | disposition home or self-care (01) ==
LOC: US 11:25
PROVIDERS: PCP Emergency Medicine; Visit Provider Internal Medicine Nephrology
DX: N18.30 Chronic kidney disease, stage 3 unspecified (principal)
CPT/HCPCS: 76770

== ENCOUNTER 2024-12-12 12:54 | Outpatient (CLI) | payer MEDICARE, BC, SELFPAY | END 2024-12-12 12:55 | disposition home or self-care (01) | PROVIDERS: Visit Provider Family Medicine | DX: R74.01 Elevation of levels of liver transaminase levels (principal); E11.9 Type 2 diabetes mellitus without complications; F10.20 Alcohol dependence, uncomplicated; D53.9 Nutritional anemia, unspecified | CPT/HCPCS: 80076; 82607 ==

== ENCOUNTER 2024-12-12 14:36 | Outpatient (CLI) | payer MEDICARE, BC, SELFPAY ==
[2024-12-12 22:28] LABS: PSA Diagnostic* 7.39 ng/mL (0.10-4.00)
[2024-12-14 19:42] LABS: Testosterone, Adult Male 269 ng/dL (300-720)
== END 2024-12-12 14:37 | disposition home or self-care (01) ==
LOC: NPINS 14:37
PROVIDERS: Visit Provider Physician Assistant
DX: C61 Malignant neoplasm of prostate (principal)
CPT/HCPCS: 84153; 84403

== ENCOUNTER 2025-01-01 14:45 | Outpatient (CLI) | payer MEDICARE, BC, SELFPAY ==
--- NOTE | 2025-01-01 15:00 | CRLHL7_ITS ---
For Patients: As a result of the Century Cures Act, medical imaging exams and procedure reports are released immediately into your electronic medical record. You may view this report before your referring provider. If you have questions, please contact your health care provider. DXA BONE MINERAL DENSITY STUDY Reason for exam: Primary malignant neoplasm of prostate. Current height (in): 71. Weight (lb): 230. Menopause age: Not applicable. Male. Ethnicity: White. 1. Have you had a previous hip or vertebral fracture? No. 2. Have you had any fractures during your adult life which did not result from significant trauma (e.g., auto accident)? No. 3. Did either of your parents have a hip fracture? No. 4. Do you smoke? No. 5. Have you ever taken Glucocorticoids? No. 6. Do you have rheumatoid arthritis? No. 7. Do you have secondary osteoporosis? No. 8. Do you drink 3 or more alcoholic drinks per day? Yes. 9. Are you being treated for osteoporosis? No. 10. Have you ever taken any of the following medications: Actonel, Evista, Fosamax, Miacalcin, Reclast, Boniva, Forteo, HRT (i.e. estrogen/hormone therapy), Protelos, Prolia, Vitamin D, Calcium, other ??? please specify. ANSWER: No. 11. Do you have any of the following medical conditions: Anorexia or bulimia, asthma or emphysema, end stage renal disease, hyperparathyroidism, any seizure disorders, cancer, inflammatory bowel diseases, hysterectomy, other ??? please specify. ANSWER: No. 12. What was your maximum height (inches)? 71. 13. Do you perform weight bearing exercise regularly? No. 14. Do you regularly consume dairy products? No. 15. Do you drink caffeinated beverages? Yes. TECHNIQUE: Bone mineral density study was performed using the [employer]. FINDINGS: The results of the study expressed as bone mineral density (BMD) are as follows: Lumbar spine L1 to L3: BMD: 1.415 g/cm2. T-score: 3.1. Z-score: 4.4. Neck Left: BMD: 1.016 g/cm2. T-score: 0.6. Z-score: 2.3. Right: BMD: 0.921 g/cm2. T-score: -0.1 . Z-score: 1.6. Total Left: BMD: 1.199 g/cm2. T-score: 1.1 . Z-score: 2.4. Right: BMD: 1.182 g/cm2. T-score: 1.0. Z-score: 2.3. IMPRESSION: Normal bone density. *Comparison exams done prior to 09/2019 were performed on different unit, [employer]. Fredrick Sears M.D. Diagnostic Radiologist [email or web address] SP/Dictated by: Fredrick Sears MD @ 01/01/2025 3:45:00 PM (Electronically Signed)
== END 2025-01-01 14:46 | disposition home or self-care (01) ==
LOC: RAD 14:45
PROVIDERS: PCP Family Medicine; Visit Provider Physician Assistant
DX: C61 Malignant neoplasm of prostate (principal); S22.31XA Fracture of one rib, right side, initial encounter for closed fracture
CPT/HCPCS: 77080